=== PATIENT | female | born 1935 | race Caucasian/White ===

== ENCOUNTER 2016-11-21 09:51 | Day surgery (SDC) | payer MEDICARE, BC ==
[2016-11-21] MEDS ORDERED: LACTATED RINGERS 500 ML IV ONE (09:59)
[2016-11-21] MEDS ORDERED: TROPICAMIDE 1% OPHTH 2 ML DROPS OPTH ONE ×2 (10:00→10:10)
[2016-11-21] MEDS ORDERED: KETOROLAC 0.45% OPHTH DROPS OPTH ONE ×2 (10:00→10:10)
[2016-11-21] MEDS ORDERED: CYCLOPENTOLATE 1% OPHTH DROPS 2 ML OPTH ONE ×2 (10:00→10:10)
[2016-11-21] MEDS ORDERED: MIDAZOLAM 2 MG/2 ML VIAL IVP ONE (11:26)
[2016-11-21] MEDS ORDERED: PROPARACAINE 0.5% OPHTH DROPS 15 ML OPTH ONE (11:28)
[2016-11-21] MEDS ORDERED: BRIMONIDINE 0.2% OPHTH DROPS 5 ML OPTH ONE (11:29)
[2016-11-21] MEDS ORDERED: EPINEPHrine 1 MG/ML AMP IO ONE (11:29)
[2016-11-21] MEDS ORDERED: levoFLOXacin 0.5% OPHTH DROPS 5 ML OPTH ONE (11:29)
[2016-11-21] MEDS ORDERED: TETRACAINE OPHTH DROPS 2 ML OPTH ONE (11:29)
[2016-11-21] MEDS ORDERED: CHONDR SULF/HYALURONATE SYRINGE IO ONE (11:29)
[2016-11-21] MEDS ORDERED: BSS/LIDOCAINE/EPINEPHRINE 1 ML SYRINGE IO ONE (11:29)
== END 2016-11-21 09:52 | disposition home or self-care (01) ==
PROC: 08RJ3JZ Replacement of Right Lens with Synthetic Substitute, Percutaneous Approach (ICD-10-PCS; principal; 2016-11-21 11:00)
DX: H25.11 Age-related nuclear cataract, right eye (principal); J45.909 Unspecified asthma, uncomplicated; R01.1 Cardiac murmur, unspecified; J32.9 Chronic sinusitis, unspecified
CPT/HCPCS: 66984; V2632

== ENCOUNTER 2016-12-19 09:54 | Day surgery (SDC) | payer MEDICARE, BC ==
[2016-12-19] MEDS ORDERED: LACTATED RINGERS 500 ML IV ONE (10:07)
[2016-12-19] MEDS ORDERED: TROPICAMIDE 1% OPHTH 2 ML DROPS OPTH ONE (10:23)
[2016-12-19] MEDS ORDERED: CYCLOPENTOLATE 1% OPHTH DROPS 2 ML OPTH ONE (10:23)
[2016-12-19] MEDS ORDERED: KETOROLAC 0.45% OPHTH DROPS OPTH ONE (10:23)
[2016-12-19] MEDS ORDERED: MIDAZOLAM 2 MG/2 ML VIAL IVP ONE (11:45)
[2016-12-19] MEDS ORDERED: PROPARACAINE 0.5% OPHTH DROPS 15 ML OPTH ONE (11:59)
[2016-12-19] MEDS ORDERED: levoFLOXacin 0.5% OPHTH DROPS 5 ML OPTH ONE (12:00)
[2016-12-19] MEDS ORDERED: TETRACAINE OPHTH DROPS 2 ML OPTH ONE (12:00)
[2016-12-19] MEDS ORDERED: EPINEPHrine 1 MG/ML AMP IO ONE (12:00)
[2016-12-19] MEDS ORDERED: CHONDR SULF/HYALURONATE SYRINGE IO ONE (12:00)
[2016-12-19] MEDS ORDERED: BSS/LIDOCAINE/EPINEPHRINE 1 ML SYRINGE IO ONE (12:00)
[2016-12-19] MEDS ORDERED: BRIMONIDINE 0.2% OPHTH DROPS 5 ML OPTH ONE (12:00)
== END 2016-12-19 09:55 | disposition home or self-care (01) ==
PROC: 08RK3JZ Replacement of Left Lens with Synthetic Substitute, Percutaneous Approach (ICD-10-PCS; principal; 2016-12-19 10:40)
DX: H25.12 Age-related nuclear cataract, left eye (principal); R06.83 Snoring; J45.909 Unspecified asthma, uncomplicated
CPT/HCPCS: 66984; V2632

== ENCOUNTER 2017-05-14 09:39 | Outpatient (CLI) | payer MEDICARE, BC ==
[2017-05-14 10:10] LABS: BASOPHILS % (AUTO) 0.6 %; EOSINOPHILS # (AUTO) 0.2 10^3/uL (0.0-0.7); EOSINOPHILS % (AUTO) 3.1 %; HGB - HEMOGLOBIN 13.6 g/dL (12.0-16.0); LYMPHOCYTES # (AUTO) 2.2 10^3/uL (1.5-3.5); LYMPHOCYTES % (AUTO) 29.8 %; MEAN CORPUSCULAR HGB CONC 33.3 g/dL (32.0-36.0); MEAN PLATELET VOLUME 7.8 fL (7.9-10.8); MONOCYTES # (AUTO) 0.7 10^3/uL (0.0-1.0); MONOCYTES % (AUTO) 9.1 %; NEUTROPHILS # (AUTO) 4.3 10^3/uL (1.5-6.6); NEUTROPHILS % (AUTO) 57.4 %; RED BLOOD COUNT 4.26 10^6/uL (4.20-5.40); RED CELL DISTRIBUTION WIDTH 16.6 % (12.0-15.0); UNCORRECTED WHITE BLOOD COUNT 7.4 x10^3/uL; WHITE BLOOD COUNT 7.4 x10^3/uL (4.8-10.8)
[2017-05-14 10:30] LABS: ALBUMIN/GLOBULIN RATIO 1.5 (1.0-2.2); BILIRUBIN,TOTAL 0.8 mg/dL (0.2-1.0); BUN - BLOOD UREA NITROGEN 22 mg/dL (6-20); CALCIUM 9.5 mg/dL (8.5-10.3); CARBON DIOXIDE - CO2 29 mmol/L (21-32); CHLORIDE 104 mmol/L (101-111); CHOL/HDL RATIO 2.7 (<4.4); CHOLESTEROL 208 mg/dL; CREATININE 0.7 mg/dL (0.4-1.0); GFR - MDRD 81 (>89); GLUCOSE 94 mg/dL (70-100); HDL CHOLESTEROL 78 mg/dL; LDL/HDL RATIO 1.6 (<4.4); POTASSIUM 4.1 mmol/L (3.5-5.0); SODIUM 140 mmol/L (135-145); TOTAL PROTEIN 7.1 g/dL (6.7-8.2); TRIGLYCERIDES 42 mg/dL; VLDL CHOLESTEROL 8 mg/dL
== END 2017-05-14 09:40 | disposition home or self-care (01) ==
LOC: LAB 09:39
PROVIDERS: ATTEND Family Medicine
DX: H69.81 Other specified disorders of Eustachian tube, right ear (principal); E83.52 Hypercalcemia; E78.5 Hyperlipidemia, unspecified; K21.9 Gastro-esophageal reflux disease without esophagitis
CPT/HCPCS: 36415; 80053; 80061; 84443; 85025

== ENCOUNTER 2017-05-21 10:36 | Outpatient (CLI) | payer MEDICARE, BC ==
--- NOTE | 2017-05-23 07:58 | DEXA Report ---
DEXA BONE MINERAL DENSITY SCAN: 05/21/2017 CLINICAL HISTORY: A 81-year-old postmenopausal female with osteoporosis. TECHNIQUE: Dual energy x-ray absorptiometry (DXA) was performed on a [employer] system. Regions measured are the AP spine, femoral neck, and, if needed, forearm. COMPARISON: None. In accordance with the International Society for Clinical Densitometry (ISCD) guidelines, data from previous exams may be reanalyzed using current recommendations and techniques. This is done to allow a more accurate basis for comparison with the current study. FINDINGS: The data for the lumbar spine is as follows: REGION BMD (g/cm/cm) T-SCORE Z-SCORE L1 0.737 -3.3 -1.0 L2 0.873 -2.7 -0.4 L3 0.857 -2.9 -0.6 L4 0.953 -2.1 0.2 TOTAL 0.825 -2.9 -0.6 NOTE: All evaluable vertebrae are used for classification. The data for the hip is as follows: REGION BMD (g/cm/cm) T-SCORE Z-SCORE Neck 0.749 -2.1 0.3 TOTAL 0.718 -2.3 0.0 NOTE: The femoral neck or total proximal femur, whichever is lowest, is used for classification. IMPRESSION: L1 THROUGH L3 BONE MINERAL DENSITY IS 0.825 GRAMS/CM2 FOR A T-SCORE OF -2.9. THIS IS COMPATIBLE WITH OSTEOPOROSIS ACCORDING TO THE WORLD HEALTH ORGANIZATION GUIDELINES. LEFT HIP TOTAL BONE MINERAL DENSITY IS 0.718 GRAMS/CM2 FOR A T-SCORE OF -2.3. THIS IS COMPATIBLE WITH SIGNIFICANT OSTEOPENIA. LEFT FEMORAL NECK BONE MINERAL DENSITY IS 0.749 GRAMS/CM2 FOR A T-SCORE OF - 2.1. THIS IS COMPATIBLE WITH OSTEOPENIA ACCORDING TO THE WORLD HEALTH ORGANIZATION GUIDELINES. THE WHO CLASSIFICATION BASED ON THE INTERNATIONAL REFERENCE STANDARD IS OSTEOPOROSIS. THE PATIENT HAS SIGNIFICANT INCREASED FRACTURE RISK. RECOMMENDATION: Patients with diagnosis of osteoporosis or osteopenia should have regular bone mineral density assessment. For those eligible for Medicare, routine testing is allowed once every 2 years. Testing frequency can be increased for patients who have rapidly progressing disease or for those who are receiving medical therapy to restore bone mass. COMMENT: World Health Organization (WHO) definitions for osteoporosis and osteopenia: NORMAL BMD: T-score at -1.0 or higher, fracture risk is low. OSTEOPENIA BMD: T-score between -1.0 and -2.5, fracture risk is increased. OSTEOPOROSIS BMD: T-score at -2.5 or lower, fracture risk high. National Osteoporosis Foundation recommends: 1. Obtain adequate dietary calcium (at least 1200 mg per day) and vitamin D (400 -800 international units per day). 2. Participate, as appropriate, in regular weightbearing and muscle- strengthening exercise. 3. Avoid tobacco use and reduce alcohol and caffeine intake. 4. For more detailed information see the website at www.NOF.org. MTDD
== END 2017-05-21 10:37 | disposition home or self-care (01) ==
LOC: DI 10:36
PROVIDERS: ATTEND Family Medicine
DX: M81.0 Age-related osteoporosis without current pathological fracture (principal)
CPT/HCPCS: 36415; 77080; 82306

== ENCOUNTER 2017-05-21 11:02 | Outpatient (CLI) | payer MEDICARE, BC | END 2017-05-21 11:03 | disposition home or self-care (01) | LOC: LAB 11:02 | PROVIDERS: ATTEND Family Medicine | DX: M81.0 Age-related osteoporosis without current pathological fracture (principal); M85.9 Disorder of bone density and structure, unspecified | CPT/HCPCS: 36415; 82306 ==

== ENCOUNTER 2018-05-28 14:43 | Outpatient (CLI) | payer MEDICARE, BC ==
--- NOTE | 2018-05-29 15:41 | Mammography Report ---
Procedure Date: 05/28/2018 Accession Number: [id number] / [id number] Procedure: MGN - Screening Mammo Dig Bilat CPT Code: FULL RESULT: EXAM: Screening Mammo Dig Bilat DATE: 05/28/2018 3:17 PM CLINICAL HISTORY: 82-year-old female with history of early menses and family history of breast cancer in the mother at age 72. TECHNIQUE: Bilateral CC and MLO views were obtained. COMPARISON: 08/06/2016, 04/22/2015, 07/27/2013, 06/12/2012. FINDINGS: The breasts demonstrate scattered fibroglandular densities bilaterally. Coarse typically benign calcifications are seen bilaterally. No suspicious masses, clustered microcalcifications, or regions of architectural distortion are identified. IMPRESSION: Benign findings RECOMMENDATION: Routine annual screening unless otherwise clinically indicated. BIRADS CATEGORY 2: Benign findings STANDARD QUALIFYING STATEMENTS: 1. This examination was reviewed with the aid of Computer-Aided Detection (CAD). 2. A negative or benign imaging report should not delay biopsy if clinically suspicious findings are present. Consider surgical consultation if warrented. More than 5% of cancers are not identified by imaging. 3. Dense breasts may obscure an underlying neoplasm.
== END 2018-05-28 14:44 | disposition home or self-care (01) ==
LOC: DI.N 14:43
PROVIDERS: ATTEND Family Medicine
DX: Z12.31 Encounter for screening mammogram for malignant neoplasm of breast (principal); Z80.3 Family history of malignant neoplasm of breast
CPT/HCPCS: 77067

== ENCOUNTER 2018-06-17 09:17 | Outpatient (CLI) | payer MEDICARE, BC ==
[2018-06-17 09:46] LABS: BASOPHILS # (AUTO) 0.2 10^3/uL (0.0-0.1); BASOPHILS % (AUTO) 2.4 %; EOSINOPHILS # (AUTO) 0.3 10^3/uL (0.0-0.7); EOSINOPHILS % (AUTO) 3.3 %; HGB - HEMOGLOBIN 13.2 g/dL (12.0-16.0); LYMPHOCYTES # (AUTO) 2.4 10^3/uL (1.5-3.5); LYMPHOCYTES % (AUTO) 26.4 %; MEAN CORPUSCULAR HEMOGLOBIN 31.4 pg (27.0-31.0); MEAN CORPUSCULAR HGB CONC 33.2 g/dL (32.0-36.0); MEAN CORPUSCULAR VOLUME 94.5 fL (81.0-99.0); MEAN PLATELET VOLUME 7.8 fL (7.9-10.8); MONOCYTES # (AUTO) 0.8 10^3/uL (0.0-1.0); MONOCYTES % (AUTO) 8.5 %; NEUTROPHILS # (AUTO) 5.5 10^3/uL (1.5-6.6); NEUTROPHILS % (AUTO) 59.4 %; PLT - PLATELET COUNT 294 10^3/uL (130-450); RED BLOOD COUNT 4.21 10^6/uL (4.20-5.40); RED CELL DISTRIBUTION WIDTH 18.4 % (12.0-15.0); WHITE BLOOD COUNT 9.3 x10^3/uL (4.8-10.8)
[2018-06-17 10:11] LABS: ALBUMIN 4.1 g/dL (3.2-5.5); ALBUMIN/GLOBULIN RATIO 1.2 (1.0-2.2); ALKALINE PHOSPHATASE 112 IU/L (42-121); ALT ALANINE AMINOTRANSFERASE 30 IU/L (10-60); AST ASPARTATE AMINOTRANSFERASE 39 IU/L (10-42); BUN - BLOOD UREA NITROGEN 15 mg/dL (6-20); CALCIUM 9.2 mg/dL (8.5-10.3); CARBON DIOXIDE - CO2 30 mmol/L (21-32); CHLORIDE 102 mmol/L (101-111); CHOL/HDL RATIO 2.6 (<4.4); CHOLESTEROL 207 mg/dL; CREATININE 0.7 mg/dL (0.4-1.0); GFR - MDRD 81 (>89); GLUCOSE 86 mg/dL (70-100); HDL CHOLESTEROL 81 mg/dL; LDL CHOLESTEROL,CALCULATED 115 mg/dL; LDL/HDL RATIO 1.4 (<4.4); SODIUM 140 mmol/L (135-145); TOTAL PROTEIN 7.6 g/dL (6.7-8.2); VLDL CHOLESTEROL 11 mg/dL
== END 2018-06-17 09:18 | disposition home or self-care (01) ==
LOC: LAB 09:17
PROVIDERS: ATTEND Family Medicine
DX: R03.0 Elevated blood-pressure reading, without diagnosis of hypertension (principal); S32.030D Wedge compression fracture of third lumbar vertebra, subsequent encounter for fracture with routine healing; M54.2 Cervicalgia; N81.10 Cystocele, unspecified; R35.0 Frequency of micturition; I83.90 Asymptomatic varicose veins of unspecified lower extremity; I34.0 Nonrheumatic mitral (valve) insufficiency; I35.0 Nonrheumatic aortic (valve) stenosis
CPT/HCPCS: 36415; 80053; 80061; 83721; 84443; 85025

== ENCOUNTER 2018-09-12 12:58 | Emergency (ER) | payer MEDICARE, BC ==
--- NOTE | 2018-09-12 13:35 | ED Physician Documentation ---
History of Present Illness - Stated complaint Stated Complaint: NOSE BLEED - Chief complaint Chief Complaint: Heent - Additonal information Additional information: hx from pt 82 f to ED with L nares epsitaxis after sneeze no blood thinners also has and is planning to have AVR Review of Systems Nose: reports: Epistaxis Endocrine: denies: Easy bruising / bleeding PD PAST MEDICAL HISTORY - Past Medical History Cardiovascular: Murmur Respiratory: Asthma GI: GERD : None HEENT: Chronic sinusitis Psych: None Musculoskeletal: Osteoarthritis, Osteopenia - Past Surgical History Ortho: Carpal Tunnel surgery, Spine surgery - Present Medications Home Medications: Ambulatory Orders Medication Instructions Recorded Confirmed Beclomethasone Dipropionate [Qvar] 1 spray PO DAILY 05/01/16 12/18/16 Fluticasone [Flonase] 1 spray PO DAILY 05/01/16 12/18/16 Meclizine HCl [Antivert] 25 mg PO Q6H PRN #30 tablet 05/01/16 12/18/16 raNITIdine [Zantac] 150 mg PO DAILY 05/01/16 12/18/16 Albuterol Sulfate [Proair Hfa 1 puffs INH Q4HR PRN 11/21/16 12/18/16 Inhaler] Ascorbic Acid [Vitamin C] 500 mg PO DAILY 11/21/16 12/18/16 Aspirin [Aspir-Low] 81 mg PO DAILY 11/21/16 12/18/16 Calcium Carbonate/Vitamin D3 1 each PO DAILY 11/21/16 12/18/16 [Calcium 600-Vit D3 400 Tablet] Magnesium Oxide [Magnesium] 400 mg PO DAILY 11/21/16 12/18/16 Multivitamin [Multiple Vitamins] 1 tab PO DAILY 11/21/16 12/18/16 - Allergies Allergies/Adverse Reactions: Allergies Allergy/AdvReac Type Severity Reaction Status Date / Time pramipexole di-HCl * AdvReac Dizziness Verified 11/21/16 10:18 [From Mirapex] - Social History Does the pt smoke?: No Smoking Status: Never smoker Does the pt drink ETOH?: No Does the pt have substance abuse?: No PD ED PE NORMAL - Vitals Vital signs reviewed: Yes - HEENT HEENT: Other (L nares with several punctae spots of bleeding anterior plexus) - Cardiac Cardiac: RRR. No: No murmur (+ upper sternal murmur) - Respiratory Respiratory: Clear bilaterally Results - Vitals Vitals: Vital Signs - 24 hr 09/12/18 09/12/18 13:04 13:47 Temperature 36.5 C Heart Rate 83 84 Respiratory 18 18 Rate Blood Pressure 107/79 108/80 O2 Saturation 99 100 Oxygen O2 Source Room air Procedures - Epistaxis Site: Left Preparation: Clots removed, Afrin (pt used bell captain) Treatment: Silver Nitrate Other: Observed - no bleeding, O2 sat WNL. No: Pt tolerated well (she felt fa int and dizzy an dlaid down for a bit and recivered) PD MEDICAL DECISION MAKING - ED course ED course: pt due for AVR for and often feels faitn and dizzy - had an episode after cautery - this is not new and has been worked up and is being addressed by cardiology Departure - Departure Disposition: 01 Home, Self Care Clinical Impression: Epistaxis Condition: Good Instructions: ED Nosebleed Follow-Up: Leah Hook MD [Primary Care Provider] - Comments: I have cauterized the bleeding spots and the bleeding has stopped If for some reason the bleeding starts again, please do the following steps 1) gently blow your nose to remove any clots 2) give yourself a big squirt of afrin in the bleeding nostril 3) apply the nose clamp we gave you and leave it on for a full 30 minutes 4) if that doesn't stop the bleeding, come back to the ER
[2018-09-12 13:49] VITALS: BP 108/80
== END 2018-09-12 13:47 | disposition home or self-care (01) ==
LOC: ED 12:58
DX: R04.0 Epistaxis (principal); Z79.82 Long term (current) use of aspirin
CPT/HCPCS: 30901; 99282; 99283

== ENCOUNTER 2019-01-28 12:42 | Outpatient (CLI) | payer MEDICARE, BC ==
[2019-01-28 13:05] LABS: INR 1.5 (0.8-1.2); PT - PROTHROMBIN TIME 16.5 secs (9.9-12.6)
== END 2019-01-28 12:43 | disposition home or self-care (01) ==
LOC: LAB 12:42
DX: I48.91 Unspecified atrial fibrillation (principal)
CPT/HCPCS: 36415; 85610

== ENCOUNTER 2019-01-30 12:11 | Outpatient (CLI) | payer MEDICARE, BC | END 2019-01-30 12:12 | disposition home or self-care (01) | LOC: LAB 12:11 | PROVIDERS: ATTEND Family Medicine | DX: Z95.2 Presence of prosthetic heart valve (principal) | CPT/HCPCS: 85610 ==

== ENCOUNTER 2019-02-06 11:55 | Outpatient (CLI) | payer MEDICARE, BC | END 2019-02-06 11:56 | disposition home or self-care (01) | LOC: LAB 11:55 | PROVIDERS: ATTEND Family Medicine | DX: Z95.2 Presence of prosthetic heart valve (principal) | CPT/HCPCS: 85610 ==

== ENCOUNTER 2019-02-16 11:55 | Outpatient (CLI) | payer MEDICARE, BC | END 2019-02-16 11:56 | disposition home or self-care (01) | LOC: LAB 11:55 | PROVIDERS: ATTEND Family Medicine | DX: Z95.2 Presence of prosthetic heart valve (principal) | CPT/HCPCS: 36415; 85610 ==

== ENCOUNTER 2019-02-23 12:05 | Outpatient (CLI) | payer MEDICARE, BC | END 2019-02-23 12:06 | disposition home or self-care (01) | LOC: LAB 12:05 | PROVIDERS: ATTEND Family Medicine | DX: Z95.2 Presence of prosthetic heart valve (principal) | CPT/HCPCS: 85610 ==

== ENCOUNTER 2019-03-03 14:53 | Outpatient (CLI) | payer MEDICARE, BC | END 2019-03-03 14:54 | disposition home or self-care (01) | LOC: LAB 14:53 | PROVIDERS: ATTEND Family Medicine | DX: Z95.2 Presence of prosthetic heart valve (principal) | CPT/HCPCS: 85610 ==

== ENCOUNTER 2019-03-11 09:55 | Outpatient (CLI) | payer MEDICARE, BC | END 2019-03-11 09:56 | disposition home or self-care (01) | LOC: LAB 09:55 | PROVIDERS: ATTEND Family Medicine | DX: Z95.2 Presence of prosthetic heart valve (principal) | CPT/HCPCS: 85610 ==

== ENCOUNTER 2019-03-18 11:48 | Outpatient (CLI) | payer MEDICARE, BC | END 2019-03-18 11:49 | disposition home or self-care (01) | LOC: LAB 11:48 | PROVIDERS: ATTEND Family Medicine | DX: Z95.2 Presence of prosthetic heart valve (principal) | CPT/HCPCS: 85610 ==

== ENCOUNTER 2019-03-25 11:55 | Outpatient (CLI) | payer MEDICARE, BC | END 2019-03-25 11:56 | disposition home or self-care (01) | LOC: LAB 11:55 | PROVIDERS: ATTEND Family Medicine | DX: Z95.2 Presence of prosthetic heart valve (principal) | CPT/HCPCS: 85610 ==

== ENCOUNTER 2019-04-01 11:58 | Outpatient (CLI) | payer MEDICARE, BC | END 2019-04-01 11:59 | disposition home or self-care (01) | LOC: LAB 11:58 | PROVIDERS: ATTEND Family Medicine | DX: Z95.2 Presence of prosthetic heart valve (principal) | CPT/HCPCS: 85610 ==

== ENCOUNTER 2019-04-15 11:51 | Outpatient (CLI) | payer MEDICARE, BC | END 2019-04-15 11:52 | disposition home or self-care (01) | LOC: LAB 11:51 | PROVIDERS: ATTEND Family Medicine | DX: Z95.2 Presence of prosthetic heart valve (principal) | CPT/HCPCS: 85610 ==

== ENCOUNTER 2019-04-22 08:00 | Outpatient (CLI) | payer MEDICARE, BC ==
[2019-04-22 09:34] LABS: BASOPHILS # (AUTO) 0.2 10^3/uL (0.0-0.1); BASOPHILS % (AUTO) 1.1 %; EOSINOPHILS # (AUTO) 0.3 10^3/uL (0.0-0.7); EOSINOPHILS % (AUTO) 2.2 %; HGB - HEMOGLOBIN 13.1 g/dL (12.0-16.0); LYMPHOCYTES # (AUTO) 1.8 10^3/uL (1.5-3.5); LYMPHOCYTES % (AUTO) 13.9 %; MEAN CORPUSCULAR HEMOGLOBIN 29.6 pg (27.0-31.0); MEAN CORPUSCULAR HGB CONC 30.5 g/dL (32.0-36.0); MEAN CORPUSCULAR VOLUME 97.1 fL (81.0-99.0); MEAN PLATELET VOLUME 9.9 fL (7.9-10.8); MONOCYTES # (AUTO) 1.1 10^3/uL (0.0-1.0); MONOCYTES % (AUTO) 8.3 %; NEUTROPHILS # (AUTO) 9.7 10^3/uL (1.5-6.6); PLT - PLATELET COUNT 252 10^3/uL (130-450); RED BLOOD COUNT 4.42 10^6/uL (4.20-5.40); RED CELL DISTRIBUTION WIDTH 16.7 % (12.0-15.0); WHITE BLOOD COUNT 13.1 x10^3/uL (4.8-10.8)
[2019-04-22 09:55] LABS: ALBUMIN 4.5 g/dL (3.2-5.5); ALBUMIN/GLOBULIN RATIO 1.2 (1.0-2.2); ALKALINE PHOSPHATASE 117 IU/L (42-121); ALT ALANINE AMINOTRANSFERASE 40 IU/L (10-60); AST ASPARTATE AMINOTRANSFERASE 50 IU/L (10-42); BILIRUBIN,TOTAL 1.1 mg/dL (0.2-1.0); BUN - BLOOD UREA NITROGEN 26 mg/dL (6-20); CALCIUM 9.5 mg/dL (8.5-10.3); CARBON DIOXIDE - CO2 26 mmol/L (21-32); CHLORIDE 101 mmol/L (101-111); CHOL/HDL RATIO 2.7 (<4.4); CHOLESTEROL 226 mg/dL; CREATININE 0.8 mg/dL (0.4-1.0); GFR - MDRD 69 (>89); GLUCOSE 91 mg/dL (70-100); HDL CHOLESTEROL 85 mg/dL; LDL CHOLESTEROL,CALCULATED 126 mg/dL; LDL/HDL RATIO 1.5 (<4.4); SODIUM 138 mmol/L (135-145); TOTAL PROTEIN 8.2 g/dL (6.7-8.2); VLDL CHOLESTEROL 15 mg/dL
== END 2019-04-22 23:59 | disposition home or self-care (01) ==
LOC: LAB 08:00
PROVIDERS: ATTEND Family Medicine
DX: E78.5 Hyperlipidemia, unspecified (principal); I10 Essential (primary) hypertension
CPT/HCPCS: 36415; 80053; 80061; 83721; 84443; 85025

== ENCOUNTER 2019-04-27 11:24 | Emergency (ER) | payer MEDICARE, BC ==
[2019-04-27 12:25] LABS: BASOPHILS # (AUTO) 0.1 10^3/uL (0.0-0.1); BASOPHILS % (AUTO) 1.3 %; EOSINOPHILS # (AUTO) 0.4 10^3/uL (0.0-0.7); EOSINOPHILS % (AUTO) 3.7 %; HGB - HEMOGLOBIN 13.7 g/dL (12.0-16.0); LYMPHOCYTES # (AUTO) 2.7 10^3/uL (1.5-3.5); LYMPHOCYTES % (AUTO) 26.6 %; MEAN CORPUSCULAR HEMOGLOBIN 29.7 pg (27.0-31.0); MEAN CORPUSCULAR HGB CONC 30.3 g/dL (32.0-36.0); MEAN CORPUSCULAR VOLUME 97.8 fL (81.0-99.0); MONOCYTES # (AUTO) 0.7 10^3/uL (0.0-1.0); NEUTROPHILS # (AUTO) 6.3 10^3/uL (1.5-6.6); PLT - PLATELET COUNT 261 10^3/uL (130-450); RED BLOOD COUNT 4.62 10^6/uL (4.20-5.40); RED CELL DISTRIBUTION WIDTH 16.9 % (12.0-15.0); WHITE BLOOD COUNT 10.3 x10^3/uL (4.8-10.8)
[2019-04-27 12:39] LABS: ALBUMIN 4.4 g/dL (3.2-5.5); ALBUMIN/GLOBULIN RATIO 1.2 (1.0-2.2); BILIRUBIN,TOTAL 0.7 mg/dL (0.2-1.0); CALCIUM 9.8 mg/dL (8.5-10.3); CREATININE 0.7 mg/dL (0.4-1.0)
--- NOTE | 2019-04-27 12:46 | XRAY Report ---
Reason: lightheaded, cardiac rehab pt Procedure Date: 04/27/2019 Accession Number: [id number] / [id number] Procedure: XR - Chest 1 View X-Ray CPT Code: 54646 FULL RESULT: EXAM: CHEST RADIOGRAPHY EXAM DATE: 04/27/2019 12:21 PM. CLINICAL HISTORY: Lightheaded, cardiac rehab pt. COMPARISON: None. TECHNIQUE: 1 view. FINDINGS: Lungs/Pleura: No acute pulmonary consolidation is detected. There is no overt pulmonary edema. There is no sizable pleural effusion or pneumothorax. Mediastinum: Enlarged cardiomediastinal silhouette in the setting of stent material in the region of the aortic valve, possible TAVR, prior median sternotomy changes and a pacemaker with leads in expected positions. Other: Additional hardware projecting along the extent of sternal wires, possible further sternal fixation hardware. IMPRESSION: Cardiomegaly and prior cardiac surgery. No acute pulmonary abnormality detected. RADIA
--- NOTE | 2019-04-27 13:32 | ED Physician Documentation ---
PD HPI SYNCOPE - Stated complaint Stated Complaint: LIGHT HEADED - Chief complaint Chief Complaint: Critical Care - History obtained from History obtained from: Patient - History of Present Illness Witnessed: Witnessed (she was on treadmill at Cardiac Rehab, and the mechine was just placed to some incline, as she was doing it, and she felt dyspnea and off balance (versus lightheaded, and she has hard time describing what she is feeling - more lightheaded versus more off balance/falling? Able to talk through the symptoms.) Timing - onset: How many minutes ago (was in Cardiac Rehab with symptoms onset of feeling like she was going to fall over, and she is feeling better now.) Preceding symptoms: Nausea / vomiting, Light headed (with feeling of vertigo and off balance.). No: Chest pain, Abdominal pain Associated symptoms: Headache (some frontal headache for past 2-3 weeks intermittently.). No: Chest pain Similar symptoms before: No diagnosis (had similar symptoms last Saturday (3 days ago) also when on treadmill at Cardiac Rehab, with not as much feeling of off- balance. No chest pain and BP was good through.) Recently seen: Clinic, Not recently seen Review of Systems Constitutional: denies: Fever, Chills, Myalgias Eyes: denies: Loss of vision, Decreased vision Ears: denies: Reviewed and negative Nose: reports: Sinus pressure / pain (chronically but worse the past week or so.). denies: Rhinorrhea / runny nose, Congestion Throat: denies: Dental pain / toothache Cardiac: denies: Chest pain / pressure, Palpitations Respiratory: denies: Dyspnea, Cough Musculoskeletal: denies: Neck pain, Back pain Neurologic: reports: Generalized weakness. denies: Focal weakness, Numbness Endocrine: denies: Weight loss, Weight gain PD PAST MEDICAL HISTORY - Past Medical History Cardiovascular: Murmur Respiratory: Asthma GI: GERD : None HEENT: Chronic sinusitis Psych: None Musculoskeletal: Osteoarthritis, Osteopenia - Past Surgical History Ortho: Carpal Tunnel surgery, Spine surgery - Present Medications Home Medications: Ambulatory Orders Medication Instructions Recorded Confirmed Beclomethasone Dipropionate [Qvar] 1 spray PO DAILY 05/01/16 12/18/16 Fluticasone [Flonase] 1 spray PO DAILY 05/01/16 12/18/16 Meclizine HCl [Antivert] 25 mg PO Q6H PRN #30 tablet 05/01/16 12/18/16 raNITIdine [Zantac] 150 mg PO DAILY 05/01/16 12/18/16 Albuterol Sulfate [Proair Hfa 1 puffs INH Q4HR PRN 11/21/16 12/18/16 Inhaler] Ascorbic Acid [Vitamin C] 500 mg PO DAILY 11/21/16 12/18/16 Aspirin [Aspir-Low] 81 mg PO DAILY 11/21/16 12/18/16 Calcium Carbonate/Vitamin D3 1 each PO DAILY 11/21/16 12/18/16 [Calcium 600-Vit D3 400 Tablet] Magnesium Oxide [Magnesium] 400 mg PO DAILY 11/21/16 12/18/16 Multivitamin [Multiple Vitamins] 1 tab PO DAILY 11/21/16 12/18/16 Meclizine [Antivert] 12.5 mg PO Q6H PRN #30 tablet 04/27/19 dexAMETHasone [Decadron] 4 mg PO DAILY #5 tablet 04/27/19 - Allergies Allergies/Adverse Reactions: Allergies Allergy/AdvReac Type Severity Reaction Status Date / Time gabapentin AdvReac Dizziness Verified 04/27/19 11:41 pramipexole di-HCl * AdvReac Dizziness Verified 04/27/19 11:41 [From Mirapex] - Living Situation Living Situation: reports: Alone, With caregiver(s) - Social History Does the pt smoke?: No Smoking Status: Never smoker Does the pt drink ETOH?: No Does the pt have substance abuse?: No PD ED PE NORMAL - Vitals Vital signs reviewed: Yes - General General: Alert and oriented X 3, No acute distress, Well developed/nourished - HEENT HEENT: Ears normal, Pharynx benign, Other (frontal sinus pressure to percussion. ) - Neck Neck: Supple, no meningeal sign, No adenopathy, No JVD, No bruit - Cardiac Cardiac: RRR, No murmur - Respiratory Respiratory: No respiratory distress, Clear bilaterally - Abdomen Abdomen: Normal bowel sounds, Soft, Non tender - Female Female : Deferred - Rectal Rectal: Deferred - Back Back: No CVA TTP - Derm Derm: Normal color, Warm and dry - Neuro Neuro: No motor deficit, No sensory deficit Results - Vitals Vitals: Vital Signs - 24 hr 04/27/19 04/27/19 04/27/19 11:26 13:31 16:12 Temperature 36.6 C 36.5 C Heart Rate 73 82 54 L Respiratory 14 18 14 Rate Blood Pressure 154/78 H 148/76 H 131/74 H O2 Saturation 100 99 97 Oxygen O2 Source Room air - EKG (time done) 11:32 Rate: Rate (enter#) (76) Rhythm: NSR Intervals: RBBB Ischemia: Normal ST segments, Non specific changes. No: ST elevation c/w ischemia, ST depression - Labs Labs: Laboratory Tests 04/27/19 04/27/19 04/27/19 12:20 12:20 12:20 WBC 10.3 RBC 4.62 Hgb 13.7 Hct 45.2 MCV 97.8 MCH 29.7 MCHC 30.3 L RDW 16.9 H Plt Count 261 MPV 10.0 Neut # (Auto) 6.3 Lymph # (Auto) 2.7 [place] # (Auto) 0.7 Eos # (Auto) 0.4 Baso # (Auto) 0.1 Absolute Nucleated RBC 0.00 Nucleated RBC % 0.0 PT INR Sodium 138 Potassium 4.0 Chloride 101 Carbon Dioxide 26 Anion Gap 11.0 BUN 17 Creatinine 0.7 Estimated GFR (MDRD) 80 L Glucose 94 Calcium 9.8 Magnesium Total Bilirubin 0.7 AST 54 H ALT 48 Alkaline Phosphatase 134 H Troponin I < 0.04 B-Natriuretic Peptide Total Protein 8.0 Albumin 4.4 Globulin 3.6 Albumin/Globulin Ratio 1.2 Lipase 42 Urine Color Urine Clarity Urine pH Ur Specific [place] Urine Protein Urine Glucose (UA) Urine Ketones Urine Occult Blood Urine Nitrite Urine Bilirubin Urine Urobilinogen Ur Leukocyte Esterase Urine RBC Urine WBC Ur Squamous Epith Cells Urine Bacteria Urine Culture Comments 04/27/19 04/27/19 04/27/19 12:20 12:20 12:20 WBC RBC Hgb Hct MCV MCH MCHC RDW Plt Count MPV Neut # (Auto) Lymph # (Auto) [place] # (Auto) Eos # (Auto) Baso # (Auto) Absolute Nucleated RBC Nucleated RBC % PT 27.4 H INR 2.5 H Sodium Potassium Chloride Carbon Dioxide Anion Gap BUN Creatinine Estimated GFR (MDRD) Glucose Calcium Magnesium 2.6 Total Bilirubin AST ALT Alkaline Phosphatase Troponin I B-Natriuretic Peptide 337 H Total Protein Albumin Globulin Albumin/Globulin Ratio Lipase Urine Color Urine Clarity Urine pH Ur Specific [place] Urine Protein Urine Glucose (UA) Urine Ketones Urine Occult Blood Urine Nitrite Urine Bilirubin Urine Urobilinogen Ur Leukocyte Esterase Urine RBC Urine WBC Ur Squamous Epith Cells Urine Bacteria Urine Culture Comments 04/27/19 15:57 WBC RBC Hgb Hct MCV MCH MCHC RDW Plt Count MPV Neut # (Auto) Lymph # (Auto) [place] # (Auto) Eos # (Auto) Baso # (Auto) Absolute Nucleated RBC Nucleated RBC % PT INR Sodium Potassium Chloride Carbon Dioxide Anion Gap BUN Creatinine Estimated GFR (MDRD) Glucose Calcium Magnesium Total Bilirubin AST ALT Alkaline Phosphatase Troponin I B-Natriuretic Peptide Total Protein Albumin Globulin Albumin/Globulin Ratio Lipase Urine Color LIGHT YELLOW Urine Clarity CLEAR Urine pH 7.5 Ur Specific [place] <=1.005 Urine Protein NEGATIVE Urine Glucose (UA) NEGATIVE Urine Ketones NEGATIVE Urine Occult Blood NEGATIVE Urine Nitrite NEGATIVE Urine Bilirubin NEGATIVE Urine Urobilinogen 0.2 (NORMAL) Ur Leukocyte Esterase NEGATIVE Urine RBC 0-5 Urine WBC 0-3 Ur Squamous Epith Cells RARE Squamous Urine Bacteria Rare Urine Culture Comments NOT INDICATED - Rads (name of study) chest xray Radiology: Prelim report reviewed (cardiomegaly, with clear rucker otherwise. ), EMP read contemporaneously, See rad report head CT Radiology: Prelim report reviewed (sinus congestion, appears wall thickening. No bleeding. ), EMP read contemporaneously, See rad report PD MEDICAL DECISION MAKING - ED course Complexity details: re-evaluated patient, considered differential (somewhat describes as congestion, URI, vertigo and would eval/treat with the brain being focus of issue. ), d/w patient ED course: Symptoms better with Meclizine. Seems likely inner ear and contributed it to the symptoms of vertigo. Has pacer and regular rhythm, so presume is not heart related. Got most recent ECHO from April 12, and had EF 45%. Normal wall motion (report gotten from [place]). Departure - Departure Disposition: 01 Home, Self Care Clinical Impression: Episodic lightheadedness, Vertigo Acute inflammation of sinus Qualifiers: Sinusitis location: unspecified location Recurrence: recurrent Qualified Code(s): J01.91 - Acute recurrent sinusitis, unspecified Condition: Stable Record reviewed to determine appropriate education?: Yes Instructions: ED Dizziness UKO Follow-Up: Leah Hook MD [Primary Care Provider] - Prescriptions: dexAMETHasone [Decadron] 4 mg PO DAILY #5 tablet Meclizine [Antivert] 12.5 mg PO Q6H PRN #30 tablet PRN Reason: Vertigo Comments: Continue your current medications. Add Decadron steroid orally for the next 5 days to reduce inflammation in the sinuses and presumably the inner ear. Add meclizine as needed for dizziness. Continue with the cardiac rehab. Follow-up with your primary care in the next several days, call for an appointment. Your recent echocardiogram at [facility] showed good function of the heart valve and general pumping of the heart. I do not think this is a heart related episode with your feeling off balance and lightheaded. Discharge Date/Time: 04/27/19 16:17
[2019-04-27] MEDS ORDERED: MECLIZINE 12.5 MG TABLET PO STA (14:32)
[2019-04-27] MEDS ORDERED: ACETAMINOPHEN 325 MG TABLET PO STA (14:32)
[2019-04-27 15:15] LABS: INR 2.5 (0.8-1.2); PT - PROTHROMBIN TIME 27.4 secs (9.9-12.6)
--- NOTE | 2019-04-27 15:37 | CT Report ---
Reason: headache and lightheaded; on coumadin Procedure Date: 04/27/2019 Accession Number: [id number] / [id number] Procedure: CT - HEAD WO CPT Code: FULL RESULT: EXAM: CT HEAD EXAM DATE: 04/27/2019 03:25 PM. CLINICAL HISTORY: Headache and lightheaded; on Coumadin. COMPARISON: HEAD W/O 05/01/2016 10:25 AM. TECHNIQUE: Multiaxial CT images were obtained from the foramen magnum to the vertex. Reformats: Sagittal and coronal. IV contrast: None. In accordance with CT protocol optimization, one or more of the following dose reduction techniques were utilized for this exam: automated exposure control, adjustment of mA and/or KV based on patient size, or use of iterative reconstructive technique. FINDINGS: Parenchyma: No intraparenchymal hemorrhage. No evidence of mass, midline shift. Rubalcava-white differentiation is distinct. Extraaxial Spaces: Normal for age. No subdural or epidural collections identified. Ventricles: Normal in size and position. Sinuses and Orbits: Partial opacification of the ethmoid air cells and portions of the frontal sinuses are again seen, less pronounced compared to prior. There is a minimal amount of right mastoid fluid with the remaining mastoids aerated. Orbits are within normal limits. Bones: No evidence of fracture or calvarial defect. Other: None. IMPRESSION: No acute intracranial abnormality. Redemonstration of sinus disease. RADIA
[2019-04-27 16:01] LABS: BILIRUBIN,URINE NEGATIVE (NEGATIVE); GLUCOSE, URINE (UA) NEGATIVE (NEGATIVE); KETONES,URINE (UA) NEGATIVE (NEGATIVE); LEUKOCYTE ESTERASE, URINE NEGATIVE (NEGATIVE); NITRITE,URINE NEGATIVE (NEGATIVE); OCCULT BLOOD,URINE NEGATIVE (NEGATIVE); PH,URINE 7.5 PH (5.0-7.5); PROTEIN,URINE NEGATIVE (NEGATIVE); UROBILINOGEN,URINE 0.2 (NORMAL) E.U./dL (NORMAL)
[2019-04-27] MEDS ORDERED: CHERRY SYRUP 10 ML UDC PO ONE (16:01)
[2019-04-27] MEDS ORDERED: DEXAMETHASONE 10 MG/ML VIAL PO STA (16:01)
[2019-04-27 16:06] LABS: CLARITY,URINE CLEAR (CLEAR)
[2019-04-27 16:12] VITALS: BP 131/74
[2019-04-27 16:19] LABS: BACTERIA,URINE Rare /HPF (None Seen); RBC,URINE 0-5 /HPF (0-5); SQUAMOUS EPITHELIAL CELL,UR RARE Squamous (<= Few)
== END 2019-04-27 16:17 | disposition home or self-care (01) ==
LOC: ED 11:24
DX: R42 Dizziness and giddiness (principal); J01.91 Acute recurrent sinusitis, unspecified; I51.7 Cardiomegaly; I45.10 Unspecified right bundle-branch block; Z95.0 Presence of cardiac pacemaker; Z79.82 Long term (current) use of aspirin
CPT/HCPCS: 36415; 70450; 71045; 80053; 81001; 83690; 83735; 83880; 84484; 85025; 85610; 93005; 99283; A9270; 87086

== ENCOUNTER 2019-05-20 15:31 | Outpatient (CLI) | payer MEDICARE, BC | END 2019-05-20 15:32 | disposition home or self-care (01) | LOC: LAB 15:31 | PROVIDERS: ATTEND Family Medicine | DX: Z95.2 Presence of prosthetic heart valve (principal) | CPT/HCPCS: 85610 ==

== ENCOUNTER 2019-06-03 16:15 | Outpatient (CLI) | payer MEDICARE, BC | END 2019-06-03 16:16 | disposition home or self-care (01) | LOC: LAB 16:15 | PROVIDERS: ATTEND Family Medicine | DX: Z95.2 Presence of prosthetic heart valve (principal) | CPT/HCPCS: 85610 ==

== ENCOUNTER 2019-07-24 16:19 | Outpatient (CLI) | payer MEDICARE, BC | END 2019-07-24 16:20 | disposition home or self-care (01) | LOC: LAB 16:19 | PROVIDERS: ATTEND Family Medicine | DX: Z95.2 Presence of prosthetic heart valve (principal) | CPT/HCPCS: 85610 ==

== ENCOUNTER 2019-08-05 16:27 | Outpatient (CLI) | payer MEDICARE, BC | END 2019-08-05 16:28 | disposition home or self-care (01) | LOC: LAB 16:27 | PROVIDERS: ATTEND Family Medicine | DX: Z95.2 Presence of prosthetic heart valve (principal) | CPT/HCPCS: 85610 ==

== ENCOUNTER 2019-08-12 16:57 | Outpatient (CLI) | payer MEDICARE, BC | END 2019-08-12 16:58 | disposition home or self-care (01) | LOC: LAB 16:57 | PROVIDERS: ATTEND Family Medicine | DX: Z95.2 Presence of prosthetic heart valve (principal) | CPT/HCPCS: 85610 ==

== ENCOUNTER 2019-08-13 11:51 | Emergency (ER) | payer MEDICARE, BC ==
[2019-08-13 11:59] VITALS: BP 128/82
[2019-08-13] MEDS ORDERED: OXYMETAZOLINE HCL 100 SPRAYS BOTTLE NAS STA (12:15)
[2019-08-13] MEDS ORDERED: LIDOCAINE 1%-EPI 1:100000 20 ML MDV SUBQ STA (12:15)
--- NOTE | 2019-08-13 12:16 | ED Physician Documentation ---
History of Present Illness - Stated complaint Stated Complaint: NOSE BLEED - Chief complaint Chief Complaint: General - History obtained from History obtained from: Patient (83-year-old woman on warfarin for history of aortic valve disease. She presents with a nosebleed for the last 3 hours or so. She does get a lot of nosebleeds but this 1 is heavier than her usual.) Review of Systems Constitutional: denies: Fever, Chills Nose: reports: Rhinorrhea / runny nose, Congestion, Epistaxis. 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: None : None HEENT: Chronic sinusitis Psych: None Musculoskeletal: Osteoarthritis, Osteopenia Derm: None - Past Surgical History Past Surgical History: Yes Ortho: Carpal Tunnel surgery, Spine surgery Cardiovascular: CABG, Valve replacement, Pacemaker - Present Medications Home Medications: Ambulatory Orders Medication Instructions Recorded Confirmed Beclomethasone Dipropionate [Qvar] 1 spray PO DAILY 05/01/16 12/18/16 Fluticasone [Flonase] 1 spray PO DAILY 05/01/16 12/18/16 Meclizine HCl [Antivert] 25 mg PO Q6H PRN #30 tablet 05/01/16 12/18/16 raNITIdine [Zantac] 150 mg PO DAILY 05/01/16 12/18/16 Albuterol Sulfate [Proair Hfa 1 puffs INH Q4HR PRN 11/21/16 12/18/16 Inhaler] Ascorbic Acid [Vitamin C] 500 mg PO DAILY 11/21/16 12/18/16 Aspirin [Aspir-Low] 81 mg PO DAILY 11/21/16 12/18/16 Calcium Carbonate/Vitamin D3 1 each PO DAILY 11/21/16 12/18/16 [Calcium 600-Vit D3 400 Tablet] Magnesium Oxide [Magnesium] 400 mg PO DAILY 11/21/16 12/18/16 Multivitamin [Multiple Vitamins] 1 tab PO DAILY 11/21/16 12/18/16 Meclizine [Antivert] 12.5 mg PO Q6H PRN #30 tablet 04/27/19 dexAMETHasone [Decadron] 4 mg PO DAILY #5 tablet 04/27/19 - Allergies Allergies/Adverse Reactions: Allergies Allergy/AdvReac Type Severity Reaction Status Date / Time gabapentin AdvReac Dizziness Verified 04/27/19 11:41 pramipexole di-HCl * AdvReac Dizziness Verified 04/27/19 11:41 [From Mirapex] - Social History Does the pt smoke?: No Smoking Status: Never smoker Does the pt drink ETOH?: No Does the pt have substance abuse?: No - Immunizations Immunizations are current?: Yes - POLST Patient has POLST: No PD ED PE NORMAL - Vitals Vital signs reviewed: Yes - General General: Alert and oriented X 3, No acute distress - HEENT HEENT: Other (On initial evaluation she has a nasal clamp in place with some bloody tissues over top.) - Cardiac Cardiac: RRR - Neuro Neuro: Alert and oriented X 3, Normal speech - Psych Psych: Normal mood, Normal affect Results - Vitals Vitals: Vital Signs - 24 hr 08/13/19 11:56 Temperature 36.4 C L Heart Rate 87 Respiratory 18 Rate Blood Pressure 128/82 H O2 Saturation 95 Oxygen O2 Source Room air Procedures - Epistaxis Site: Left Preparation: Clots removed, Afrin, Lidocaine Treatment: Silver Nitrate Other: Observed - no bleeding Departure - Departure Disposition: 01 Home, Self Care Clinical Impression: Epistaxis, Adequate anticoagulation on anticoagulant therapy Condition: Good Record reviewed to determine appropriate education?: Yes Instructions: ED Nosebleed
== END 2019-08-13 12:58 | disposition home or self-care (01) ==
LOC: ED 11:51
DX: R04.0 Epistaxis (principal); Z95.2 Presence of prosthetic heart valve; Z79.01 Long term (current) use of anticoagulants; Z79.82 Long term (current) use of aspirin
CPT/HCPCS: 30901; 85610; 99282; 99283; A9270

== ENCOUNTER 2019-09-05 11:47 | Outpatient (CLI) | payer MEDICARE, BC ==
[2019-09-05 12:03] LABS: BASOPHILS # (AUTO) 0.1 10^3/uL (0.0-0.1); BASOPHILS % (AUTO) 1.5 %; EOSINOPHILS # (AUTO) 0.2 10^3/uL (0.0-0.7); EOSINOPHILS % (AUTO) 2.1 %; HGB - HEMOGLOBIN 12.8 g/dL (12.0-16.0); LYMPHOCYTES # (AUTO) 2.5 10^3/uL (1.5-3.5); LYMPHOCYTES % (AUTO) 28.4 %; MEAN CORPUSCULAR HEMOGLOBIN 30.9 pg (27.0-31.0); MEAN CORPUSCULAR HGB CONC 31.1 g/dL (32.0-36.0); MEAN CORPUSCULAR VOLUME 99.5 fL (81.0-99.0); MEAN PLATELET VOLUME 9.2 fL (7.9-10.8); MONOCYTES # (AUTO) 0.8 10^3/uL (0.0-1.0); MONOCYTES % (AUTO) 9.7 %; NEUTROPHILS % (AUTO) 57.8 %; PLT - PLATELET COUNT 277 10^3/uL (130-450); RED BLOOD COUNT 4.14 10^6/uL (4.20-5.40); RED CELL DISTRIBUTION WIDTH 16.3 % (12.0-15.0); WHITE BLOOD COUNT 8.7 x10^3/uL (4.8-10.8)
[2019-09-05 12:15] LABS: ALBUMIN 4.4 g/dL (3.2-5.5); ALBUMIN/GLOBULIN RATIO 1.2 (1.0-2.2); BILIRUBIN,TOTAL 0.6 mg/dL (0.2-1.0); CALCIUM 9.6 mg/dL (8.5-10.3); CREATININE 0.8 mg/dL (0.4-1.0)
== END 2019-09-05 11:48 | disposition home or self-care (01) ==
LOC: LAB 11:47
PROVIDERS: ATTEND Family Medicine
DX: I10 Essential (primary) hypertension (principal)
CPT/HCPCS: 36415; 80053; 85025

== ENCOUNTER 2019-09-15 16:30 | Outpatient (CLI) | payer MEDICARE, BC | END 2019-09-15 16:31 | disposition home or self-care (01) | LOC: LAB 16:30 | PROVIDERS: ATTEND Family Medicine | DX: Z95.2 Presence of prosthetic heart valve (principal) | CPT/HCPCS: 85610 ==

== ENCOUNTER 2019-10-16 15:42 | Outpatient (CLI) | payer MEDICARE, BC | END 2019-10-16 15:43 | disposition home or self-care (01) | LOC: LAB 15:42 | PROVIDERS: ATTEND Family Medicine | DX: Z95.2 Presence of prosthetic heart valve (principal) | CPT/HCPCS: 85610 ==

== ENCOUNTER 2019-11-19 15:31 | Outpatient (CLI) | payer MEDICARE, BC | END 2019-11-19 15:32 | disposition home or self-care (01) | LOC: LAB 15:31 | PROVIDERS: ATTEND Family Medicine | DX: Z95.2 Presence of prosthetic heart valve (principal) | CPT/HCPCS: 85610 ==

== ENCOUNTER 2019-12-17 11:59 | Outpatient (CLI) | payer MEDICARE, BC | END 2019-12-17 12:00 | disposition home or self-care (01) | LOC: LAB 11:59 | PROVIDERS: ATTEND Family Medicine | DX: Z95.2 Presence of prosthetic heart valve (principal) | CPT/HCPCS: 85610 ==

== ENCOUNTER 2019-12-31 17:40 | Outpatient (CLI) | payer MEDICARE, BC | END 2019-12-31 17:41 | disposition home or self-care (01) | LOC: LAB 17:40 | PROVIDERS: ATTEND Family Medicine | DX: Z95.2 Presence of prosthetic heart valve (principal) | CPT/HCPCS: 85610 ==

== ENCOUNTER 2021-02-08 15:53 | Outpatient (CLI) | payer MEDICARE, BC ==
--- NOTE | 2021-02-08 16:26 | XRAY Report ---
PROCEDURE: Lumbar Spine 2 View INDICATIONS: LOW BACK PAIN TECHNIQUE: views of the lumbar spine were acquired. COMPARISON: None. FINDINGS: Bones: 5 [id number] vertebrae are present. There is mild levoscoliotic bony alignment centered at L3-4. No vertebral body compression fractures. No suspicious bony lesions. , L4-5, and a mild degree at L5-S1. Facet osteoarthritis becomes progressively more prominent from L3 through S1 Soft tissues: Overlying bowel gas pattern is normal. No suspicious soft tissue calcifications. IMPRESSION: Moderate degenerative disc disease along the lumbosacral spine from L3 through S1 with f acet osteoarthritis superimposed and most prominent at L4-5 and L5-S1. Spinal and foraminal stenosis would be suspected at the lower 2 levels of the LS-spine. No acute trauma or chronic compression frac ture is found. Reviewed by: Ozzy Gambino MD on 02/08/2021 4:25 PM PDT Approved by: Ozzy Gambino MD on 02/08/2021 4:25 PM PDT Station ID: [id number]
== END 2021-02-08 15:54 | disposition home or self-care (01) ==
LOC: DI 15:53
PROVIDERS: ATTEND Internal Medicine
DX: M47.816 Spondylosis without myelopathy or radiculopathy, lumbar region (principal); M47.817 Spondylosis without myelopathy or radiculopathy, lumbosacral region; M51.36 Other intervertebral disc degeneration, lumbar region; M51.37 Other intervertebral disc degeneration, lumbosacral region

== ENCOUNTER 2022-04-29 20:01 | Emergency (ER) | payer MEDICARE, BC ==
[2022-04-29 20:09] VITALS: BP 161/94
--- OUTSIDE RECORDS SUMMARY | 2022-04-29 20:24 | EXTERNAL MEDICAL SUMMARY RPT | Continuity of Care Document ---
:1935 Author Organization [facility] Address [address] [place] [address] Phone Allergies No information. Encounters No information. Functional Status No information. Immunizations No information. Medications No information. Problems No information. Procedures date description facility + [facility] +0000 [facility] [phone] [facility] [phone] [facility] + [facility] Results/Labs test date author facility value unit interpret ation Result panel 1 (unknown) (no date) (unknown) (unknown) 3.0 (units unknown) (unknown) (unknown) (no date) (unknown) (unknown) 35.4 SECONDS (unkn own) Result panel 2 (unknown) (no date) (unknown) (unknown) (no value) (units (un known) unknown) (unknown) (no date) (unknown) (unknown) [address]units (unk nown) [address] unknown) (unknown) (no date) (unknown) (unknown) [place], [place] (units (unknown) [id number] unknown) (unknown) (no date) (unknown) (unknown) [facility]) (unknown) (no date) (unknown) (unknown) Signed (units (unkn own) unknown) (unknown) (no date) (unknown) (unknown) XRay Report (units (u nknown) unknown) (unknown) (no date) (unknown) (unknown) (no value) (units (un known) unknown) (unknown) (no date) (unknown) (unknown) 01/29/22 (units (unkn own) unknown) (unknown) (no date) (unknown) (unknown) Abdomen: (units (unkn own) Moderately unknown) distended loops of small bowel within the central abdomen (unknown) (no date) (unknown) (unknown) Approved by: (units ( unknown) Brady Alvarenga unknown) Jena on 01/29/2022 at 16:34 (unknown) (no date) (unknown) (unknown) Bones: No (units (un known) suspicious bony unknown) lesions. (unknown) (no date) (unknown) (unknown) COMPARISON: [place] ([place]known[place] [facility], , XR ACUTE ABDOMEN SERIES, 11/08/2021, 8:59. (unknown) (no date) (unknown) (unknown) Chest: Lungs (units (unknown) are clear. unknown) Heart size is normal. No pleural effusions. No (unknown) (no date) (unknown) (unknown) Dictated by: (units ( unknown) Carcodey Lyle, unknown) Jena on 01/29/2022 at 16:33 (unknown) (no date) (unknown) (unknown) FINDINGS: (units (unk nown) unknown) (unknown) (no date) (unknown) (unknown) IMPRESSION: (units (u nknown) Findings unknown) suggestive of small-bowel obstruction. (unknown) (no date) (unknown) (unknown) INDICATIONS: (units ( unknown) Abd Pain unknown) (unknown) (no date) (unknown) (unknown) Surgical (units (unkn own) changes and unknown) devices: Left sided pacer. Median sternotomy. (unknown) (no date) (unknown) (unknown) TECHNIQUE: (units (un known) One view chest unknown) and two views of the abdomen were acquired. (unknown) (no date) (unknown) (unknown) contours (units (unkn own) appear normal. unknown) (unknown) (no date) (unknown) (unknown) demonstrate (units (u nknown) air-fluid unknown) levels.. No suspicious calcifications. Visualized solid (unknown) (no date) (unknown) (unknown) pneumoperitone (units (unknown) um. unknown) (unknown) (no date) (unknown) (unknown) [id number] (units (unkn own) unknown) (unknown) (no date) (unknown) (unknown) Accession (units (unk nown) Number: unknown) [id number] (unknown) (no date) (unknown) (unknown) Age/Sex: 86 / (units (unknown) F Date of unknown) Service: (unknown) (no date) (unknown) (unknown) : (units (unkn own) 1935 unknown) Acct:[id number] (unknown) (no date) (unknown) (unknown) Loc: RAD (units (unkn own) unknown) (unknown) (no date) (unknown) (unknown) Ordering (units (unkn own) Provider: unknown) Brice Hook MD (unknown) (no date) (unknown) (unknown) PROCEDURE: XR (units (unknown) ACUTE ABDOMEN unknown) SERIES (unknown) (no date) (unknown) (unknown) Patient: (units (unkn own) Conchis Rodriguez unknown) MR#: [id number] (unknown) (no date) (unknown) (unknown) Procedure: XR (units (unknown) acute abdomen unknown) series (unknown) (no date) (unknown) (unknown) organ (units (unkn own) unknown) (unknown) (no date) (unknown) (unknown) which (units (unkn own) unknown) Result panel 3 (unknown) (no (unknown) (unknown) (no value) (units (unk nown) date) unknown) (unknown) (no (unknown) (unknown) (no value) (units (unk nown) date) unknown) (unknown) (no (unknown) (unknown) 02/06/22 (units (unkno wn) date) unknown) (unknown) (no (unknown) (unknown) 11:23 (units (unkno wn) date) unknown) (unknown) (no (unknown) (unknown) [place] (units ( unknown) date) [id number] unknown) (unknown) (no (unknown) (unknown) Breast cancer (units ( unknown) date) unknown) (unknown) (no (unknown) (unknown) Diabetes (units (unkno wn) date) mellitus unknown) (unknown) (no (unknown) (unknown) Draft (units (unkno wn) date) unknown) (unknown) (no (unknown) (unknown) [facility] ([facility] unknown) (unknown) (no (unknown) (unknown) Gynecology Visit (units (unknown) date) unknown) (unknown) (no (unknown) (unknown) NAUSEA/ PASSED (units (unknown) date) OUT unknown) (unknown) (no (unknown) (unknown) Stroke (units (unkno wn) date) unknown) (unknown) (no (unknown) (unknown) (no value) (units (unk nown) date) unknown) (unknown) (no (unknown) (unknown) Confirmed (units (unkn own) date) 02/06/22] unknown) (unknown) (no (unknown) (unknown) #0 01/10/18 (units (un known) date) [History unknown) Confirmed 02/06/22] (unknown) (no (unknown) (unknown) 02/06/22 (units (unkno wn) date) unknown) (unknown) (no (unknown) (unknown) 02/06/22] (units (unkn own) date) unknown) (unknown) (no (unknown) (unknown) 04/18/21 (units (unkno wn) date) [History unknown) Confirmed 02/06/22] (unknown) (no (unknown) (unknown) [id number] (units (unkno wn) date) unknown) (unknown) (no (unknown) (unknown) Age related (units (un known) date) osteoporosis unknown) (unknown) (no (unknown) (unknown) Age/Sex: 86 / F (units (unknown) date) Date of unknown) Service: (unknown) (no (unknown) (unknown) Allergies (units (unkn own) date) unknown) (unknown) (no (unknown) (unknown) Anemia (units (unkno wn) date) unknown) (unknown) (no (unknown) (unknown) Arthritis (units (unkn own) date) unknown) (unknown) (no (unknown) (unknown) Attending Dr: (units ( unknown) date) Adrienne Lyon MD unknown) (unknown) (no (unknown) (unknown) BMI 17.7 (units (un known) date) unknown) (unknown) (no (unknown) (unknown) BP 114/60 (units (u nknown) date) unknown) (unknown) (no (unknown) (unknown) Blood Pressure (units (unknown) date) Location Lt unknown) brachial (unknown) (no (unknown) (unknown) Brother (units (unkno wn) date) unknown) Diabetes mellitus (unknown) (no (unknown) (unknown) Brother (units (unkno wn) date) Heart unknown) disease (unknown) (no (unknown) (unknown) Confirmed (units (unkn own) date) 02/06/22] unknown) (unknown) (no (unknown) (unknown) : 1935 (units (unknown) date) Acct:[id number] unknown) (unknown) (no (unknown) (unknown) 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 unknown) (unknown) (no (unknown) (unknown) Documented By: (units (unknown) date) Adrienne Lyon MD unknown) 02/06/22 1122 (unknown) (no (unknown) (unknown) Estradiol pearls (units (unknown) date) 10 mcg VAGINAL unknown) 2XW 07/19/21 [History Confirmed 02/06/22] (unknown) (no (unknown) (unknown) Family History (units (unknown) date) (Reviewed unknown) 01/08/22 @ 13:14 by Adrienne Lyon MD) (unknown) (no (unknown) (unknown) Father (units (unkno wn) date) unknown) Osteoporosis (unknown) (no (unknown) (unknown) Flexhaler) 1 (units (u nknown) date) inhalation unknown) INHALATION DAILY 12/29/19 [History Confirmed 02/06/22] (unknown) (no (unknown) (unknown) Headache (units (unkno wn) date) unknown) (unknown) (no (unknown) (unknown) Height 5 ft 3 (units (unknown) date) in unknown) (unknown) (no (unknown) (unknown) History of (units (unk nown) date) carpal tunnel unknown) repair (unknown) (no (unknown) (unknown) History of sinus (units (unknown) date) surgery unknown) (unknown) (no (unknown) (unknown) History of (units (unk nown) date) spinal fusion unknown) (unknown) (no (unknown) (unknown) History of (units (unk nown) date) tonsillectomy unknown) (unknown) (no (unknown) (unknown) Intake (units (unkno wn) date) unknown) (unknown) (no (unknown) (unknown) Intake Note: (units (u nknown) date) unknown) (unknown) (no (unknown) (unknown) Last Menstural (units (unknown) date) Cycle + Details unknown) (unknown) (no (unknown) (unknown) Loc: [facility] (units (unkno wn) date) unknown) (unknown) (no (unknown) (unknown) Medical History (units (unknown) date) (Reviewed unknown) 01/08/22 @ 13:14 by Adrienne Lyon MD) (unknown) (no (unknown) (unknown) Medications (units (un known) date) unknown) (unknown) (no (unknown) (unknown) Mother (units (unkno wn) date) Heart unknown) disease (unknown) (no (unknown) (unknown) Other Menstrual (units (unknown) date) Period: unknown) Postmenopausal (unknown) (no (unknown) (unknown) PFSH (units (unkno wn) date) unknown) (unknown) (no (unknown) (unknown) Patient: (units (unkno wn) date) Conchis Rodriguez unknown) MR#: [id number] (unknown) (no (unknown) (unknown) Pessary check. (units (unknown) date) unknown) (unknown) (no (unknown) (unknown) Pessary (units (unkno wn) date) maintenance unknown) (unknown) (no (unknown) (unknown) Position (units (unkno wn) date) Sitting unknown) (unknown) (no (unknown) (unknown) Reason For Visit (units (unknown) date) unknown) (unknown) (no (unknown) (unknown) Regular) 2 ea PO (units (unknown) date) DAILY #0 01/10/18 unknown) [History Confirmed 02/06/22] (unknown) (no (unknown) (unknown) Signed By: (units (unk nown) date) unknown) (unknown) (no (unknown) (unknown) Smoking Status: (units (unknown) date) Never smoker unknown) (unknown) (no (unknown) (unknown) Social History (units (unknown) date) unknown) (unknown) (no (unknown) (unknown) Status post (units (un known) date) epidural steroid unknown) injection (04/15/18) (unknown) (no (unknown) (unknown) Surgical History (units (unknown) date) (Reviewed unknown) 01/08/22 @ 13:14 by Adrienne Lyon MD) (unknown) (no (unknown) (unknown) This note may (units ( unknown) date) have been all or unknown) partially generated using voice recognition (unknown) (no (unknown) (unknown) Tobacco + (units (unkn own) date) Substance Use unknown) (unknown) (no (unknown) (unknown) Tobacco Status (units (unknown) date) unknown) (unknown) (no (unknown) (unknown) Vaginal prolapse (units (unknown) date) unknown) (unknown) (no (unknown) (unknown) Visit Reasons: (units (unknown) date) Pessary f/u 1 unknown) month (unknown) (no (unknown) (unknown) Vitals (units (unkno wn) date) unknown) (unknown) (no (unknown) (unknown) Weight 100 lb (units (unknown) date) 5 oz unknown) (unknown) (no (unknown) (unknown) [History (units (unkno wn) date) Confirmed unknown) 02/06/22] (unknown) (no (unknown) (unknown) alcohol intake: (units (unknown) date) never unknown) (unknown) (no (unknown) (unknown) ascorbic acid (units ( unknown) date) (vitamin C) 500 unknown) mg tablet 500 mg PO QDAY #0 01/10/18 [History (unknown) (no (unknown) (unknown) aspirin 81 mg (units ( unknown) date) tablet,delayed unknown) release (Adult Aspirin Regimen) 81 mg PO DAILY (unknown) (no (unknown) (unknown) atorvastatin 40 (units (unknown) date) mg tablet 40 mg unknown) PO DAILY 11/06/21 [History Confirmed 02/06/22] (unknown) (no (unknown) (unknown) budesonide 180 (units (unknown) date) mcg/actuation unknown) breath activated powder inhaler (Pulmicort (unknown) (no (unknown) (unknown) calcium citrate (units (unknown) date) 250 mg unknown) calcium-vitamin D3 5 mcg (200 unit) tablet (Citracal (unknown) (no (unknown) (unknown) cephalexin 500 (units (unknown) date) mg capsule 500 mg unknown) PO Q6HR 11/06/21 [History Confirmed 02/06/22] (unknown) (no (unknown) (unknown) cyanocobalamin (units (unknown) date) (vitamin B-12) unknown) 500 mcg lozenges (Vitamin B-12) 500 mcg PO DAILY (unknown) (no (unknown) (unknown) docusate sodium (units (unknown) date) 100 mg tablet 100 unknown) mg PO BID #30 tab 11/09/21 [Rx Confirmed (unknown) (no (unknown) (unknown) have occurred. (units (unknown) date) If there are any unknown) questions, please contact the Medical Records (unknown) (no (unknown) (unknown) household (units (unkn own) date) members: spouse unknown) (unknown) (no (unknown) (unknown) magnesium oxide (units (unknown) date) 400 mg PO DAILY unknown) #0 01/10/18 [History Confirmed 02/06/22] (unknown) (no (unknown) (unknown) may occur. (units (unk nown) date) Occasional unknown) wrong-word or 'sound-alike' substitutions may have (unknown) (no (unknown) (unknown) metoprolol (units (unkn own) date) succinate 25 mg unknown) tablet,extended release 24 hr 25 mg PO DAILY 12/29/19 (unknown) (no (unknown) (unknown) multivitamin (units (u nknown) date) (Multiple unknown) Vitamins) 1 tab PO QDAY #0 01/10/18 [History Confirmed (unknown) (no (unknown) (unknown) occurred due to (units (unknown) date) the inherent unknown) limitations of voice recognition software. Please (unknown) (no (unknown) (unknown) omeprazole 20 mg (units (unknown) date) capsule,delayed unknown) release 20 mg PO QDAY@0600 #0 01/10/18 [History (unknown) (no (unknown) (unknown) pramipexole (units (un known) date) [From MIRAPEX] unknown) Allergy (Severe, Verified 02/06/22 11:23) (unknown) (no (unknown) (unknown) read the note (units ( unknown) date) carefully and unknown) recognize, using context, where these substitutions (unknown) (no (unknown) (unknown) software. (units (unkn own) date) Although every unknown) effort is made to edit content, compensation intern errors (unknown) (no (unknown) (unknown) tramadol 50 mg (units (unknown) date) tablet 50 mg PO unknown) ONCE 03/13/18 [History Confirmed 02/06/22] (unknown) (no (unknown) (unknown) warfarin 3 mg (units ( unknown) date) tablet 3 mg PO unknown) DAILY 02/12/19 [History Confirmed 02/06/22] Result panel 4 (unknown) (no (unknown) (unknown) (no value) (units (unk nown) date) unknown) (unknown) (no (unknown) (unknown) (no value) (units (unk nown) date) unknown) (unknown) (no (unknown) (unknown) 02/06/22 (units (unkno wn) date) unknown) (unknown) (no (unknown) (unknown) 11:23 (units (unkno wn) date) unknown) (unknown) (no (unknown) (unknown) [place] (units ( unknown) date) [id number] unknown) (unknown) (no (unknown) (unknown) Breast cancer (units ( unknown) date) unknown) (unknown) (no (unknown) (unknown) Diabetes (units (unkno wn) date) mellitus unknown) (unknown) (no (unknown) (unknown) Draft (units (unkno wn) date) unknown) (unknown) (no (unknown) (unknown) [facility] ([facility] ([facility] date[facility] unknown) (unknown) (no (unknown) (unknown) Gynecology Visit (units (unknown) date) unknown) (unknown) (no (unknown) (unknown) NAUSEA/ PASSED (units (unknown) date) OUT unknown) (unknown) (no (unknown) (unknown) Stroke (units (unkno wn) date) unknown) (unknown) (no (unknown) (unknown) (no value) (units (unk nown) date) unknown) (unknown) (no (unknown) (unknown) Confirmed (units (unkn own) date) 02/06/22] unknown) (unknown) (no (unknown) (unknown) #0 01/10/18 (units (un known) date) [History unknown) Confirmed 02/06/22] (unknown) (no (unknown) (unknown) 02/06/22 (units (unkno wn) date) unknown) (unknown) (no (unknown) (unknown) 02/06/22] (units (unkn own) date) unknown) (unknown) (no (unknown) (unknown) 04/18/21 (units (unkno wn) date) [History unknown) Confirmed 02/06/22] (unknown) (no (unknown) (unknown) [id number] (units (unkno wn) date) unknown) (unknown) (no (unknown) (unknown) Age related (units (un known) date) osteoporosis unknown) (unknown) (no (unknown) (unknown) Age/Sex: 86 / F (units (unknown) date) Date of unknown) Service: (unknown) (no (unknown) (unknown) Allergies (units (unkn own) date) unknown) (unknown) (no (unknown) (unknown) Anemia (units (unkno wn) date) unknown) (unknown) (no (unknown) (unknown) Arthritis (units (unkn own) date) unknown) (unknown) (no (unknown) (unknown) Attending Dr: (units ( unknown) date) Adrienne Lyon MD unknown) (unknown) (no (unknown) (unknown) BMI 17.7 (units (un known) date) unknown) (unknown) (no (unknown) (unknown) BP 114/60 (units (u nknown) date) unknown) (unknown) (no (unknown) (unknown) Blood Pressure (units (unknown) date) Location Lt unknown) brachial (unknown) (no (unknown) (unknown) Brother (units (unkno wn) date) unknown) Diabetes mellitus (unknown) (no (unknown) (unknown) Brother (units (unkno wn) date) Heart unknown) disease (unknown) (no (unknown) (unknown) Chief Complaint (units (unknown) date) unknown) (unknown) (no (unknown) (unknown) Chief Complaint: (units (unknown) date) pesary check unknown) (unknown) (no (unknown) (unknown) Confirmed (units (unkn own) date) 02/06/22] unknown) (unknown) (no (unknown) (unknown) Const (units (unkno wn) date) unknown) (unknown) (no (unknown) (unknown) : 1935 (units (unknown) date) Acct:[id number] unknown) (unknown) (no (unknown) (unknown) 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 unknown) (unknown) (no (unknown) (unknown) Details: (units (unkno wn) date) unknown) (unknown) (no (unknown) (unknown) Documented By: (units (unknown) date) Adrienne Lyon MD unknown) 02/06/22 1122 (unknown) (no (unknown) (unknown) Estradiol pearls (units (unknown) date) 10 mcg VAGINAL unknown) 2XW 07/19/21 [History Confirmed 02/06/22] (unknown) (no (unknown) (unknown) Exam (units (unkno wn) date) unknown) (unknown) (no (unknown) (unknown) Exam limited as (units (unknown) date) patient unable to unknown) recline past 45 degree angle. Size 3 ring (unknown) (no (unknown) (unknown) External Female (units (unknown) date) Exam: normal unknown) external appearance (unknown) (no (unknown) (unknown) Family History (units (unknown) date) (Reviewed unknown) 02/06/22 @ 11:57 by Adrienne Lyon MD) (unknown) (no (unknown) (unknown) Father (units (unkno wn) date) unknown) Osteoporosis (unknown) (no (unknown) (unknown) Flexhaler) 1 (units (u nknown) date) inhalation unknown) INHALATION DAILY 12/29/19 [History Confirmed 02/06/22] (unknown) (no (unknown) (unknown) GI (units (unkno wn) date) unknown) (unknown) (no (unknown) (unknown) (units (unkno wn) date) unknown) (unknown) (no (unknown) (unknown) Gastrointestinal (units (unknown) date) : Reports system unknown) reviewed and no additional complaints, except (unknown) (no (unknown) (unknown) General: (units (unkno wn) date) cooperative and unknown) well groomed (unknown) (no (unknown) (unknown) HPI (units (unkno wn) date) unknown) (unknown) (no (unknown) (unknown) Headache (units (unkno wn) date) unknown) (unknown) (no (unknown) (unknown) Height 5 ft 3 (units (unknown) date) in unknown) (unknown) (no (unknown) (unknown) History of (units (unk nown) date) carpal tunnel unknown) repair (unknown) (no (unknown) (unknown) History of sinus (units (unknown) date) surgery unknown) (unknown) (no (unknown) (unknown) History of (units (unk nown) date) spinal fusion unknown) (unknown) (no (unknown) (unknown) History of (units (unk nown) date) tonsillectomy unknown) (unknown) (no (unknown) (unknown) Intake (units (unkno wn) date) unknown) (unknown) (no (unknown) (unknown) Intake Note: (units (u nknown) date) unknown) (unknown) (no (unknown) (unknown) Last Menstural (units (unknown) date) Cycle + Details unknown) (unknown) (no (unknown) (unknown) Loc: [facility] (units (unkno wn) date) unknown) (unknown) (no (unknown) (unknown) Medical History (units (unknown) date) (Reviewed unknown) 02/06/22 @ 11:57 by Adrienne Lyon MD) (unknown) (no (unknown) (unknown) Medications (units (un known) date) unknown) (unknown) (no (unknown) (unknown) Mother (units (unkno wn) date) Heart unknown) disease (unknown) (no (unknown) (unknown) Other Menstrual (units (unknown) date) Period: unknown) Postmenopausal (unknown) (no (unknown) (unknown) Other: (units (unkno wn) date) unknown) (unknown) (no (unknown) (unknown) PFSH (units (unkno wn) date) unknown) (unknown) (no (unknown) (unknown) Patient: (units (unkno wn) date) Conchis Rodriguez A unknown) MR#: [id number] (unknown) (no (unknown) (unknown) Pessary check. (units (unknown) date) unknown) (unknown) (no (unknown) (unknown) Pessary (units (unkno wn) date) maintenance unknown) (unknown) (no (unknown) (unknown) Position (units (unkno wn) date) Sitting unknown) (unknown) (no (unknown) (unknown) ROS (units (unkno wn) date) unknown) (unknown) (no (unknown) (unknown) Reason For Visit (units (unknown) date) unknown) (unknown) (no (unknown) (unknown) Regular) 2 ea PO (units (unknown) date) DAILY #0 01/10/18 unknown) [History Confirmed 02/06/22] (unknown) (no (unknown) (unknown) Reports as per (units (unknown) date) HPI unknown) (unknown) (no (unknown) (unknown) Reports system (units (unknown) date) reviewed and no unknown) additional complaints, except as documented (unknown) (no (unknown) (unknown) Signed By: (units (unk nown) date) unknown) (unknown) (no (unknown) (unknown) Smoking Status: (units (unknown) date) Never smoker unknown) (unknown) (no (unknown) (unknown) Social History (units (unknown) date) unknown) (unknown) (no (unknown) (unknown) Status post (units (un known) date) epidural steroid unknown) injection (04/15/18) (unknown) (no (unknown) (unknown) Surgical History (units (unknown) date) (Reviewed unknown) 02/06/22 @ 11:57 by Adrienne Lyon MD) (unknown) (no (unknown) (unknown) This note may (units ( unknown) date) have been all or unknown) partially generated using voice recognition (unknown) (no (unknown) (unknown) This patient is (units (unknown) date) an 86yo unknown) presenting for a pessary check. The patient's pessary (unknown) (no (unknown) (unknown) Tobacco + (units (unkn own) date) Substance Use unknown) (unknown) (no (unknown) (unknown) Tobacco Status (units (unknown) date) unknown) (unknown) (no (unknown) (unknown) Vaginal prolapse (units (unknown) date) unknown) (unknown) (no (unknown) (unknown) Visit Reasons: (units (unknown) date) Pessary f/u 1 unknown) month (unknown) (no (unknown) (unknown) Vitals (units (unkno wn) date) unknown) (unknown) (no (unknown) (unknown) Weight 100 lb (units (unknown) date) 5 oz unknown) (unknown) (no (unknown) (unknown) [History (units (unkno wn) date) Confirmed unknown) 02/06/22] (unknown) (no (unknown) (unknown) alcohol intake: (units (unknown) date) never unknown) (unknown) (no (unknown) (unknown) as documented (units ( unknown) date) unknown) (unknown) (no (unknown) (unknown) ascorbic acid (units ( unknown) date) (vitamin C) 500 unknown) mg tablet 500 mg PO QDAY #0 01/10/18 [History (unknown) (no (unknown) (unknown) aspirin 81 mg (units ( unknown) date) tablet,delayed unknown) release (Adult Aspirin Regimen) 81 mg PO DAILY (unknown) (no (unknown) (unknown) atorvastatin 40 (units (unknown) date) mg tablet 40 mg unknown) PO DAILY 11/06/21 [History Confirmed 02/06/22] (unknown) (no (unknown) (unknown) bleeding since (units (unknown) date) her last visit. unknown) (unknown) (no (unknown) (unknown) budesonide 180 (units (unknown) date) mcg/actuation unknown) breath activated powder inhaler (Pulmicort (unknown) (no (unknown) (unknown) calcium citrate (units (unknown) date) 250 mg unknown) calcium-vitamin D3 5 mcg (200 unit) tablet (Citracal (unknown) (no (unknown) (unknown) cephalexin 500 (units (unknown) date) mg capsule 500 mg unknown) PO Q6HR 11/06/21 [History Confirmed 02/06/22] (unknown) (no (unknown) (unknown) cyanocobalamin (units (unknown) date) (vitamin B-12) unknown) 500 mcg lozenges (Vitamin B-12) 500 mcg PO DAILY (unknown) (no (unknown) (unknown) docusate sodium (units (unknown) date) 100 mg tablet 100 unknown) mg PO BID #30 tab 11/09/21 [Rx Confirmed (unknown) (no (unknown) (unknown) have occurred. (units (unknown) date) If there are any unknown) questions, please contact the Medical Records (unknown) (no (unknown) (unknown) household (units (unkn own) date) members: spouse unknown) (unknown) (no (unknown) (unknown) magnesium oxide (units (unknown) date) 400 mg PO DAILY unknown) #0 01/10/18 [History Confirmed 02/06/22] (unknown) (no (unknown) (unknown) may occur. (units (unk nown) date) Occasional unknown) wrong-word or 'sound-alike' substitutions may have (unknown) (no (unknown) (unknown) metoprolol (units (unkn own) date) succinate 25 mg unknown) tablet,extended release 24 hr 25 mg PO DAILY 12/29/19 (unknown) (no (unknown) (unknown) mobility, and (units (u nknown) date) uses estrogen unknown) perls but not cream. She has not noticed any further (unknown) (no (unknown) (unknown) multivitamin (units (u nknown) date) (Multiple unknown) Vitamins) 1 tab PO QDAY #0 01/10/18 [History Confirmed (unknown) (no (unknown) (unknown) occurred due to (units (unknown) date) the inherent unknown) limitations of voice recognition software. Please (unknown) (no (unknown) (unknown) omeprazole 20 mg (units (unknown) date) capsule,delayed unknown) release 20 mg PO QDAY@0600 #0 01/10/18 [History (unknown) (no (unknown) (unknown) pessary removed, (units (unknown) date) cleaned and unknown) replaced. Vaginal erosions improved, though still (unknown) (no (unknown) (unknown) pramipexole (units (un known) date) [From MIRAPEX] unknown) Allergy (Severe, Verified 02/06/22 11:23) (unknown) (no (unknown) (unknown) read the note (units ( unknown) date) carefully and unknown) recognize, using context, where these substitutions (unknown) (no (unknown) (unknown) scan bleeding (units ( unknown) date) unknown) (unknown) (no (unknown) (unknown) software. (units (unkn own) date) Although every unknown) effort is made to edit content, compensation intern errors (unknown) (no (unknown) (unknown) to void. She has (units (unknown) date) had several unknown) fractures in her back and ?hips limiting her (unknown) (no (unknown) (unknown) tramadol 50 mg (units (unknown) date) tablet 50 mg PO unknown) ONCE 03/13/18 [History Confirmed 02/06/22] (unknown) (no (unknown) (unknown) warfarin 3 mg (units ( unknown) date) tablet 3 mg PO unknown) DAILY 02/12/19 [History Confirmed 02/06/22] (unknown) (no (unknown) (unknown) was removed (units (un known) date) briefly due to unknown) vaginal erosions, but was replaced due to inability Result panel 5 (unknown) (no (unknown) (unknown) (no value) (units (unk nown) date) unknown) (unknown) (no (unknown) (unknown) Status: Acute (units ( unknown) date) unknown) (unknown) (no (unknown) (unknown) (no value) (units (unk nown) date) unknown) (unknown) (no (unknown) (unknown) 02/06/22 (units (unkno wn) date) unknown) (unknown) (no (unknown) (unknown) 11:23 (units (unkno wn) date) unknown) (unknown) (no (unknown) (unknown) [place], [place] (units ( unknown) date) [id number] unknown) (unknown) (no (unknown) (unknown) Breast cancer (units ( unknown) date) unknown) (unknown) (no (unknown) (unknown) Diabetes (units (unkno wn) date) mellitus unknown) (unknown) (no (unknown) (unknown) Draft (units (unkno wn) date) unknown) (unknown) (no (unknown) (unknown) [facility]) (unknown) (no (unknown) (unknown) Gynecology Visit (units (unknown) date) unknown) (unknown) (no (unknown) (unknown) NAUSEA/ PASSED (units (unknown) date) OUT unknown) (unknown) (no (unknown) (unknown) Stroke (units (unkno wn) date) unknown) (unknown) (no (unknown) (unknown) (no value) (units (unk nown) date) unknown) (unknown) (no (unknown) (unknown) Confirmed (units (unkn own) date) 02/06/22] unknown) (unknown) (no (unknown) (unknown) #0 01/10/18 (units (un known) date) [History unknown) Confirmed 02/06/22] (unknown) (no (unknown) (unknown) (1) Pessary (units (un known) date) maintenance: unknown) (unknown) (no (unknown) (unknown) 02/06/22 (units (unkno wn) date) unknown) (unknown) (no (unknown) (unknown) 02/06/22] (units (unkn own) date) unknown) (unknown) (no (unknown) (unknown) 04/18/21 (units (unkno wn) date) [History unknown) Confirmed 02/06/22] (unknown) (no (unknown) (unknown) [id number] (units (unkno wn) date) unknown) (unknown) (no (unknown) (unknown) Age related (units (un known) date) osteoporosis unknown) (unknown) (no (unknown) (unknown) Age/Sex: 86 / F (units (unknown) date) Date of unknown) Service: (unknown) (no (unknown) (unknown) Allergies (units (unkn own) date) unknown) (unknown) (no (unknown) (unknown) Anemia (units (unkno wn) date) unknown) (unknown) (no (unknown) (unknown) Arthritis (units (unkn own) date) unknown) (unknown) (no (unknown) (unknown) Assessment + (units (u nknown) date) Plan unknown) (unknown) (no (unknown) (unknown) Attending Dr: (units ( unknown) date) Adrienne Lyon MD unknown) (unknown) (no (unknown) (unknown) BMI 17.7 (units (un known) date) unknown) (unknown) (no (unknown) (unknown) BP 114/60 (units (u nknown) date) unknown) (unknown) (no (unknown) (unknown) Blood Pressure (units (unknown) date) Location Lt unknown) brachial (unknown) (no (unknown) (unknown) Brother (units (unkno wn) date) unknown) Diabetes mellitus (unknown) (no (unknown) (unknown) Brother (units (unkno wn) date) Heart unknown) disease (unknown) (no (unknown) (unknown) Chief Complaint (units (unknown) date) unknown) (unknown) (no (unknown) (unknown) Chief Complaint: (units (unknown) date) pesary check unknown) (unknown) (no (unknown) (unknown) Confirmed (units (unkn own) date) 02/06/22] unknown) (unknown) (no (unknown) (unknown) Const (units (unkno wn) date) unknown) (unknown) (no (unknown) (unknown) : 1935 (units (unknown) date) Acct:[id number] unknown) (unknown) (no (unknown) (unknown) 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 unknown) (unknown) (no (unknown) (unknown) Details: (units (unkno wn) date) unknown) (unknown) (no (unknown) (unknown) Documented By: (units (unknown) date) Adrienne Lyon MD unknown) 02/06/22 1122 (unknown) (no (unknown) (unknown) Estradiol pearls (units (unknown) date) 10 mcg VAGINAL unknown) 2XW 07/19/21 [History Confirmed 02/06/22] (unknown) (no (unknown) (unknown) Exam (units (unkno wn) date) unknown) (unknown) (no (unknown) (unknown) Exam limited as (units (unknown) date) patient unable to unknown) recline past 45 degree angle. Size 3 ring (unknown) (no (unknown) (unknown) External Female (units (unknown) date) Exam: normal unknown) external appearance (unknown) (no (unknown) (unknown) Family History (units (unknown) date) (Reviewed unknown) 02/06/22 @ 11:57 by Adrienne Lyon MD) (unknown) (no (unknown) (unknown) Father (units (unkno wn) date) unknown) Osteoporosis (unknown) (no (unknown) (unknown) Flexhaler) 1 (units (u nknown) date) inhalation unknown) INHALATION DAILY 12/29/19 [History Confirmed 02/06/22] (unknown) (no (unknown) (unknown) GI (units (unkno wn) date) unknown) (unknown) (no (unknown) (unknown) (units (unkno wn) date) unknown) (unknown) (no (unknown) (unknown) Gastrointestinal (units (unknown) date) : Reports system unknown) reviewed and no additional complaints, except (unknown) (no (unknown) (unknown) General: (units (unkno wn) date) cooperative and unknown) well groomed (unknown) (no (unknown) (unknown) HPI (units (unkno wn) date) unknown) (unknown) (no (unknown) (unknown) Headache (units (unkno wn) date) unknown) (unknown) (no (unknown) (unknown) Height 5 ft 3 (units (unknown) date) in unknown) (unknown) (no (unknown) (unknown) History of (units (unk nown) date) carpal tunnel unknown) repair (unknown) (no (unknown) (unknown) History of sinus (units (unknown) date) surgery unknown) (unknown) (no (unknown) (unknown) History of (units (unk nown) date) spinal fusion unknown) (unknown) (no (unknown) (unknown) History of (units (unk nown) date) tonsillectomy unknown) (unknown) (no (unknown) (unknown) Intake (units (unkno wn) date) unknown) (unknown) (no (unknown) (unknown) Intake Note: (units (u nknown) date) unknown) (unknown) (no (unknown) (unknown) Last Menstural (units (unknown) date) Cycle + Details unknown) (unknown) (no (unknown) (unknown) Loc: [facility] (units (unkno wn) date) unknown) (unknown) (no (unknown) (unknown) Medical History (units (unknown) date) (Reviewed unknown) 02/06/22 @ 11:57 by Adrienne Lyon MD) (unknown) (no (unknown) (unknown) Medications (units (un known) date) unknown) (unknown) (no (unknown) (unknown) Mother (units (unkno wn) date) Heart unknown) disease (unknown) (no (unknown) (unknown) Other Menstrual (units (unknown) date) Period: unknown) Postmenopausal (unknown) (no (unknown) (unknown) Other: (units (unkno wn) date) unknown) (unknown) (no (unknown) (unknown) PFSH (units (unkno wn) date) unknown) (unknown) (no (unknown) (unknown) Patient: (units (unkno wn) date) Conchis Rodriguez unknown) MR#: [id number] (unknown) (no (unknown) (unknown) Pessary check. (units (unknown) date) unknown) (unknown) (no (unknown) (unknown) Pessary (units (unkno wn) date) maintenance unknown) (unknown) (no (unknown) (unknown) Position (units (unkno wn) date) Sitting unknown) (unknown) (no (unknown) (unknown) ROS (units (unkno wn) date) unknown) (unknown) (no (unknown) (unknown) Reason For Visit (units (unknown) date) unknown) (unknown) (no (unknown) (unknown) Regular) 2 ea PO (units (unknown) date) DAILY #0 01/10/18 unknown) [History Confirmed 02/06/22] (unknown) (no (unknown) (unknown) Reports as per (units (unknown) date) HPI unknown) (unknown) (no (unknown) (unknown) Reports system (units (unknown) date) reviewed and no unknown) additional complaints, except as documented (unknown) (no (unknown) (unknown) Signed By: (units (unk nown) date) unknown) (unknown) (no (unknown) (unknown) Smoking Status: (units (unknown) date) Never smoker unknown) (unknown) (no (unknown) (unknown) Social History (units (unknown) date) unknown) (unknown) (no (unknown) (unknown) Status post (units (un known) date) epidural steroid unknown) injection (04/15/18) (unknown) (no (unknown) (unknown) Surgical History (units (unknown) date) (Reviewed unknown) 02/06/22 @ 11:57 by Adrienne Lyon MD) (unknown) (no (unknown) (unknown) This note may (units ( unknown) date) have been all or unknown) partially generated using voice recognition (unknown) (no (unknown) (unknown) This patient is (units (unknown) date) an 86yo unknown) presenting for a pessary check. The patient's pessary (unknown) (no (unknown) (unknown) Tobacco + (units (unkn own) date) Substance Use unknown) (unknown) (no (unknown) (unknown) Tobacco Status (units (unknown) date) unknown) (unknown) (no (unknown) (unknown) Vaginal prolapse (units (unknown) date) unknown) (unknown) (no (unknown) (unknown) Visit Reasons: (units (unknown) date) Pessary f/u 1 unknown) month (unknown) (no (unknown) (unknown) Vitals (units (unkno wn) date) unknown) (unknown) (no (unknown) (unknown) Weight 100 lb (units (unknown) date) 5 oz unknown) (unknown) (no (unknown) (unknown) [History (units (unkno wn) date) Confirmed unknown) 02/06/22] (unknown) (no (unknown) (unknown) alcohol intake: (units (unknown) date) never unknown) (unknown) (no (unknown) (unknown) as documented (units ( unknown) date) unknown) (unknown) (no (unknown) (unknown) ascorbic acid (units ( unknown) date) (vitamin C) 500 unknown) mg tablet 500 mg PO QDAY #0 01/10/18 [History (unknown) (no (unknown) (unknown) aspirin 81 mg (units ( unknown) date) tablet,delayed unknown) release (Adult Aspirin Regimen) 81 mg PO DAILY (unknown) (no (unknown) (unknown) atorvastatin 40 (units (unknown) date) mg tablet 40 mg unknown) PO DAILY 11/06/21 [History Confirmed 02/06/22] (unknown) (no (unknown) (unknown) bleeding since (units (unknown) date) her last visit. unknown) (unknown) (no (unknown) (unknown) budesonide 180 (units (unknown) date) mcg/actuation unknown) breath activated powder inhaler (Pulmicort (unknown) (no (unknown) (unknown) calcium citrate (units (unknown) date) 250 mg unknown) calcium-vitamin D3 5 mcg (200 unit) tablet (Citracal (unknown) (no (unknown) (unknown) cephalexin 500 (units (unknown) date) mg capsule 500 mg unknown) PO Q6HR 11/06/21 [History Confirmed 02/06/22] (unknown) (no (unknown) (unknown) cervix or (units (unkn own) date) establish if any unknown) uterine component to the bleeding. (unknown) (no (unknown) (unknown) cyanocobalamin (units (unknown) date) (vitamin B-12) unknown) 500 mcg lozenges (Vitamin B-12) 500 mcg PO DAILY (unknown) (no (unknown) (unknown) docusate sodium (units (unknown) date) 100 mg tablet 100 unknown) mg PO BID #30 tab 11/09/21 [Rx Confirmed (unknown) (no (unknown) (unknown) have occurred. (units (unknown) date) If there are any unknown) questions, please contact the Medical Records (unknown) (no (unknown) (unknown) household (units (unkn own) date) members: spouse unknown) (unknown) (no (unknown) (unknown) magnesium oxide (units (unknown) date) 400 mg PO DAILY unknown) #0 01/10/18 [History Confirmed 02/06/22] (unknown) (no (unknown) (unknown) may occur. (units (unk nown) date) Occasional unknown) wrong-word or 'sound-alike' substitutions may have (unknown) (no (unknown) (unknown) metoprolol (units (unkn own) date) succinate 25 mg unknown) tablet,extended release 24 hr 25 mg PO DAILY 12/29/19 (unknown) (no (unknown) (unknown) mobility, and (units (u nknown) date) uses estrogen unknown) perls but not cream. She has not noticed any further (unknown) (no (unknown) (unknown) multivitamin (units (u nknown) date) (Multiple unknown) Vitamins) 1 tab PO QDAY #0 01/10/18 [History Confirmed (unknown) (no (unknown) (unknown) occurred due to (units (unknown) date) the inherent unknown) limitations of voice recognition software. Please (unknown) (no (unknown) (unknown) omeprazole 20 mg (units (unknown) date) capsule,delayed unknown) release 20 mg PO QDAY@0600 #0 01/10/18 [History (unknown) (no (unknown) (unknown) pessary removed, (units (unknown) date) cleaned and unknown) replaced. Vaginal erosions improved, though still (unknown) (no (unknown) (unknown) pramipexole (units (un known) date) [From MIRAPEX] unknown) Allergy (Severe, Verified 02/06/22 11:23) (unknown) (no (unknown) (unknown) read the note (units ( unknown) date) carefully and unknown) recognize, using context, where these substitutions (unknown) (no (unknown) (unknown) scant bleeding (units (unknown) date) noted. Due to unknown) prolapse and positioning, unable to visualize (unknown) (no (unknown) (unknown) software. (units (unkn own) date) Although every unknown) effort is made to edit content, compensation intern errors (unknown) (no (unknown) (unknown) to void. She has (units (unknown) date) had several unknown) fractures in her back and ?hips limiting her (unknown) (no (unknown) (unknown) tramadol 50 mg (units (unknown) date) tablet 50 mg PO unknown) ONCE 03/13/18 [History Confirmed 02/06/22] (unknown) (no (unknown) (unknown) warfarin 3 mg (units ( unknown) date) tablet 3 mg PO unknown) DAILY 02/12/19 [History Confirmed 02/06/22] (unknown) (no (unknown) (unknown) was removed (units (un known) date) briefly due to unknown) vaginal erosions, but was replaced due to inability Result panel 6 (unknown) (no (unknown) (unknown) (no value) (units (unk nown) date) unknown) (unknown) (no (unknown) (unknown) Assessment and (units (unknown) date) Plan: unknown) (unknown) (no (unknown) (unknown) Status: Acute (units ( unknown) date) unknown) (unknown) (no (unknown) (unknown) (no value) (units (unk nown) date) unknown) (unknown) (no (unknown) (unknown) 02/06/22 (units (unkno wn) date) unknown) (unknown) (no (unknown) (unknown) 02/06/22 1210 (units ( unknown) date) unknown) (unknown) (no (unknown) (unknown) 11:23 (units (unkno wn) date) unknown) (unknown) (no (unknown) (unknown) [place], [place] (units ( unknown) date) [id number] unknown) (unknown) (no (unknown) (unknown) Breast cancer (units ( unknown) date) unknown) (unknown) (no (unknown) (unknown) Diabetes (units (unkno wn) date) mellitus unknown) (unknown) (no (unknown) (unknown) [facility] ([facility]) (unknown) (no (unknown) (unknown) Gynecology Visit (units (unknown) date) unknown) (unknown) (no (unknown) (unknown) NAUSEA/ PASSED (units (unknown) date) OUT unknown) (unknown) (no (unknown) (unknown) Signed (units (unkno wn) date) unknown) (unknown) (no (unknown) (unknown) Stroke (units (unkno wn) date) unknown) (unknown) (no (unknown) (unknown) (no value) (units (unk nown) date) unknown) (unknown) (no (unknown) (unknown) Confirmed (units (unkn own) date) 02/06/22] unknown) (unknown) (no (unknown) (unknown) #0 01/10/18 (units (un known) date) [History unknown) Confirmed 02/06/22] (unknown) (no (unknown) (unknown) (1) Pessary (units (un known) date) maintenance: unknown) (unknown) (no (unknown) (unknown) 02/06/22 (units (unkno wn) date) unknown) (unknown) (no (unknown) (unknown) 02/06/22] (units (unkn own) date) unknown) (unknown) (no (unknown) (unknown) 04/18/21 (units (unkno wn) date) [History unknown) Confirmed 02/06/22] (unknown) (no (unknown) (unknown) [id number] (units (unkno wn) date) unknown) (unknown) (no (unknown) (unknown) Age related (units (un known) date) osteoporosis unknown) (unknown) (no (unknown) (unknown) Age/Sex: 86 / F (units (unknown) date) Date of unknown) Service: (unknown) (no (unknown) (unknown) Allergies (units (unkn own) date) unknown) (unknown) (no (unknown) (unknown) Anemia (units (unkno wn) date) unknown) (unknown) (no (unknown) (unknown) Arthritis (units (unkn own) date) unknown) (unknown) (no (unknown) (unknown) Assessment + (units (u nknown) date) Plan unknown) (unknown) (no (unknown) (unknown) Attending Dr: (units ( unknown) date) Adrienne Lyon MD unknown) (unknown) (no (unknown) (unknown) BMI 17.7 (units (un known) date) unknown) (unknown) (no (unknown) (unknown) BP 114/60 (units (u nknown) date) unknown) (unknown) (no (unknown) (unknown) Blood Pressure (units (unknown) date) Location Lt unknown) brachial (unknown) (no (unknown) (unknown) Brother (units (unkno wn) date) unknown) Diabetes mellitus (unknown) (no (unknown) (unknown) Brother (units (unkno wn) date) Heart unknown) disease (unknown) (no (unknown) (unknown) Chief Complaint (units (unknown) date) unknown) (unknown) (no (unknown) (unknown) Chief Complaint: (units (unknown) date) pesary check unknown) (unknown) (no (unknown) (unknown) Confirmed (units (unkn own) date) 02/06/22] unknown) (unknown) (no (unknown) (unknown) Const (units (unkno wn) date) unknown) (unknown) (no (unknown) (unknown) : 1935 (units (unknown) date) Acct:[id number] unknown) (unknown) (no (unknown) (unknown) 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 unknown) (unknown) (no (unknown) (unknown) Details: (units (unkno wn) date) unknown) (unknown) (no (unknown) (unknown) Documented By: (units (unknown) date) Adrienne Lyon MD unknown) 02/06/22 1122 (unknown) (no (unknown) (unknown) Estradiol pearls (units (unknown) date) 10 mcg VAGINAL unknown) 2XW 07/19/21 [History Confirmed 02/06/22] (unknown) (no (unknown) (unknown) Exam (units (unkno wn) date) unknown) (unknown) (no (unknown) (unknown) Exam limited as (units (unknown) date) patient unable to unknown) recline past 45 degree angle. Size 3 ring (unknown) (no (unknown) (unknown) External Female (units (unknown) date) Exam: normal unknown) external appearance (unknown) (no (unknown) (unknown) Family History (units (unknown) date) (Reviewed unknown) 02/06/22 @ 11:57 by Adrienne Lyon MD) (unknown) (no (unknown) (unknown) Father (units (unkno wn) date) unknown) Osteoporosis (unknown) (no (unknown) (unknown) Flexhaler) 1 (units (u nknown) date) inhalation unknown) INHALATION DAILY 12/29/19 [History Confirmed 02/06/22] (unknown) (no (unknown) (unknown) GI (units (unkno wn) date) unknown) (unknown) (no (unknown) (unknown) (units (unkno wn) date) unknown) (unknown) (no (unknown) (unknown) Gastrointestinal (units (unknown) date) : Reports system unknown) reviewed and no additional complaints, except (unknown) (no (unknown) (unknown) General: (units (unkno wn) date) cooperative and unknown) well groomed (unknown) (no (unknown) (unknown) HPI (units (unkno wn) date) unknown) (unknown) (no (unknown) (unknown) Headache (units (unkno wn) date) unknown) (unknown) (no (unknown) (unknown) Height 5 ft 3 (units (unknown) date) in unknown) (unknown) (no (unknown) (unknown) History of (units (unk nown) date) carpal tunnel unknown) repair (unknown) (no (unknown) (unknown) History of sinus (units (unknown) date) surgery unknown) (unknown) (no (unknown) (unknown) History of (units (unk nown) date) spinal fusion unknown) (unknown) (no (unknown) (unknown) History of (units (unk nown) date) tonsillectomy unknown) (unknown) (no (unknown) (unknown) Intake (units (unkno wn) date) unknown) (unknown) (no (unknown) (unknown) Intake Note: (units (u nknown) date) unknown) (unknown) (no (unknown) (unknown) Last Menstural (units (unknown) date) Cycle + Details unknown) (unknown) (no (unknown) (unknown) Loc: [facility] (units (unkno wn) date) unknown) (unknown) (no (unknown) (unknown) Medical History (units (unknown) date) (Reviewed unknown) 02/06/22 @ 11:57 by Adrienne Lyon MD) (unknown) (no (unknown) (unknown) Medications (units (un known) date) unknown) (unknown) (no (unknown) (unknown) Mother (units (unkno wn) date) Heart unknown) disease (unknown) (no (unknown) (unknown) Other Menstrual (units (unknown) date) Period: unknown) Postmenopausal (unknown) (no (unknown) (unknown) Other: (units (unkno wn) date) unknown) (unknown) (no (unknown) (unknown) PFSH (units (unkno wn) date) unknown) (unknown) (no (unknown) (unknown) Patient: (units (unkno wn) date) Conchis Rodriguez unknown) MR#: [id number] (unknown) (no (unknown) (unknown) Pessary check. (units (unknown) date) unknown) (unknown) (no (unknown) (unknown) Pessary (units (unkno wn) date) maintenance unknown) (unknown) (no (unknown) (unknown) Position (units (unkno wn) date) Sitting unknown) (unknown) (no (unknown) (unknown) ROS (units (unkno wn) date) unknown) (unknown) (no (unknown) (unknown) Reason For Visit (units (unknown) date) unknown) (unknown) (no (unknown) (unknown) Regular) 2 ea PO (units (unknown) date) DAILY #0 01/10/18 unknown) [History Confirmed 02/06/22] (unknown) (no (unknown) (unknown) Reports as per (units (unknown) date) HPI unknown) (unknown) (no (unknown) (unknown) Reports system (units (unknown) date) reviewed and no unknown) additional complaints, except as documented (unknown) (no (unknown) (unknown) Signed By: (units (unk nown) date) <Electronically unknown) signed by Adrienne Lyon MD> (unknown) (no (unknown) (unknown) Smoking Status: (units (unknown) date) Never smoker unknown) (unknown) (no (unknown) (unknown) Social History (units (unknown) date) unknown) (unknown) (no (unknown) (unknown) Status post (units (un known) date) epidural steroid unknown) injection (04/15/18) (unknown) (no (unknown) (unknown) Surgical History (units (unknown) date) (Reviewed unknown) 02/06/22 @ 11:57 by Adrienne Lyon MD) (unknown) (no (unknown) (unknown) This note may (units ( unknown) date) have been all or unknown) partially generated using voice recognition (unknown) (no (unknown) (unknown) This patient is (units (unknown) date) an 86yo unknown) presenting for a pessary check. The patient's pessary (unknown) (no (unknown) (unknown) This patient (units (u nknown) date) presents for a unknown) pessary check. She still has scant bleeding from (unknown) (no (unknown) (unknown) Tobacco + (units (unkn own) date) Substance Use unknown) (unknown) (no (unknown) (unknown) Tobacco Status (units (unknown) date) unknown) (unknown) (no (unknown) (unknown) Vaginal prolapse (units (unknown) date) unknown) (unknown) (no (unknown) (unknown) Visit Reasons: (units (unknown) date) Pessary f/u 1 unknown) month (unknown) (no (unknown) (unknown) Vitals (units (unkno wn) date) unknown) (unknown) (no (unknown) (unknown) Weight 100 lb (units (unknown) date) 5 oz unknown) (unknown) (no (unknown) (unknown) [History (units (unkno wn) date) Confirmed unknown) 02/06/22] (unknown) (no (unknown) (unknown) alcohol intake: (units (unknown) date) never unknown) (unknown) (no (unknown) (unknown) as documented (units ( unknown) date) unknown) (unknown) (no (unknown) (unknown) ascorbic acid (units ( unknown) date) (vitamin C) 500 unknown) mg tablet 500 mg PO QDAY #0 01/10/18 [History (unknown) (no (unknown) (unknown) aspirin 81 mg (units ( unknown) date) tablet,delayed unknown) release (Adult Aspirin Regimen) 81 mg PO DAILY (unknown) (no (unknown) (unknown) atorvastatin 40 (units (unknown) date) mg tablet 40 mg unknown) PO DAILY 11/06/21 [History Confirmed 02/06/22] (unknown) (no (unknown) (unknown) bleeding since (units (unknown) date) her last visit. unknown) (unknown) (no (unknown) (unknown) budesonide 180 (units (unknown) date) mcg/actuation unknown) breath activated powder inhaler (Pulmicort (unknown) (no (unknown) (unknown) calcium citrate (units (unknown) date) 250 mg unknown) calcium-vitamin D3 5 mcg (200 unit) tablet (Citracal (unknown) (no (unknown) (unknown) cephalexin 500 (units (unknown) date) mg capsule 500 mg unknown) PO Q6HR 11/06/21 [History Confirmed 02/06/22] (unknown) (no (unknown) (unknown) cervix or (units (unkn own) date) establish if any unknown) uterine component to the bleeding. (unknown) (no (unknown) (unknown) controlled. We (units (unknown) date) discussed unknown) increasing use of her estrogen perls to every other (unknown) (no (unknown) (unknown) cyanocobalamin (units (unknown) date) (vitamin B-12) unknown) 500 mcg lozenges (Vitamin B-12) 500 mcg PO DAILY (unknown) (no (unknown) (unknown) day, and (units (unkno wn) date) returning in a unknown) month to reassess. (unknown) (no (unknown) (unknown) docusate sodium (units (unknown) date) 100 mg tablet 100 unknown) mg PO BID #30 tab 11/09/21 [Rx Confirmed (unknown) (no (unknown) (unknown) erosions, though (units (unknown) date) these appear unknown) improved. We discussed TVUS to assess for any (unknown) (no (unknown) (unknown) have occurred. (units (unknown) date) If there are any unknown) questions, please contact the Medical Records (unknown) (no (unknown) (unknown) household (units (unkn own) date) members: spouse unknown) (unknown) (no (unknown) (unknown) magnesium oxide (units (unknown) date) 400 mg PO DAILY unknown) #0 01/10/18 [History Confirmed 02/06/22] (unknown) (no (unknown) (unknown) may occur. (units (unk nown) date) Occasional unknown) wrong-word or 'sound-alike' substitutions may have (unknown) (no (unknown) (unknown) metoprolol (units (unkn own) date) succinate 25 mg unknown) tablet,extended release 24 hr 25 mg PO DAILY 12/29/19 (unknown) (no (unknown) (unknown) mobility, and (units (u nknown) date) uses estrogen unknown) perls but not cream. She has not noticed any further (unknown) (no (unknown) (unknown) multivitamin (units (u nknown) date) (Multiple unknown) Vitamins) 1 tab PO QDAY #0 01/10/18 [History Confirmed (unknown) (no (unknown) (unknown) occurred due to (units (unknown) date) the inherent unknown) limitations of voice recognition software. Please (unknown) (no (unknown) (unknown) omeprazole 20 mg (units (unknown) date) capsule,delayed unknown) release 20 mg PO QDAY@0600 #0 01/10/18 [History (unknown) (no (unknown) (unknown) pessary removed, (units (unknown) date) cleaned and unknown) replaced. Vaginal erosions improved, though still (unknown) (no (unknown) (unknown) pramipexole (units (un known) date) [From MIRAPEX] unknown) Allergy (Severe, Verified 02/06/22 11:23) (unknown) (no (unknown) (unknown) read the note (units ( unknown) date) carefully and unknown) recognize, using context, where these substitutions (unknown) (no (unknown) (unknown) scant bleeding (units (unknown) date) noted. Due to unknown) prolapse and positioning, unable to visualize (unknown) (no (unknown) (unknown) software. (units (unkn own) date) Although every unknown) effort is made to edit content, compensation intern errors (unknown) (no (unknown) (unknown) to void. She has (units (unknown) date) had several unknown) fractures in her back and ?hips limiting her (unknown) (no (unknown) (unknown) tramadol 50 mg (units (unknown) date) tablet 50 mg PO unknown) ONCE 03/13/18 [History Confirmed 02/06/22] (unknown) (no (unknown) (unknown) uterine (units (unkno wn) date) component to her unknown) bleeding, and discussed a colpocleisis. The patient (unknown) (no (unknown) (unknown) warfarin 3 mg (units ( unknown) date) tablet 3 mg PO unknown) DAILY 02/12/19 [History Confirmed 02/06/22] (unknown) (no (unknown) (unknown) was removed (units (un known) date) briefly due to unknown) vaginal erosions, but was replaced due to inability (unknown) (no (unknown) (unknown) would like to (units ( unknown) date) avoid any further unknown) tests or planning until her back pain is better Result panel 7 (unknown) (no date) (unknown) (unknown) 5.0 (units unknown) (unknown) (unknown) (no date) (unknown) (unknown) 58.3 SECONDS (unkn own) Result panel 8 (unknown) (no date) (unknown) (unknown) 2.3 (units unknown) (unknown) (unknown) (no date) (unknown) (unknown) 26.6 SECONDS (unkn own) Result panel 9 (unknown) (no date) (unknown) (unknown) 2.3 (units unknown) (unknown) (unknown) (no date) (unknown) (unknown) 26.6 SECONDS (unkn own) Result panel 10 (unknown) (no (unknown) (unknown) (no value) (units (unk nown) date) unknown) (unknown) (no (unknown) (unknown) (no value) (units (unk nown) date) unknown) (unknown) (no (unknown) (unknown) 03/15/22 (units (unkno wn) date) unknown) (unknown) (no (unknown) (unknown) 15:56 (units (unkno wn) date) unknown) (unknown) (no (unknown) (unknown) [place] (units ( unknown) date) [id number] unknown) (unknown) (no (unknown) (unknown) Breast cancer (units ( unknown) date) unknown) (unknown) (no (unknown) (unknown) Diabetes (units (unkno wn) date) mellitus unknown) (unknown) (no (unknown) (unknown) Draft (units (unkno wn) date) unknown) (unknown) (no (unknown) (unknown) [facility] ([facility] unknown) (unknown) (no (unknown) (unknown) Gynecology Visit (units (unknown) date) unknown) (unknown) (no (unknown) (unknown) NAUSEA/ PASSED (units (unknown) date) OUT unknown) (unknown) (no (unknown) (unknown) Stroke (units (unkno wn) date) unknown) (unknown) (no (unknown) (unknown) (no value) (units (unk nown) date) unknown) (unknown) (no (unknown) (unknown) 03/15/22 (units (unkno wn) date) unknown) (unknown) (no (unknown) (unknown) [id number] (units (unkno wn) date) unknown) (unknown) (no (unknown) (unknown) Age related (units (un known) date) osteoporosis unknown) (unknown) (no (unknown) (unknown) Age/Sex: 86 / F (units (unknown) date) Date of unknown) Service: (unknown) (no (unknown) (unknown) Allergies (units (unkn own) date) unknown) (unknown) (no (unknown) (unknown) Anemia (units (unkno wn) date) unknown) (unknown) (no (unknown) (unknown) Arthritis (units (unkn own) date) unknown) (unknown) (no (unknown) (unknown) Attending Dr: (units ( unknown) date) Adrienne Lyon MD unknown) (unknown) (no (unknown) (unknown) BMI 16.5 (units (un known) date) unknown) (unknown) (no (unknown) (unknown) BP 138/68 (units (u nknown) date) unknown) (unknown) (no (unknown) (unknown) Blood Pressure (units (unknown) date) Location Rt unknown) brachial (unknown) (no (unknown) (unknown) Brother (units (unkno wn) date) unknown) Diabetes mellitus (unknown) (no (unknown) (unknown) Brother (units (unkno wn) date) Heart unknown) disease (unknown) (no (unknown) (unknown) : 1935 (units (unknown) date) Acct:[id number] unknown) (unknown) (no (unknown) (unknown) 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 unknown) (unknown) (no (unknown) (unknown) Documented By: (units (unknown) date) Adrienne Lyon MD unknown) 03/15/22 1556 (unknown) (no (unknown) (unknown) Family History (units (unknown) date) (Reviewed unknown) 02/06/22 @ 11:57 by Adrienne Lyon MD) (unknown) (no (unknown) (unknown) Father (units (unkno wn) date) unknown) Osteoporosis (unknown) (no (unknown) (unknown) Headache (units (unkno wn) date) unknown) (unknown) (no (unknown) (unknown) Height 5 ft 3 (units (unknown) date) in unknown) (unknown) (no (unknown) (unknown) History of (units (unk nown) date) carpal tunnel unknown) repair (unknown) (no (unknown) (unknown) History of sinus (units (unknown) date) surgery unknown) (unknown) (no (unknown) (unknown) History of (units (unk nown) date) spinal fusion unknown) (unknown) (no (unknown) (unknown) History of (units (unk nown) date) tonsillectomy unknown) (unknown) (no (unknown) (unknown) Intake (units (unkno wn) date) unknown) (unknown) (no (unknown) (unknown) Intake Note: (units (u nknown) date) unknown) (unknown) (no (unknown) (unknown) Intake performed (units (unknown) date) by: Brooke Gaines unknown) (unknown) (no (unknown) (unknown) Intake- Clincial (units (unknown) date) Staff unknown) (unknown) (no (unknown) (unknown) Last Menstural (units (unknown) date) Cycle + Details unknown) (unknown) (no (unknown) (unknown) Loc: [facility] (units (unkno wn) date) unknown) (unknown) (no (unknown) (unknown) Medical History (units (unknown) date) (Reviewed unknown) 02/06/22 @ 11:57 by Adrienne Lyon MD) (unknown) (no (unknown) (unknown) Mother (units (unkno wn) date) Heart unknown) disease (unknown) (no (unknown) (unknown) Other Menstrual (units (unknown) date) Period: unknown) Postmenopausal (unknown) (no (unknown) (unknown) PFSH (units (unkno wn) date) unknown) (unknown) (no (unknown) (unknown) Patient: (units (unkno wn) date) Conchis Rodriguez unknown) MR#: [id number] (unknown) (no (unknown) (unknown) Pessary (units (unkno wn) date) maintenance unknown) (unknown) (no (unknown) (unknown) Position (units (unkno wn) date) Sitting unknown) (unknown) (no (unknown) (unknown) Reason For Visit (units (unknown) date) unknown) (unknown) (no (unknown) (unknown) Signed By: (units (unk nown) date) unknown) (unknown) (no (unknown) (unknown) Smoking Status: (units (unknown) date) Never smoker unknown) (unknown) (no (unknown) (unknown) Social History (units (unknown) date) unknown) (unknown) (no (unknown) (unknown) Status post (units (un known) date) epidural steroid unknown) injection (04/15/18) (unknown) (no (unknown) (unknown) Surgical History (units (unknown) date) (Reviewed unknown) 02/06/22 @ 11:57 by Adrienne Lyon MD) (unknown) (no (unknown) (unknown) This note may (units ( unknown) date) have been all or unknown) partially generated using voice recognition (unknown) (no (unknown) (unknown) Tobacco + (units (unkn own) date) Substance Use unknown) (unknown) (no (unknown) (unknown) Tobacco Status (units (unknown) date) unknown) (unknown) (no (unknown) (unknown) Vaginal prolapse (units (unknown) date) unknown) (unknown) (no (unknown) (unknown) Visit Reasons: (units (unknown) date) Pessary check unknown) (unknown) (no (unknown) (unknown) Vitals (units (unkno wn) date) unknown) (unknown) (no (unknown) (unknown) Weight 93 lb (units (unknown) date) unknown) (unknown) (no (unknown) (unknown) alcohol intake: (units (unknown) date) never unknown) (unknown) (no (unknown) (unknown) have occurred. (units (unknown) date) If there are any unknown) questions, please contact the Medical Records (unknown) (no (unknown) (unknown) household (units (unkn own) date) members: spouse unknown) (unknown) (no (unknown) (unknown) may occur. (units (unk nown) date) Occasional unknown) wrong-word or 'sound-alike' substitutions may have (unknown) (no (unknown) (unknown) occurred due to (units (unknown) date) the inherent unknown) limitations of voice recognition software. Please (unknown) (no (unknown) (unknown) pramipexole (units (un known) date) [From MIRAPEX] unknown) Allergy (Severe, Verified 02/06/22 11:23) (unknown) (no (unknown) (unknown) pt here for (units (un known) date) pessary check unknown) (unknown) (no (unknown) (unknown) read the note (units ( unknown) date) carefully and unknown) recognize, using context, where these substitutions (unknown) (no (unknown) (unknown) software. (units (unkn own) date) Although every unknown) effort is made to edit content, compensation intern errors Result panel 11 (unknown) (no date) (unknown) (unknown) 2.1 (units unknown) (unknown) (unknown) (no date) (unknown) (unknown) 24.0 SECONDS (unkn own) Result panel 12 (unknown) (no (unknown) (unknown) (no value) (units (unk nown) date) unknown) (unknown) (no (unknown) (unknown) Assessment and (units (unknown) date) Plan: unknown) (unknown) (no (unknown) (unknown) Status: Acute (units ( unknown) date) unknown) (unknown) (no (unknown) (unknown) (no value) (units (unk nown) date) unknown) (unknown) (no (unknown) (unknown) 03/15/22 (units (unkno wn) date) unknown) (unknown) (no (unknown) (unknown) 03/15/22 1718 (units ( unknown) date) unknown) (unknown) (no (unknown) (unknown) 15:56 (units (unkno wn) date) unknown) (unknown) (no (unknown) (unknown) [place] (units ( unknown) date) [id number] unknown) (unknown) (no (unknown) (unknown) Breast cancer (units ( unknown) date) unknown) (unknown) (no (unknown) (unknown) Diabetes (units (unkno wn) date) mellitus unknown) (unknown) (no (unknown) (unknown) [facility] date[facility]) (unknown) (no (unknown) (unknown) Gynecology Visit (units (unknown) date) unknown) (unknown) (no (unknown) (unknown) NAUSEA/ PASSED (units (unknown) date) OUT unknown) (unknown) (no (unknown) (unknown) Signed (units (unkno wn) date) unknown) (unknown) (no (unknown) (unknown) Stroke (units (unkno wn) date) unknown) (unknown) (no (unknown) (unknown) (no value) (units (unk nown) date) unknown) (unknown) (no (unknown) (unknown) (1) Pessary (units (un known) date) maintenance: unknown) (unknown) (no (unknown) (unknown) 03/15/22 (units (unkno wn) date) unknown) (unknown) (no (unknown) (unknown) [id number] (units (unkno wn) date) unknown) (unknown) (no (unknown) (unknown) Age related (units (un known) date) osteoporosis unknown) (unknown) (no (unknown) (unknown) Age/Sex: 86 / F (units (unknown) date) Date of unknown) Service: (unknown) (no (unknown) (unknown) Allergies (units (unkn own) date) unknown) (unknown) (no (unknown) (unknown) Anemia (units (unkno wn) date) unknown) (unknown) (no (unknown) (unknown) Arthritis (units (unkn own) date) unknown) (unknown) (no (unknown) (unknown) Assessment + (units (u nknown) date) Plan unknown) (unknown) (no (unknown) (unknown) Attending Dr: (units ( unknown) date) Adrienne Lyon MD unknown) (unknown) (no (unknown) (unknown) BMI 16.5 (units (un known) date) unknown) (unknown) (no (unknown) (unknown) BP 138/68 (units (u nknown) date) unknown) (unknown) (no (unknown) (unknown) Blood Pressure (units (unknown) date) Location Rt unknown) brachial (unknown) (no (unknown) (unknown) Brother (units (unkno wn) date) unknown) Diabetes mellitus (unknown) (no (unknown) (unknown) Brother (units (unkno wn) date) Heart unknown) disease (unknown) (no (unknown) (unknown) Chief Complaint (units (unknown) date) unknown) (unknown) (no (unknown) (unknown) Chief Complaint: (units (unknown) date) pessary check unknown) (unknown) (no (unknown) (unknown) Const (units (unkno wn) date) unknown) (unknown) (no (unknown) (unknown) : 1935 (units (unknown) date) Acct:[id number] unknown) (unknown) (no (unknown) (unknown) 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 unknown) (unknown) (no (unknown) (unknown) Details: (units (unkno wn) date) unknown) (unknown) (no (unknown) (unknown) Documented By: (units (unknown) date) Adrienne Lyon MD unknown) 03/15/22 1556 (unknown) (no (unknown) (unknown) Exam (units (unkno wn) date) unknown) (unknown) (no (unknown) (unknown) Family History (units (unknown) date) (Reviewed unknown) 03/15/22 @ 17:16 by Adrienne Lyon MD) (unknown) (no (unknown) (unknown) Father (units (unkno wn) date) unknown) Osteoporosis (unknown) (no (unknown) (unknown) GI (units (unkno wn) date) unknown) (unknown) (no (unknown) (unknown) (units (unkno wn) date) unknown) (unknown) (no (unknown) (unknown) Gastrointestinal (units (unknown) date) : Reports as per unknown) HPI (unknown) (no (unknown) (unknown) General: (units (unkno wn) date) cooperative, unknown) healthy appearing, comfortable and well groomed (unknown) (no (unknown) (unknown) HPI (units (unkno wn) date) unknown) (unknown) (no (unknown) (unknown) Headache (units (unkno wn) date) unknown) (unknown) (no (unknown) (unknown) Height 5 ft 3 (units (unknown) date) in unknown) (unknown) (no (unknown) (unknown) History of (units (unk nown) date) carpal tunnel unknown) repair (unknown) (no (unknown) (unknown) History of sinus (units (unknown) date) surgery unknown) (unknown) (no (unknown) (unknown) History of (units (unk nown) date) spinal fusion unknown) (unknown) (no (unknown) (unknown) History of (units (unk nown) date) tonsillectomy unknown) (unknown) (no (unknown) (unknown) Intake (units (unkno wn) date) unknown) (unknown) (no (unknown) (unknown) Intake Note: (units (u nknown) date) unknown) (unknown) (no (unknown) (unknown) Intake performed (units (unknown) date) by: Brooke Gaines unknown) (unknown) (no (unknown) (unknown) Intake- Clincial (units (unknown) date) Staff unknown) (unknown) (no (unknown) (unknown) Last Menstural (units (unknown) date) Cycle + Details unknown) (unknown) (no (unknown) (unknown) Loc: [facility] (units (unkno wn) date) unknown) (unknown) (no (unknown) (unknown) Medical History (units (unknown) date) (Reviewed unknown) 03/15/22 @ 17:16 by Adrienne Lyon MD) (unknown) (no (unknown) (unknown) Mother (units (unkno wn) date) Heart unknown) disease (unknown) (no (unknown) (unknown) OB/External + (units ( unknown) date) Speculum: No unknown) vaginal bleeding (unknown) (no (unknown) (unknown) Other Menstrual (units (unknown) date) Period: unknown) Postmenopausal (unknown) (no (unknown) (unknown) PFSH (units (unkno wn) date) unknown) (unknown) (no (unknown) (unknown) Patient: (units (unkno wn) date) Conchis Rodriguez unknown) MR#: [id number] (unknown) (no (unknown) (unknown) Pessary (units (unkno wn) date) maintenance unknown) (unknown) (no (unknown) (unknown) Position (units (unkno wn) date) Sitting unknown) (unknown) (no (unknown) (unknown) ROS (units (unkno wn) date) unknown) (unknown) (no (unknown) (unknown) Reason For Visit (units (unknown) date) unknown) (unknown) (no (unknown) (unknown) Reports as per (units (unknown) date) HPI unknown) (unknown) (no (unknown) (unknown) Reports system (units (unknown) date) reviewed and no unknown) additional complaints, except as documented (unknown) (no (unknown) (unknown) She reports she (units (unknown) date) had a UTI shortly unknown) after her last visit. (unknown) (no (unknown) (unknown) Signed By: (units (unk nown) date) <Electronically unknown) signed by Adrienne Lyon MD> (unknown) (no (unknown) (unknown) Smoking Status: (units (unknown) date) Never smoker unknown) (unknown) (no (unknown) (unknown) Social History (units (unknown) date) unknown) (unknown) (no (unknown) (unknown) Speculum Exam - (units (unknown) date) Vagina: abnormal unknown) vaginal discharge (c/w pessary), vagina (unknown) (no (unknown) (unknown) Speculum Exam: (units (unknown) date) no vaginal unknown) bleeding (unknown) (no (unknown) (unknown) Status post (units (un known) date) epidural steroid unknown) injection (04/15/18) (unknown) (no (unknown) (unknown) Surgical History (units (unknown) date) (Reviewed unknown) 03/15/22 @ 17:16 by Adrienne Lyon MD) (unknown) (no (unknown) (unknown) This note may (units ( unknown) date) have been all or unknown) partially generated using voice recognition (unknown) (no (unknown) (unknown) This patient (units (u nknown) date) presents for a unknown) pessary check. Her prior erosions are much improved (unknown) (no (unknown) (unknown) This patient (units (u nknown) date) presents for a unknown) pessary check. She is using a walker for the first (unknown) (no (unknown) (unknown) Tobacco + (units (unkn own) date) Substance Use unknown) (unknown) (no (unknown) (unknown) Tobacco Status (units (unknown) date) unknown) (unknown) (no (unknown) (unknown) Vaginal prolapse (units (unknown) date) unknown) (unknown) (no (unknown) (unknown) Visit Reasons: (units (unknown) date) Pessary check unknown) (unknown) (no (unknown) (unknown) Vitals (units (unkno wn) date) unknown) (unknown) (no (unknown) (unknown) Weight 93 lb (units (unknown) date) unknown) (unknown) (no (unknown) (unknown) alcohol intake: (units (unknown) date) never unknown) (unknown) (no (unknown) (unknown) and we discussed (units (unknown) date) using the perls unknown) 2-3x weekly. She was encouraged to call with (unknown) (no (unknown) (unknown) any questions or (units (unknown) date) concerns. f/u in unknown) 3 months. (unknown) (no (unknown) (unknown) atrophic (units (unkno wn) date) (improved), not unknown) erythematous, no lacerations, no lesions and No vaginal (unknown) (no (unknown) (unknown) bleeding (units (unkno wn) date) unknown) (unknown) (no (unknown) (unknown) discharge and (units ( unknown) date) has used the unknown) estrogen perls every other day since her last visit. (unknown) (no (unknown) (unknown) essleeanna is (units (unkno wn) date) controlling her unknown) urinary retention well. She denies vaginal bleeding or (unknown) (no (unknown) (unknown) have occurred. (units (unknown) date) If there are any unknown) questions, please contact the Medical Records (unknown) (no (unknown) (unknown) household (units (unkn own) date) members: spouse unknown) (unknown) (no (unknown) (unknown) may occur. (units (unk nown) date) Occasional unknown) wrong-word or 'sound-alike' substitutions may have (unknown) (no (unknown) (unknown) occurred due to (units (unknown) date) the inherent unknown) limitations of voice recognition software. Please (unknown) (no (unknown) (unknown) pramipexole (units (un known) date) [From MIRAPEX] unknown) Allergy (Severe, Verified 02/06/22 11:23) (unknown) (no (unknown) (unknown) pt here for (units (un known) date) pessary check unknown) (unknown) (no (unknown) (unknown) read the note (units ( unknown) date) carefully and unknown) recognize, using context, where these substitutions (unknown) (no (unknown) (unknown) software. (units (unkn own) date) Although every unknown) effort is made to edit content, compensation intern errors (unknown) (no (unknown) (unknown) time today, has (units (unknown) date) GI irritation and unknown) ongoing back pain, but reports that her p Result panel 13 (unknown) (no date) (unknown) (unknown) 1.4 (units unknown) (unknown) (unknown) (no date) (unknown) (unknown) 15.6 SECONDS (unkn own) Social History date description facility (no date) Never smoked tobacco (finding) [facility] Vital Signs date measurement value units [id number] BMI BMI 17.7 kg/m2 [id number]+0000 BP_diastolic BP_diastolic 60 mm[H g] +0000 BP_systolic BP_systolic 114 mm[Hg] +0000 height_metric height_metric 160.02 cm +0000 height_standard height_standard 63 in +0000 weight_metric weight_metric 20.64 kg +0000 weight_standard weight_standard 45.5 lb +0000 BMI BMI 16.5 kg/m2 +0000 BP_diastolic BP_diastolic 68 mm[H g] +0000 BP_systolic BP_systolic 138 mm[Hg] +0000 height_metric height_metric 160.02 cm +0000 height_standard height_standard 63 in +0000 weight_metric weight_metric 19.13 kg +0000 weight_standard weight_standard 42.18 lb
--- NOTE | 2022-04-29 20:46 | ED Physician Documentation ---
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 She was removing glass Pyrex dishes from her lower cupboard when she dropped 1 on her foot. It did not break and she did not sustain any lacerations. She is on Coumadin and recently had a dose adjustment because her Coumadin level was too low a week ago. She is scheduled to have it rechecked tomorrow. She denies injury elsewhere. Pain is worse with ambulation and better at rest. She has not taken anything for the pain. Review of Systems Constitutional: denies: Fever Nose: denies: Congestion Cardiac: denies: Chest pain / pressure Respiratory: denies: Dyspnea GI: denies: Abdominal Pain Skin: denies: Laceration (s) Musculoskeletal: reports: Extremity pain Neurologic: denies: Head injury PD PAST MEDICAL HISTORY - Past Medical History Cardiovascular: Murmur Respiratory: Asthma Neuro: None Endocrine/Autoimmune: None GI: GERD ORGANIZATIONAL CONSULTANT: None : None HEENT: Chronic sinusitis Psych: None Musculoskeletal: Osteoarthritis, Osteopenia Derm: None - Past Surgical History Past Surgical History: Yes Ortho: Carpal Tunnel surgery, Spine surgery Cardiovascular: CABG, Valve replacement, Pacemaker - Present Medications Home Medications: Ambulatory Orders Medication Instructions Recorded Confirmed Beclomethasone Dipropionate [Qvar] 1 spray PO DAILY 05/01/16 12/18/16 Fluticasone [Flonase] 1 spray PO DAILY 05/01/16 12/18/16 Meclizine HCl [Antivert] 25 mg PO Q6H PRN #30 tablet 05/01/16 12/18/16 raNITIdine [Zantac] 150 mg PO DAILY 05/01/16 12/18/16 Albuterol Sulfate [Proair Hfa 1 puffs INH Q4HR PRN 11/21/16 12/18/16 Inhaler] Ascorbic Acid [Vitamin C] 500 mg PO DAILY 11/21/16 12/18/16 Aspirin [Aspir-Low] 81 mg PO DAILY 11/21/16 12/18/16 Calcium Carbonate/Vitamin D3 1 each PO DAILY 11/21/16 12/18/16 [Calcium 600-Vit D3 400 Tablet] Magnesium Oxide [Magnesium] 400 mg PO DAILY 11/21/16 12/18/16 Multivitamin [Multiple Vitamins] 1 tab PO DAILY 11/21/16 12/18/16 Meclizine [Antivert] 12.5 mg PO Q6H PRN #30 tablet 04/27/19 dexAMETHasone [Decadron] 4 mg PO DAILY #5 tablet 04/27/19 Magnesium Citrate 296 ml PO ONCE PRN #296 ml 11/01/21 cephALEXin [Keflex] 500 mg PO Q6H #20 cap 11/01/21 - Allergies Allergies/Adverse Reactions: Allergies Allergy/AdvReac Type Severity Reaction Status Date / Time gabapentin AdvReac Dizziness Verified 11/01/21 16:24 pramipexole di-HCl * AdvReac Dizziness Verified 11/01/21 16:24 [From Mirapex] - Social History Does the pt smoke?: No Smoking Status: Never smoker Does the pt drink ETOH?: No Does the pt have substance abuse?: No - Immunizations Immunizations are current?: Yes - POLST Patient has POLST: No PD ED PE NORMAL - General General: Alert and oriented X 3, No acute distress, Well developed/nourished - HEENT HEENT: Atraumatic - Respiratory Respiratory: No respiratory distress - Extremities Extremities: No: No tenderness to palpate PD ED PE EXPANDED - Extremities Extremities: Right foot (Contusion), Pedal Pulses Present, Motor intact, Sensory intact, Vascular intact Feet visual: 1 - bruising, tenderness Results - Vitals Vitals: Vital Signs - 24 hr 04/29/22 20:05 Temperature 36.6 C Heart Rate 78 Respiratory 18 Rate Blood Pressure 161/94 H O2 Saturation 98 Oxygen O2 Source Room air - Labs Labs: Laboratory Tests 04/29/22 21:02 PT 20.7 H INR 1.9 H PD MEDICAL DECISION MAKING - ED course Complexity details: reviewed results, re-evaluated patient, d/w patient ED course: Patient with injury to right foot. X-ray is negative for acute fractures. Patient does have contusion. She is on Coumadin and an INR is 1.9. Patient is already planning on speaking with her doctor tomorrow regarding her INR. As x- ray was negative for fracture dislocation, patient was counseled on continuing supportive care. She did have slightly more tenderness to the second digit and a renea tape was applied . Patient was also given a postop shoe for comfort. She is aware of return precautions for any worsening pain or swelling. Departure - Departure Disposition: 01 Home, Self Care Clinical Impression: Contusion of right foot, initial encounter, Subtherapeutic international normalized ratio (INR) Condition: Stable Instructions: ED Contusion Foot Follow-Up: Leah Hook MD [Primary Care Provider] - Comments: You were evaluated for an injury to your right foot. And x-ray did not show any new fractures or out of place bones. There are signs of previous fractures to several of your toes. You do have quite a bit of bruisingWhich may be the reason for your pain. We will renea tape the 2 of your toes together and see if this helps. Please also use ice, elevate the foot and Tylenol as needed for pain. Your warfarin level was also checked today and is 1.9 which is slightly lower than your ideal range. Please call your primary care doctor in the morning to discuss your warfarin level and to make adjustments regarding your dosing. Please return to the emergency department with any concerning symptoms such as increased pain, numbness, weakness of the extremity or other concerns. Discharge Date/Time: 04/29/22 21:51
[2022-04-29 21:15] LABS: INR 1.9 (0.8-1.2); PT - PROTHROMBIN TIME 20.7 secs (9.9-12.6)
--- NOTE | 2022-04-29 21:15 | XRAY Report ---
PROCEDURE: Foot 3 View RT INDICATIONS: injury TECHNIQUE: 3 views of the foot were acquired. COMPARISON: None. FINDINGS: Bones: No definite acute fractures or dislocations. There is deformity of the second, third and fift h proximal phalanges consistent with sequelae of prior healed fractures. There is osteopenia. No susp icious bony lesions. Soft tissues: No suspicious of tissue calcifications. IMPRESSION: 1. No definite acute fracture or dislocation. 2. Sequelae of old healed fractures of the second, third, and fifth proximal phalanges. Reviewed by: Anshul Durand MD on 04/29/2022 9:14 PM PDT Approved by: Anshul Durand MD on 04/29/2022 9:14 PM PDT Station ID: [id number]
== END 2022-04-29 21:51 | disposition home or self-care (01) ==
LOC: ED 20:01
DX: Z95.0 Presence of cardiac pacemaker (principal); Z79.01 Long term (current) use of anticoagulants; S90.31XA Contusion of right foot, initial encounter; W20.8XXA Other cause of strike by thrown, projected or falling object, initial encounter
CPT/HCPCS: 36415; 85610; 99282; 99284

== ENCOUNTER 2022-09-29 10:11 | Outpatient (CLI) | payer MEDICARE, BC | END 2022-09-29 10:12 | disposition home or self-care (01) | LOC: LAB 10:11 | PROVIDERS: ATTEND Family Medicine | DX: Z79.01 Long term (current) use of anticoagulants (principal); Z95.2 Presence of prosthetic heart valve | CPT/HCPCS: 36416; 85610 ==

== ENCOUNTER 2022-10-24 12:56 | Outpatient (CLI) | payer MEDICARE, BC ==
--- NOTE | 2022-10-30 10:16 | Mammography Report ---
BILATERAL DIGITAL SCREENING MAMMOGRAM 3D/2D: 10/24/2022 Comparison is made to exams dated: 09/05/2021 mammogram, 09/05/2021 mammogram, and 08/23/2020 mammogra [facility]. There are scattered areas of fibroglandular density in both breasts (category b / 25%-50% glandular t issue). No significant masses, calcifications, or other findings are seen in either breast. There has been no significant interval change. IMPRESSION: NEGATIVE There is no mammographic evidence of malignancy. A 1 year screening mammogram is recommended. This exam was interpreted at Station ID: [id number]. NOTE: For mammograms, a report in lay terms will be sent to the patient. Approximately 15% of breast malignancies will not be visualized mammographically. In the management of a palpable breast mass, a negative mammogram must not discourage biopsy of a clinically suspicious lesion. Electronically Signed By: Vickie wilkerson/william:10/26/2022 12:37:01 ACR BI-RADS Category 1: Negative 3341F PARENCHYMAL PATTERN: (A) - The breast(s) demonstrate(s) scattered fibroglandular densities. BI-RADS CATEGORY: (1) - 1 RECOMMENDATION: (ANNUAL) - Recommend routine annual screening mammography. [id number] 1 year screening LATERALITY: (B)
== END 2022-10-24 12:57 | disposition home or self-care (01) ==
LOC: DI 12:56
PROVIDERS: ATTEND Family Medicine
DX: Z12.31 Encounter for screening mammogram for malignant neoplasm of breast (principal)

== ENCOUNTER 2022-10-24 12:59 | Outpatient (CLI) | payer MEDICARE, BC | END 2022-10-24 13:00 | disposition home or self-care (01) | LOC: LAB 12:59 | PROVIDERS: ATTEND Family Medicine | DX: Z95.2 Presence of prosthetic heart valve (principal); Z79.01 Long term (current) use of anticoagulants | CPT/HCPCS: 36416; 85610 ==

== ENCOUNTER 2022-11-21 15:43 | Outpatient (CLI) | payer MEDICARE, BC | END 2022-11-21 15:44 | disposition home or self-care (01) | LOC: LAB 15:43 | PROVIDERS: ATTEND Family Medicine | DX: Z79.01 Long term (current) use of anticoagulants (principal); Z95.2 Presence of prosthetic heart valve | CPT/HCPCS: 36416; 85610 ==

== ENCOUNTER 2022-12-07 09:12 | Outpatient (CLI) | payer MEDICARE, BC ==
[2022-12-07 09:36] LABS: BASOPHILS # (AUTO) 0.2 10^3/uL (0.0-0.1); BASOPHILS % (AUTO) 1.8 %; EOSINOPHILS # (AUTO) 0.2 10^3/uL (0.0-0.7); EOSINOPHILS % (AUTO) 2.6 %; HCT - HEMATOCRIT 40.7 % (37.0-47.0); HGB - HEMOGLOBIN 12.8 g/dL (12.0-16.0); LYMPHOCYTES # (AUTO) 2.4 10^3/uL (1.5-3.5); LYMPHOCYTES % (AUTO) 26.1 %; MEAN CORPUSCULAR HEMOGLOBIN 32.2 pg (27.0-31.0); MEAN CORPUSCULAR HGB CONC 31.4 g/dL (32.0-36.0); MEAN CORPUSCULAR VOLUME 102.5 fL (81.0-99.0); MEAN PLATELET VOLUME 9.9 fL (7.9-10.8); MONOCYTES # (AUTO) 0.9 10^3/uL (0.0-1.0); MONOCYTES % (AUTO) 9.3 %; NEUTROPHILS # (AUTO) 5.5 10^3/uL (1.5-6.6); NEUTROPHILS % (AUTO) 59.9 %; PLT - PLATELET COUNT 279 10^3/uL (130-450); RED BLOOD COUNT 3.97 10^6/uL (4.20-5.40); RED CELL DISTRIBUTION WIDTH 17.2 % (12.0-15.0); WHITE BLOOD COUNT 9.2 x10^3/uL (4.8-10.8)
[2022-12-07 09:49] LABS: ALBUMIN 3.8 g/dL (3.2-5.5); ALBUMIN/GLOBULIN RATIO 1.1 (1.0-2.2); BILIRUBIN,TOTAL 0.9 mg/dL (0.2-1.0); CALCIUM 9.2 mg/dL (8.5-10.3); CREATININE 0.8 mg/dL (0.4-1.0); POTASSIUM 4.1 mmol/L (3.5-5.0); TOTAL PROTEIN 7.3 g/dL (6.7-8.2)
== END 2022-12-07 09:13 | disposition home or self-care (01) ==
LOC: LAB 09:12
PROVIDERS: ATTEND Family Medicine
DX: I10 Essential (primary) hypertension (principal); Z95.2 Presence of prosthetic heart valve; R74.01 Elevation of levels of liver transaminase levels; E78.5 Hyperlipidemia, unspecified; Z79.01 Long term (current) use of anticoagulants
CPT/HCPCS: 36415; 80053; 82977; 85025; 85610

== ENCOUNTER 2023-01-18 11:14 | Outpatient (CLI) | payer MEDICARE, BC | END 2023-01-18 11:15 | disposition home or self-care (01) | LOC: LAB 11:14 | PROVIDERS: ATTEND Family Medicine | DX: Z79.01 Long term (current) use of anticoagulants (principal); Z95.2 Presence of prosthetic heart valve | CPT/HCPCS: 36416; 85610 ==

== ENCOUNTER 2023-01-31 08:35 | Outpatient (CLI) | payer MEDICARE, BC ==
[2023-01-31 08:45] LABS: BASOPHILS # (AUTO) 0.2 10^3/uL (0.0-0.1); EOSINOPHILS # (AUTO) 0.4 10^3/uL (0.0-0.7); EOSINOPHILS % (AUTO) 4.3 %; HCT - HEMATOCRIT 41.7 % (37.0-47.0); HGB - HEMOGLOBIN 13.1 g/dL (12.0-16.0); LYMPHOCYTES # (AUTO) 2.8 10^3/uL (1.5-3.5); LYMPHOCYTES % (AUTO) 32.1 %; MEAN CORPUSCULAR HEMOGLOBIN 32.1 pg (27.0-31.0); MEAN CORPUSCULAR HGB CONC 31.4 g/dL (32.0-36.0); MEAN CORPUSCULAR VOLUME 102.2 fL (81.0-99.0); MEAN PLATELET VOLUME 9.8 fL (7.9-10.8); MONOCYTES # (AUTO) 0.8 10^3/uL (0.0-1.0); MONOCYTES % (AUTO) 9.1 %; NEUTROPHILS # (AUTO) 4.6 10^3/uL (1.5-6.6); NEUTROPHILS % (AUTO) 52.3 %; PLT - PLATELET COUNT 297 10^3/uL (130-450); RED BLOOD COUNT 4.08 10^6/uL (4.20-5.40); WHITE BLOOD COUNT 8.9 x10^3/uL (4.8-10.8)
[2023-01-31 09:03] LABS: ALBUMIN 4.1 g/dL (3.2-5.5); ALBUMIN/GLOBULIN RATIO 1.1 (1.0-2.2); ALKALINE PHOSPHATASE 115 IU/L (42-121); ALT ALANINE AMINOTRANSFERASE 37 IU/L (10-60); AST ASPARTATE AMINOTRANSFERASE 49 IU/L (10-42); BILIRUBIN,TOTAL 0.7 mg/dL (0.2-1.0); BUN - BLOOD UREA NITROGEN 20 mg/dL (6-20); CALCIUM 9.3 mg/dL (8.5-10.3); CARBON DIOXIDE - CO2 31 mmol/L (21-32); CHLORIDE 105 mmol/L (101-111); CHOLESTEROL 147 mg/dL; CREATININE 0.8 mg/dL (0.4-1.0); GFR - MDRD 68 (>89); GLUCOSE 95 mg/dL (70-100); HDL CHOLESTEROL 73 mg/dL; LDL CHOLESTEROL,CALCULATED 62 mg/dL; LDL/HDL RATIO 0.8 (<4.4); POTASSIUM 4.4 mmol/L (3.5-5.0); SODIUM 141 mmol/L (135-145); TOTAL PROTEIN 7.8 g/dL (6.7-8.2); TRIGLYCERIDES 60 mg/dL; VLDL CHOLESTEROL 12 mg/dL
== END 2023-01-31 08:36 | disposition home or self-care (01) ==
LOC: LAB 08:35
PROVIDERS: ATTEND Nurse Practitioner
DX: E78.5 Hyperlipidemia, unspecified (principal); I42.9 Cardiomyopathy, unspecified
CPT/HCPCS: 36415; 80053; 80061; 83721; 85025

== ENCOUNTER 2023-03-01 10:25 | Outpatient (CLI) | payer MEDICARE, BC | END 2023-03-01 10:26 | disposition home or self-care (01) | LOC: LAB 10:25 | PROVIDERS: ATTEND Family Medicine | DX: Z95.2 Presence of prosthetic heart valve (principal); Z79.01 Long term (current) use of anticoagulants | CPT/HCPCS: 36416; 85610 ==

== ENCOUNTER 2023-03-06 10:53 | Outpatient (CLI) | payer MEDICARE, BC ==
[2023-03-06 11:18] LABS: ALBUMIN 4.3 g/dL (3.2-5.5); ALBUMIN/GLOBULIN RATIO 1.2 (1.0-2.2); BILIRUBIN,TOTAL 0.7 mg/dL (0.2-1.0); CALCIUM 9.6 mg/dL (8.5-10.3); CREATININE 0.8 mg/dL (0.4-1.0); POTASSIUM 4.4 mmol/L (3.5-5.0); TOTAL PROTEIN 7.8 g/dL (6.7-8.2)
== END 2023-03-06 10:54 | disposition home or self-care (01) ==
LOC: LAB 10:53
PROVIDERS: ATTEND Family Medicine
DX: I10 Essential (primary) hypertension (principal); E78.5 Hyperlipidemia, unspecified; E83.52 Hypercalcemia
CPT/HCPCS: 36415; 80053

== ENCOUNTER 2023-04-11 09:36 | Outpatient (CLI) | payer MEDICARE, BC ==
[2023-04-11 09:49] LABS: CALCIUM, IONIZED 1.2 mmol/L (1.15-1.33); VBG PH 7.33 (7.31-7.41)
[2023-04-11 09:57] LABS: CALCIUM 9.2 mg/dL (8.5-10.3); CREATININE 0.8 mg/dL (0.4-1.0); POTASSIUM 4.2 mmol/L (3.5-5.0)
== END 2023-04-11 09:37 | disposition home or self-care (01) ==
LOC: LAB 09:36
PROVIDERS: ATTEND Family Medicine
DX: M81.0 Age-related osteoporosis without current pathological fracture (principal)
CPT/HCPCS: 36415; 80048; 82330

== ENCOUNTER 2023-04-20 14:00 | Emergency (ER) | payer MEDICARE, BC ==
--- OUTSIDE RECORDS SUMMARY | 2023-04-20 14:25 | EXTERNAL MEDICAL SUMMARY RPT | Continuity of Care Document ---
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 [facility] Results/Labs test date author facility value unit interpretation Result panel 1 (unknown) (no date) (unknown) (unknown) (no value) (units unknown) (unknown) (unknown) (no date) (unknown) (unknown) 02/12/23 (units unknown) (unknown) (unknown) (no date) (unknown) (unknown) [id number] (units unknown) (unknown) (unknown) (no date) (unknown) (unknown) Age related osteoporosis (units unknown) (unknown) (unknown) (no date) (unknown) (unknown) Age/Sex: 87 / F Date of Service: (units unknown) (unknown) (unknown) (no date) (unknown) (unknown) Allergies (units unknown) (unknown) (unknown) (no date) (unknown) (unknown) [place] [address] (units unknown) (unknown) (unknown) (no date) (unknown) (unknown) Anemia (units unknown) (unknown) (unknown) (no date) (unknown) (unknown) Arthritis (units unknown) (unknown) (unknown) (no date) (unknown) (unknown) Attending Dr: Mamadou Bustamante MD (units unknown) (unknown) (unknown) (no date) (unknown) (unknown) Breast cancer (units unknown) (unknown) (unknown) (no date) (unknown) (unknown) Brother Deceas ed Diabetes mellitus (units unknown) (unknown) (unknown) (no date) (unknown) (unknown) Brother Deceas ed Heart disease (units unknown) (unknown) (unknown) (no date) (unknown) (unknown) : 7 Acct:[id number] (units unknown) (unknown) (unknown) (no date) (unknown) (unknown) Degenerative l umbar spinal stenosis (units unknown) (unknown) (unknown) (no date) (unknown) (unknown) Dept at . (units unknown) (unknown) (unknown) (no date) (unknown) (unknown) Diabetes mellitus (u nits unknown) (unknown) (unknown) (no date) (unknown) (unknown) Documented By: Mamadou Bustamante MD 02/12/23 1051 (units unknown) (unknown) (unknown) (no date) (unknown) (unknown) Draft (units unknown) (unknown) (unknown) (no date) (unknown) (unknown) Family History (units unknown) (unknown) (unknown) (no date) (unknown) (unknown) Father d Osteoporosis (units unknown) (unknown) (unknown) (no date) (unknown) (unknown) [facility] (units unknown) (unknown) (unknown) (no date) (unknown) (unknown) Gynecology Visit (un its unknown) (unknown) (unknown) (no date) (unknown) (unknown) Headache (units unknown) (unknown) (unknown) (no date) (unknown) (unknown) History of car pal tunnel repair (units unknown) (unknown) (unknown) (no date) (unknown) (unknown) History of sin us surgery (units unknown) (unknown) (unknown) (no date) (unknown) (unknown) History of spi nal fusion (units unknown) (unknown) (unknown) (no date) (unknown) (unknown) History of tonsillectomy (units unknown) (unknown) (unknown) (no date) (unknown) (unknown) Intake Note: (units unknown) (unknown) (unknown) (no date) (unknown) (unknown) Intake (units unknown) (unknown) (unknown) (no date) (unknown) (unknown) Last Menstural Cycle + Details (units unknown) (unknown) (unknown) (no date) (unknown) (unknown) Loc: [facility] (units unknown) (unknown) (unknown) (no date) (unknown) (unknown) Medical Histor y (units unknown) (unknown) (unknown) (no date) (unknown) (unknown) Mother d Heart disease (units unknown) (unknown) (unknown) (no date) (unknown) (unknown) NAUSEA/ PASSED OUT ( units unknown) (unknown) (unknown) (no date) (unknown) (unknown) Other Menstrua l Period: Postmenopausal (units unknown) (unknown) (unknown) (no date) (unknown) (unknown) PFSH (units unknown) (unknown) (unknown) (no date) (unknown) (unknown) Patient: Theresa Rodriguez MR#: [id number] (units unknown) (unknown) (unknown) (no date) (unknown) (unknown) Pessary maintenance (units unknown) (unknown) (unknown) (no date) (unknown) (unknown) Pt is here for a pessary check (units unknown) (unknown) (unknown) (no date) (unknown) (unknown) Reason For Visit (un its unknown) (unknown) (unknown) (no date) (unknown) (unknown) Signed By: (units unknown) (unknown) (unknown) (no date) (unknown) (unknown) Smoking Status : Never smoker (units unknown) (unknown) (unknown) (no date) (unknown) (unknown) Social History (unit s unknown) (unknown) (unknown) (no date) (unknown) (unknown) Status post epidural steroid injection (04/15/18) (units unknown) (unknown) (unknown) (no date) (unknown) (unknown) Stroke (units unknown) (unknown) (unknown) (no date) (unknown) (unknown) Surgical Histo ry (units unknown) (unknown) (unknown) (no date) (unknown) (unknown) This note may have been all or partially generated using voice recognition (units unknown) (unknown) (unknown) (no date) (unknown) (unknown) Tobacco + Subs tance Use (units unknown) (unknown) (unknown) (no date) (unknown) (unknown) Tobacco Status (unit s unknown) (unknown) (unknown) (no date) (unknown) (unknown) Vaginal prolapse (un its unknown) (unknown) (unknown) (no date) (unknown) (unknown) Visit Reasons: Pessary Check (units unknown) (unknown) (unknown) (no date) (unknown) (unknown) alcohol intake : never (units unknown) (unknown) (unknown) (no date) (unknown) (unknown) have occurred. If there are any questions, please contact the Medical Records (units unknown) (unknown) (unknown) (no date) (unknown) (unknown) household memb ers: spouse (units unknown) (unknown) (unknown) (no date) (unknown) (unknown) may occur. Occasional wrong-word or 'sound-alike' substitutions may have (units unknown) (unknown) (unknown) (no date) (unknown) (unknown) occurred due t o the inherent limitations of voice recognition software. Please (units unknown) (unknown) (unknown) (no date) (unknown) (unknown) pramipexole [F rom MIRAPEX] Allergy (Severe, Verified 12/05/22 11:40) (units unknown) (unknown) (unknown) (no date) (unknown) (unknown) read the note carefully and recognize, using context, where these substitutions (units unknown) (unknown) (unknown) (no date) (unknown) (unknown) software. 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 (units unknown) (unknown) Result panel 2 (unknown) (no date) (unknown) (unknown) (no value) (units unknown) (unknown) (unknown) (no date) (unknown) (unknown) ##0 01/10/18 [History Confirmed 02/12/23] (units unknown) (unknown) (unknown) (no date) (unknown) (unknown) 02/12/23 (units unknown) (unknown) (unknown) (no date) (unknown) (unknown) 02/12/23] (units unknown) (unknown) (unknown) (no date) (unknown) (unknown) 04/18/21 [Hist ory Confirmed 02/12/23] (units unknown) (unknown) (unknown) (no date) (unknown) (unknown) 11:02 (units unknown) (unknown) (unknown) (no date) (unknown) (unknown) [id number] (units unknown) (unknown) (unknown) (no date) (unknown) (unknown) Age related osteoporosis (units unknown) (unknown) (unknown) (no date) (unknown) (unknown) Age/Sex: 87 / F Date of Service: (units unknown) (unknown) (unknown) (no date) (unknown) (unknown) Allergies (units unknown) (unknown) (unknown) (no date) (unknown) (unknown) [place] [address] (units unknown) (unknown) (unknown) (no date) (unknown) (unknown) Anemia (units unknown) (unknown) (unknown) (no date) (unknown) (unknown) Arthritis (units unknown) (unknown) (unknown) (no date) (unknown) (unknown) Attending Dr: Mamadou Bustamante MD (units unknown) (unknown) (unknown) (no date) (unknown) (unknown) BMI 21.1 (units unknown) (unknown) (unknown) (no date) (unknown) (unknown) BP 134/68 (units unknown) (unknown) (unknown) (no date) (unknown) (unknown) Blood Pressure Location Rt brachial (units unknown) (unknown) (unknown) (no date) (unknown) (unknown) Breast cancer (units unknown) (unknown) (unknown) (no date) (unknown) (unknown) Brother Deceas ed Diabetes mellitus (units unknown) (unknown) (unknown) (no date) (unknown) (unknown) Brother Deceas ed Heart disease (units unknown) (unknown) (unknown) (no date) (unknown) (unknown) Confirmed 02/12/23] (units unknown) (unknown) (unknown) (no date) (unknown) (unknown) DAILY 07/25/22 [History Confirmed 02/12/23] (units unknown) (unknown) (unknown) (no date) (unknown) (unknown) : 7 Acct:[id number] (units unknown) (unknown) (unknown) (no date) (unknown) (unknown) Degenerative l umbar spinal stenosis (units unknown) (unknown) (unknown) (no date) (unknown) (unknown) Dept at . (units unknown) (unknown) (unknown) (no date) (unknown) (unknown) Diabetes mellitus (u nits unknown) (unknown) (unknown) (no date) (unknown) (unknown) Documented By: Mamadou Bustamante MD 02/12/23 1051 (units unknown) (unknown) (unknown) (no date) (unknown) (unknown) Draft (units unknown) (unknown) (unknown) (no date) (unknown) (unknown) Estradiol pear ls 10 mcg vaginal 2XW #30 supp 02/08/22 [Rx Confirmed 02/12/23] (units unknown) (unknown) (unknown) (no date) (unknown) (unknown) Family History (units unknown) (unknown) (unknown) (no date) (unknown) (unknown) Father d Osteoporosis (units unknown) (unknown) (unknown) (no date) (unknown) (unknown) [facility] (units unknown) (unknown) (unknown) (no date) (unknown) (unknown) Flexhaler) 1 inhalation inhalation DAILY 12/29/19 [History Confirmed 02/12/23] (units unknown) (unknown) (unknown) (no date) (unknown) (unknown) Gynecology Visit (un its unknown) (unknown) (unknown) (no date) (unknown) (unknown) Headache (units unknown) (unknown) (unknown) (no date) (unknown) (unknown) Height 5 ft 0.5 in ( units unknown) (unknown) (unknown) (no date) (unknown) (unknown) History of car pal tunnel repair (units unknown) (unknown) (unknown) (no date) (unknown) (unknown) History of sin us surgery (units unknown) (unknown) (unknown) (no date) (unknown) (unknown) History of spi nal fusion (units unknown) (unknown) (unknown) (no date) (unknown) (unknown) History of tonsillectomy (units unknown) (unknown) (unknown) (no date) (unknown) (unknown) IV .q6mo 07/25 [History Confirmed 02/12/23] (units unknown) (unknown) (unknown) (no date) (unknown) (unknown) Intake Note: (units unknown) (unknown) (unknown) (no date) (unknown) (unknown) Intake (units unknown) (unknown) (unknown) (no date) (unknown) (unknown) Last Menstural Cycle + Details (units unknown) (unknown) (unknown) (no date) (unknown) (unknown) Loc: [facility] (units unknown) (unknown) (unknown) (no date) (unknown) (unknown) Medical Histor y (units unknown) (unknown) (unknown) (no date) (unknown) (unknown) Medications (units unknown) (unknown) (unknown) (no date) (unknown) (unknown) Mother d Heart disease (units unknown) (unknown) (unknown) (no date) (unknown) (unknown) NAUSEA/ PASSED OUT ( units unknown) (unknown) (unknown) (no date) (unknown) (unknown) Other Menstrua l Period: Postmenopausal (units unknown) (unknown) (unknown) (no date) (unknown) (unknown) Oxygen Deliver y Method room air (units unknown) (unknown) (unknown) (no date) (unknown) (unknown) PFSH (units unknown) (unknown) (unknown) (no date) (unknown) (unknown) Patient: Theresa Rodriguez MR#: [id number] (units unknown) (unknown) (unknown) (no date) (unknown) (unknown) Pessary maintenance (units unknown) (unknown) (unknown) (no date) (unknown) (unknown) Position Sitting (un its unknown) (unknown) (unknown) (no date) (unknown) (unknown) Pt is here for a pessary check. States she has been having some pink tinged (units unknown) (unknown) (unknown) (no date) (unknown) (unknown) Pulse 60 (units unknown) (unknown) (unknown) (no date) (unknown) (unknown) Pulse Oximetry (%) 96 (units unknown) (unknown) (unknown) (no date) (unknown) (unknown) Pulse Source Monitor (units unknown) (unknown) (unknown) (no date) (unknown) (unknown) Reason For Visit (un its unknown) (unknown) (unknown) (no date) (unknown) (unknown) Regular) 2 ea PO DAILY ##0 01/10/18 [History Confirmed 02/12/23] (units unknown) (unknown) (unknown) (no date) (unknown) (unknown) Signed By: (units unknown) (unknown) (unknown) (no date) (unknown) (unknown) Smoking Status : Never smoker (units unknown) (unknown) (unknown) (no date) (unknown) (unknown) Social History (unit s unknown) (unknown) (unknown) (no date) (unknown) (unknown) Status post epidural steroid injection (04/15/18) (units unknown) (unknown) (unknown) (no date) (unknown) (unknown) Stroke (units unknown) (unknown) (unknown) (no date) (unknown) (unknown) Surgical Histo ry (units unknown) (unknown) (unknown) (no date) (unknown) (unknown) This note may have been all or partially generated using voice recognition (units unknown) (unknown) (unknown) (no date) (unknown) (unknown) Tobacco + Subs tance Use (units unknown) (unknown) (unknown) (no date) (unknown) (unknown) Tobacco Status (unit s unknown) (unknown) (unknown) (no date) (unknown) (unknown) Vaginal prolapse (un its unknown) (unknown) (unknown) (no date) (unknown) (unknown) Visit Reasons: Pessary Check (units unknown) (unknown) (unknown) (no date) (unknown) (unknown) Vitals (units unknown) (unknown) (unknown) (no date) (unknown) (unknown) Weight 110 lb (units unknown) (unknown) (unknown) (no date) (unknown) (unknown) [History Confi rmed 02/12/23] (units unknown) (unknown) (unknown) (no date) (unknown) (unknown) alcohol intake : never (units unknown) (unknown) (unknown) (no date) (unknown) (unknown) ascorbic acid (vitamin C) 500 mg tablet 500 mg PO QDAY ##0 01/10/18 [History (units unknown) (unknown) (unknown) (no date) (unknown) (unknown) aspirin 81 mg tablet,delayed release (Adult Aspirin Regimen) 81 mg PO DAILY (units unknown) (unknown) (unknown) (no date) (unknown) (unknown) atorvastatin 4 0 mg tablet 40 mg PO DAILY 11/06/21 [History Confirmed 02/12/23] (units unknown) (unknown) (unknown) (no date) (unknown) (unknown) budesonide 180 mcg/actuation breath activated powder inhaler (Pulmicort (units unknown) (unknown) (unknown) (no date) (unknown) (unknown) calcitonin (sa lmon) 200 unit/actuation nasal spray 1 spray intranasal (ALT) (units unknown) (unknown) (unknown) (no date) (unknown) (unknown) calcium citrat e 250 mg calcium-vitamin D3 5 mcg (200 unit) tablet (Citracal (units unknown) (unknown) (unknown) (no date) (unknown) (unknown) come down. (units unknown) (unknown) (unknown) (no date) (unknown) (unknown) cyanocobalamin (vitamin B-12) 500 mcg lozenges (Vitamin B-12) 500 mcg PO DAILY (units unknown) (unknown) (unknown) (no date) (unknown) (unknown) discharge and feels like the pessary is still allowing her uterus and bladder to (units unknown) (unknown) (unknown) (no date) (unknown) (unknown) docusate sodiu m 100 mg tablet 100 mg PO BID #30 tabs 11/09/21 [Rx Confirmed (units unknown) (unknown) (unknown) (no date) (unknown) (unknown) have occurred. If there are any questions, please contact the Medical Records (units unknown) (unknown) (unknown) (no date) (unknown) (unknown) household memb ers: spouse (units unknown) (unknown) (unknown) (no date) (unknown) (unknown) magnesium oxid e 400 mg PO DAILY ##0 01/10/18 [History Confirmed 02/12/23] (units unknown) (unknown) (unknown) (no date) (unknown) (unknown) may occur. Occasional wrong-word or 'sound-alike' substitutions may have (units unknown) (unknown) (unknown) (no date) (unknown) (unknown) metoprolol succinate 25 mg tablet,extended release 24 hr 25 mg PO DAILY 02/25/20 (units unknown) (unknown) (unknown) (no date) (unknown) (unknown) multivitamin (Multiple Vitamins tablet) 1 tab PO QDAY ##0 01/10/18 [History (units unknown) (unknown) (unknown) (no date) (unknown) (unknown) occurred due t o the inherent limitations of voice recognition software. Please (units unknown) (unknown) (unknown) (no date) (unknown) (unknown) omeprazole 20 mg capsule,delayed release 20 mg PO QDAY@0600 ##0 01/10/18 (units unknown) (unknown) (unknown) (no date) (unknown) (unknown) pramipexole [F rom MIRAPEX] Allergy (Severe, Verified 02/12/23 11:02) (units unknown) (unknown) (unknown) (no date) (unknown) (unknown) read the note carefully and recognize, using context, where these substitutions (units unknown) (unknown) (unknown) (no date) (unknown) (unknown) software. 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 (units unknown) (unknown) (unknown) (no date) (unknown) (unknown) warfarin 3 mg tablet 3 mg PO DAILY 02/12/19 [History Confirmed 02/12/23] (units unknown) (unknown) (unknown) (no date) (unknown) (unknown) zoledronic aci d 5 mg/100 mL in mannitol 5 %-water intravenous piggybck (Reclast) (units unknown) (unknown) Result panel 3 (unknown) (no date) (unknown) (unknown) (no value) (units unknown) (unknown) (unknown) (no date) (unknown) (unknown) ##0 01/10/18 [History Confirmed 02/12/23] (units unknown) (unknown) (unknown) (no date) (unknown) (unknown) 02/12/23 (units unknown) (unknown) (unknown) (no date) (unknown) (unknown) 02/12/23] (units unknown) (unknown) (unknown) (no date) (unknown) (unknown) 04/18/21 [Hist ory Confirmed 02/12/23] (units unknown) (unknown) (unknown) (no date) (unknown) (unknown) 11:02 (units unknown) (unknown) (unknown) (no date) (unknown) (unknown) [id number] (units unknown) (unknown) (unknown) (no date) (unknown) (unknown) Affect: normal affect (units unknown) (unknown) (unknown) (no date) (unknown) (unknown) Age related osteoporosis (units unknown) (unknown) (unknown) (no date) (unknown) (unknown) Age/Sex: 87 / F Date of Service: (units unknown) (unknown) (unknown) (no date) (unknown) (unknown) Allergies (units unknown) (unknown) (unknown) (no date) (unknown) (unknown) [place] [address] (units unknown) (unknown) (unknown) (no date) (unknown) (unknown) Anemia (units unknown) (unknown) (unknown) (no date) (unknown) (unknown) Appearance: gr ossly normal (units unknown) (unknown) (unknown) (no date) (unknown) (unknown) Arthritis (units unknown) (unknown) (unknown) (no date) (unknown) (unknown) Attending Dr: Mamadou Bustamante MD (units unknown) (unknown) (unknown) (no date) (unknown) (unknown) Attitude: cooperative (units unknown) (unknown) (unknown) (no date) (unknown) (unknown) BMI 21.1 (units unknown) (unknown) (unknown) (no date) (unknown) (unknown) BP 134/68 (units unknown) (unknown) (unknown) (no date) (unknown) (unknown) Blood Pressure Location Rt brachial (units unknown) (unknown) (unknown) (no date) (unknown) (unknown) Breast cancer (units unknown) (unknown) (unknown) (no date) (unknown) (unknown) Brother Deceas ed Diabetes mellitus (units unknown) (unknown) (unknown) (no date) (unknown) (unknown) Brother Deceas ed Heart disease (units unknown) (unknown) (unknown) (no date) (unknown) (unknown) Chief Complaint (uni ts unknown) (unknown) (unknown) (no date) (unknown) (unknown) Chief Complain t: Pessary check (units unknown) (unknown) (unknown) (no date) (unknown) (unknown) Confirmed 02/12/23] (units unknown) (unknown) (unknown) (no date) (unknown) (unknown) Conjunctivae: conjunctivae normal (units unknown) (unknown) (unknown) (no date) (unknown) (unknown) Const (units unknown) (unknown) (unknown) (no date) (unknown) (unknown) DAILY 07/25/22 [History Confirmed 02/12/23] (units unknown) (unknown) (unknown) (no date) (unknown) (unknown) : 7 Acct:[id number] (units unknown) (unknown) (unknown) (no date) (unknown) (unknown) Degenerative l umbar spinal stenosis (units unknown) (unknown) (unknown) (no date) (unknown) (unknown) Dept at . (units unknown) (unknown) (unknown) (no date) (unknown) (unknown) Details: (units unknown) (unknown) (unknown) (no date) (unknown) (unknown) Diabetes mellitus (u nits unknown) (unknown) (unknown) (no date) (unknown) (unknown) Documented By: Mamadou Bustamante MD 02/12/23 1051 (units unknown) (unknown) (unknown) (no date) (unknown) (unknown) Draft (units unknown) (unknown) (unknown) (no date) (unknown) (unknown) EOM: EOM intac t bilaterally (units unknown) (unknown) (unknown) (no date) (unknown) (unknown) Ears: hearing grossly normal bilaterally (units unknown) (unknown) (unknown) (no date) (unknown) (unknown) Effort + Inspection: normal respiratory effort and able to speak in complete (units unknown) (unknown) (unknown) (no date) (unknown) (unknown) Estradiol pear ls 10 mcg vaginal 2XW #30 supp 02/08/22 [Rx Confirmed 02/12/23] (units unknown) (unknown) (unknown) (no date) (unknown) (unknown) Exam (units unknown) (unknown) (unknown) (no date) (unknown) (unknown) External Femal e Exam: normal external appearance (Normal for age and parity) and (units unknown) (unknown) (unknown) (no date) (unknown) (unknown) Eyes (units unknown) (unknown) (unknown) (no date) (unknown) (unknown) Face and sinus : face symmetric (units unknown) (unknown) (unknown) (no date) (unknown) (unknown) Family History (units unknown) (unknown) (unknown) (no date) (unknown) (unknown) Father d Osteoporosis (units unknown) (unknown) (unknown) (no date) (unknown) (unknown) [facility] (units unknown) (unknown) (unknown) (no date) (unknown) (unknown) Flexhaler) 1 inhalation inhalation DAILY 12/29/19 [History Confirmed 02/12/23] (units unknown) (unknown) (unknown) (no date) (unknown) (unknown) (units unknown) (unknown) (unknown) (no date) (unknown) (unknown) General: appea [place]ia [place] ros[place] normal, both eyes and all related structures (units unknown) (unknown) (unknown) (no date) (unknown) (unknown) General: cooperative, comfortable and no acute distress (units unknown) (unknown) (unknown) (no date) (unknown) (unknown) Gynecology Visit (un its unknown) (unknown) (unknown) (no date) (unknown) (unknown) HENMT (units unknown) (unknown) (unknown) (no date) (unknown) (unknown) HPI (units unknown) (unknown) (unknown) (no date) (unknown) (unknown) Head: normal t o inspection, normocephalic and atraumatic (units unknown) (unknown) (unknown) (no date) (unknown) (unknown) Headache (units unknown) (unknown) (unknown) (no date) (unknown) (unknown) Height 5 ft 0.5 in ( units unknown) (unknown) (unknown) (no date) (unknown) (unknown) History of car pal tunnel repair (units unknown) (unknown) (unknown) (no date) (unknown) (unknown) History of sin us surgery (units unknown) (unknown) (unknown) (no date) (unknown) (unknown) History of spi nal fusion (units unknown) (unknown) (unknown) (no date) (unknown) (unknown) History of tonsillectomy (units unknown) (unknown) (unknown) (no date) (unknown) (unknown) IV .q6mo 07/25 [History Confirmed 02/12/23] (units unknown) (unknown) (unknown) (no date) (unknown) (unknown) Intake Note: (units unknown) (unknown) (unknown) (no date) (unknown) (unknown) Intake (units unknown) (unknown) (unknown) (no date) (unknown) (unknown) Judgment: judg ment good (units unknown) (unknown) (unknown) (no date) (unknown) (unknown) Last Menstural Cycle + Details (units unknown) (unknown) (unknown) (no date) (unknown) (unknown) Loc: [facility] (units unknown) (unknown) (unknown) (no date) (unknown) (unknown) Medical Histor y (units unknown) (unknown) (unknown) (no date) (unknown) (unknown) Medications (units unknown) (unknown) (unknown) (no date) (unknown) (unknown) Mental Status: mental status grossly normal (units unknown) (unknown) (unknown) (no date) (unknown) (unknown) Mood: congruen t mood (units unknown) (unknown) (unknown) (no date) (unknown) (unknown) Mother d Heart disease (units unknown) (unknown) (unknown) (no date) (unknown) (unknown) Theresa returns for her pessary check today and is doing reasonably well. She has (units unknown) (unknown) (unknown) (no date) (unknown) (unknown) NAUSEA/ PASSED OUT ( units unknown) (unknown) (unknown) (no date) (unknown) (unknown) Neck (units unknown) (unknown) (unknown) (no date) (unknown) (unknown) Neck: normal v isual inspection (units unknown) (unknown) (unknown) (no date) (unknown) (unknown) Nutritional Appearance: average body habitus (units unknown) (unknown) (unknown) (no date) (unknown) (unknown) OB/External + Speculum: No vaginal bleeding (units unknown) (unknown) (unknown) (no date) (unknown) (unknown) Orientation: a lert and oriented x3 (units unknown) (unknown) (unknown) (no date) (unknown) (unknown) Other Menstrua l Period: Postmenopausal (units unknown) (unknown) (unknown) (no date) (unknown) (unknown) Oxygen Deliver y Method room air (units unknown) (unknown) (unknown) (no date) (unknown) (unknown) PFSH (units unknown) (unknown) (unknown) (no date) (unknown) (unknown) Patient: Theresa Rodriguez MR#: [id number] (units unknown) (unknown) (unknown) (no date) (unknown) (unknown) Pessary maintenance (units unknown) (unknown) (unknown) (no date) (unknown) (unknown) Position Sitting (un its unknown) (unknown) (unknown) (no date) (unknown) (unknown) Problem-specif ic ROS positives included with the HPI (units unknown) (unknown) (unknown) (no date) (unknown) (unknown) Psych (units unknown) (unknown) (unknown) (no date) (unknown) (unknown) Pt is here for a pessary check. States she has been having some pink tinged (units unknown) (unknown) (unknown) (no date) (unknown) (unknown) Pulse 60 (units unknown) (unknown) (unknown) (no date) (unknown) (unknown) Pulse Oximetry (%) 96 (units unknown) (unknown) (unknown) (no date) (unknown) (unknown) Pulse Source Monitor (units unknown) (unknown) (unknown) (no date) (unknown) (unknown) ROS Narrative (units unknown) (unknown) (unknown) (no date) (unknown) (unknown) ROS Narrative: (unit s unknown) (unknown) (unknown) (no date) (unknown) (unknown) ROS (units unknown) (unknown) (unknown) (no date) (unknown) (unknown) Reason For Visit (un its unknown) (unknown) (unknown) (no date) (unknown) (unknown) Regular) 2 ea PO DAILY ##0 01/10/18 [History Confirmed 02/12/23] (units unknown) (unknown) (unknown) (no date) (unknown) (unknown) Resp (units unknown) (unknown) (unknown) (no date) (unknown) (unknown) Sclera: sclera e normal (units unknown) (unknown) (unknown) (no date) (unknown) (unknown) Signed By: (units unknown) (unknown) (unknown) (no date) (unknown) (unknown) Smoking Status : Never smoker (units unknown) (unknown) (unknown) (no date) (unknown) (unknown) Social History (unit s unknown) (unknown) (unknown) (no date) (unknown) (unknown) Speculum Exam - Vagina: vagina atrophic, no lesions and No vaginal bleeding (units unknown) (unknown) (unknown) (no date) (unknown) (unknown) Speculum Exam: no vaginal bleeding (units unknown) (unknown) (unknown) (no date) (unknown) (unknown) Speech and Movement: speech and movement normal (units unknown) (unknown) (unknown) (no date) (unknown) (unknown) Status post epidural steroid injection (04/15/18) (units unknown) (unknown) (unknown) (no date) (unknown) (unknown) Stroke (units unknown) (unknown) (unknown) (no date) (unknown) (unknown) Surgical Histo ry (units unknown) (unknown) (unknown) (no date) (unknown) (unknown) This note may have been all or partially generated using voice recognition (units unknown) (unknown) (unknown) (no date) (unknown) (unknown) Thought Conten t: normal (units unknown) (unknown) (unknown) (no date) (unknown) (unknown) Thought Proces s: normal (units unknown) (unknown) (unknown) (no date) (unknown) (unknown) Tobacco + Subs tance Use (units unknown) (unknown) (unknown) (no date) (unknown) (unknown) Tobacco Status (unit s unknown) (unknown) (unknown) (no date) (unknown) (unknown) Vaginal prolapse (un its unknown) (unknown) (unknown) (no date) (unknown) (unknown) Visit Reasons: Pessary Check (units unknown) (unknown) (unknown) (no date) (unknown) (unknown) Vitals (units unknown) (unknown) (unknown) (no date) (unknown) (unknown) Weight 110 lb (units unknown) (unknown) (unknown) (no date) (unknown) (unknown) [History Confi rmed 02/12/23] (units unknown) (unknown) (unknown) (no date) (unknown) (unknown) a little bit o f bulging at the vaginal introitus. She was reassured that that (units unknown) (unknown) (unknown) (no date) (unknown) (unknown) alcohol intake : never (units unknown) (unknown) (unknown) (no date) (unknown) (unknown) ascorbic acid (vitamin C) 500 mg tablet 500 mg PO QDAY ##0 01/10/18 [History (units unknown) (unknown) (unknown) (no date) (unknown) (unknown) aspirin 81 mg tablet,delayed release (Adult Aspirin Regimen) 81 mg PO DAILY (units unknown) (unknown) (unknown) (no date) (unknown) (unknown) atorvastatin 4 0 mg tablet 40 mg PO DAILY 11/06/21 [History Confirmed 02/12/23] (units unknown) (unknown) (unknown) (no date) (unknown) (unknown) budesonide 180 mcg/actuation breath activated powder inhaler (Pulmicort (units unknown) (unknown) (unknown) (no date) (unknown) (unknown) calcitonin (sa lmon) 200 unit/actuation nasal spray 1 spray intranasal (ALT) (units unknown) (unknown) (unknown) (no date) (unknown) (unknown) calcium citrat e 250 mg calcium-vitamin D3 5 mcg (200 unit) tablet (Citracal (units unknown) (unknown) (unknown) (no date) (unknown) (unknown) come down. (units unknown) (unknown) (unknown) (no date) (unknown) (unknown) cyanocobalamin (vitamin B-12) 500 mcg lozenges (Vitamin B-12) 500 mcg PO DAILY (units unknown) (unknown) (unknown) (no date) (unknown) (unknown) discharge and feels like the pessary is still allowing her uterus and bladder to (units unknown) (unknown) (unknown) (no date) (unknown) (unknown) docusate sodiu m 100 mg tablet 100 mg PO BID #30 tabs 11/09/21 [Rx Confirmed (units unknown) (unknown) (unknown) (no date) (unknown) (unknown) have occurred. If there are any questions, please contact the Medical Records (units unknown) (unknown) (unknown) (no date) (unknown) (unknown) household memb ers: spouse (units unknown) (unknown) (unknown) (no date) (unknown) (unknown) is not unexpected. ( units unknown) (unknown) (unknown) (no date) (unknown) (unknown) magnesium oxid e 400 mg PO DAILY ##0 01/10/18 [History Confirmed 02/12/23] (units unknown) (unknown) (unknown) (no date) (unknown) (unknown) may occur. Occasional wrong-word or 'sound-alike' substitutions may have (units unknown) (unknown) (unknown) (no date) (unknown) (unknown) metoprolol succinate 25 mg tablet,extended release 24 hr 25 mg PO DAILY 12/29/19 (units unknown) (unknown) (unknown) (no date) (unknown) (unknown) multivitamin (Multiple Vitamins tablet) 1 tab PO QDAY ##0 01/10/18 [History (units unknown) (unknown) (unknown) (no date) (unknown) (unknown) no lesions (units unknown) (unknown) (unknown) (no date) (unknown) (unknown) noticed some discharge but otherwise has no discomfort with the pessary. She (units unknown) (unknown) (unknown) (no date) (unknown) (unknown) occurred due t o the inherent limitations of voice recognition software. Please (units unknown) (unknown) (unknown) (no date) (unknown) (unknown) omeprazole 20 mg capsule,delayed release 20 mg PO QDAY@0600 ##0 01/10/18 (units unknown) (unknown) (unknown) (no date) (unknown) (unknown) pramipexole [F rom MIRAPEX] Allergy (Severe, Verified 02/12/23 11:02) (units unknown) (unknown) (unknown) (no date) (unknown) (unknown) read the note carefully and recognize, using context, where these substitutions (units unknown) (unknown) (unknown) (no date) (unknown) (unknown) sentences (units unknown) (unknown) (unknown) (no date) (unknown) (unknown) software. 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 (units unknown) (unknown) (unknown) (no date) (unknown) (unknown) states that sh e is not expelled the pessary but occasionally she does experience (units unknown) (unknown) (unknown) (no date) (unknown) (unknown) warfarin 3 mg tablet 3 mg PO DAILY 02/12/19 [History Confirmed 02/12/23] (units unknown) (unknown) (unknown) (no date) (unknown) (unknown) zoledronic aci d 5 mg/100 mL in mannitol 5 %-water intravenous piggybck (Reclast) (units unknown) (unknown) Result panel 4 (unknown) (no date) (unknown) (unknown) (no value) (units unknown) (unknown) (unknown) (no date) (unknown) (unknown) ##0 01/10/18 [History Confirmed 02/12/23] (units unknown) (unknown) (unknown) (no date) (unknown) (unknown) (1) 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: (units unknown) (unknown) (unknown) (no date) (unknown) (unknown) (2) Pessary maintenance: (units unknown) (unknown) (unknown) (no date) (unknown) (unknown) 02/12/23 1307 (units unknown) (unknown) (unknown) (no date) (unknown) (unknown) 02/12/23 (units unknown) (unknown) (unknown) (no date) (unknown) (unknown) 02/12/23] (units unknown) (unknown) (unknown) (no date) (unknown) (unknown) 04/18/21 [Hist ory Confirmed 02/12/23] (units unknown) (unknown) (unknown) (no date) (unknown) (unknown) 11:02 (units unknown) (unknown) (unknown) (no date) (unknown) (unknown) [id number] (units unknown) (unknown) (unknown) (no date) (unknown) (unknown) Affect: normal affect (units unknown) (unknown) (unknown) (no date) (unknown) (unknown) Age related osteoporosis (units unknown) (unknown) (unknown) (no date) (unknown) (unknown) Age/Sex: 87 / F Date of Service: (units unknown) (unknown) (unknown) (no date) (unknown) (unknown) Allergies (units unknown) (unknown) (unknown) (no date) (unknown) (unknown) [place] [address] (units unknown) (unknown) (unknown) (no date) (unknown) (unknown) Anemia (units unknown) (unknown) (unknown) (no date) (unknown) (unknown) Appearance: gr ossly normal (units unknown) (unknown) (unknown) (no date) (unknown) (unknown) Arthritis (units unknown) (unknown) (unknown) (no date) (unknown) (unknown) Assessment + Plan (u nits unknown) (unknown) (unknown) (no date) (unknown) (unknown) Attending Dr: Mamadou Bustamante MD (units unknown) (unknown) (unknown) (no date) (unknown) (unknown) Attitude: cooperative (units unknown) (unknown) (unknown) (no date) (unknown) (unknown) BMI 21.1 (units unknown) (unknown) (unknown) (no date) (unknown) (unknown) BP 134/68 (units unknown) (unknown) (unknown) (no date) (unknown) (unknown) Bimanual Exam- Adnexa, other: enterocele, cystocele and vaginal apex descent (units unknown) (unknown) (unknown) (no date) (unknown) (unknown) Blood Pressure Location Rt brachial (units unknown) (unknown) (unknown) (no date) (unknown) (unknown) Breast cancer (units unknown) (unknown) (unknown) (no date) (unknown) (unknown) Brother Deceas ed Diabetes mellitus (units unknown) (unknown) (unknown) (no date) (unknown) (unknown) Brother Deceas ed Heart disease (units unknown) (unknown) (unknown) (no date) (unknown) (unknown) Chief Complaint (uni ts unknown) (unknown) (unknown) (no date) (unknown) (unknown) Chief Complain t: Pessary check (units unknown) (unknown) (unknown) (no date) (unknown) (unknown) Confirmed 02/12/23] (units unknown) (unknown) (unknown) (no date) (unknown) (unknown) Conjunctivae: conjunctivae normal (units unknown) (unknown) (unknown) (no date) (unknown) (unknown) Const (units unknown) (unknown) (unknown) (no date) (unknown) (unknown) 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 (units unknown) (unknown) (unknown) (no date) (unknown) (unknown) Details: (units unknown) (unknown) (unknown) (no date) (unknown) (unknown) Diabetes mellitus (u nits unknown) (unknown) (unknown) (no date) (unknown) (unknown) Documented By: Mamadou Bustamante MD 02/12/23 1051 (units unknown) (unknown) (unknown) (no date) (unknown) (unknown) Documenting clinical information in EHR/Medical record: 5 (units unknown) (unknown) (unknown) (no date) (unknown) (unknown) EOM: EOM intac t bilaterally (units unknown) (unknown) (unknown) (no date) (unknown) (unknown) Ears: hearing grossly normal bilaterally (units unknown) (unknown) (unknown) (no date) (unknown) (unknown) Effort + Inspection: normal respiratory effort and able to speak in complete (units unknown) (unknown) (unknown) (no date) (unknown) (unknown) Estradiol pear ls 10 mcg vaginal 2XW #30 supp 02/08/22 [Rx Confirmed 02/12/23] (units unknown) (unknown) (unknown) (no date) (unknown) (unknown) Exam (units unknown) (unknown) (unknown) (no date) (unknown) (unknown) External Femal e Exam: normal external appearance (Normal for age and parity) and (units unknown) (unknown) (unknown) (no date) (unknown) (unknown) Eyes (units unknown) (unknown) (unknown) (no date) (unknown) (unknown) Face and sinus : face symmetric (units unknown) (unknown) (unknown) (no date) (unknown) (unknown) Family History (units unknown) (unknown) (unknown) (no date) (unknown) (unknown) Father d Osteoporosis (units unknown) (unknown) (unknown) (no date) (unknown) (unknown) [facility] (units unknown) (unknown) (unknown) (no date) (unknown) (unknown) Flexhaler) 1 inhalation inhalation DAILY 12/29/19 [History Confirmed 02/12/23] (units unknown) (unknown) (unknown) (no date) (unknown) (unknown) Follow-up will be in 2 months or as needed. (units unknown) (unknown) (unknown) (no date) (unknown) (unknown) (units unknown) (unknown) (unknown) (no date) (unknown) (unknown) Gehrung pessar y removed, cleaned, and replaced. (units unknown) (unknown) (unknown) (no date) (unknown) (unknown) General: appea [place]ia [place] ros[place] normal, both eyes and all related structures (units unknown) (unknown) (unknown) (no date) (unknown) (unknown) General: cooperative, comfortable and no acute distress (units unknown) (unknown) (unknown) (no date) (unknown) (unknown) Gynecology Visit (un its unknown) (unknown) (unknown) (no date) (unknown) (unknown) HENMT (units unknown) (unknown) (unknown) (no date) (unknown) (unknown) HPI (units unknown) (unknown) (unknown) (no date) (unknown) (unknown) Head: normal t o inspection, normocephalic and atraumatic (units unknown) (unknown) (unknown) (no date) (unknown) (unknown) Headache (units unknown) (unknown) (unknown) (no date) (unknown) (unknown) Height 5 ft 0.5 in ( units unknown) (unknown) (unknown) (no date) (unknown) (unknown) History of car pal tunnel repair (units unknown) (unknown) (unknown) (no date) (unknown) (unknown) History of sin us surgery (units unknown) (unknown) (unknown) (no date) (unknown) (unknown) History of spi nal fusion (units unknown) (unknown) (unknown) (no date) (unknown) (unknown) History of tonsillectomy (units unknown) (unknown) (unknown) (no date) (unknown) (unknown) IV .q6mo 07/25 [History Confirmed 02/12/23] (units unknown) (unknown) (unknown) (no date) (unknown) (unknown) Intake Note: (units unknown) (unknown) (unknown) (no date) (unknown) (unknown) Intake (units unknown) (unknown) (unknown) (no date) (unknown) (unknown) Judgment: judg ment good (units unknown) (unknown) (unknown) (no date) (unknown) (unknown) Last Menstural Cycle + Details (units unknown) (unknown) (unknown) (no date) (unknown) (unknown) Loc: [facility] (units unknown) (unknown) (unknown) (no date) (unknown) (unknown) Medical Histor y (units unknown) (unknown) (unknown) (no date) (unknown) (unknown) Medications (units unknown) (unknown) (unknown) (no date) (unknown) (unknown) Mental Status: mental status grossly normal (units unknown) (unknown) (unknown) (no date) (unknown) (unknown) Mood: congruen t mood (units unknown) (unknown) (unknown) (no date) (unknown) (unknown) Mother d Heart disease (units unknown) (unknown) (unknown) (no date) (unknown) (unknown) Theresa returns for her pessary check today and is doing reasonably well. She has (units unknown) (unknown) (unknown) (no date) (unknown) (unknown) NAUSEA/ PASSED OUT ( units unknown) (unknown) (unknown) (no date) (unknown) (unknown) Neck (units unknown) (unknown) (unknown) (no date) (unknown) (unknown) Neck: normal v isual inspection (units unknown) (unknown) (unknown) (no date) (unknown) (unknown) Nutritional Appearance: average body habitus (units unknown) (unknown) (unknown) (no date) (unknown) (unknown) OB/External + Speculum: No vaginal bleeding (units unknown) (unknown) (unknown) (no date) (unknown) (unknown) Obtaining and/ or reviewing separately obtained history: 5 (units unknown) (unknown) (unknown) (no date) (unknown) (unknown) Orientation: a lert and oriented x3 (units unknown) (unknown) (unknown) (no date) (unknown) (unknown) Other Menstrua l Period: Postmenopausal (units unknown) (unknown) (unknown) (no date) (unknown) (unknown) Oxygen Deliver y Method room air (units unknown) (unknown) (unknown) (no date) (unknown) (unknown) PFSH (units unknown) (unknown) (unknown) (no date) (unknown) (unknown) Patient will r esume use of Trimo-Marsh jelly at least once weekly. (units unknown) (unknown) (unknown) (no date) (unknown) (unknown) Patient: Theresa Rodriguez MR#: [id number] (units unknown) (unknown) (unknown) (no date) (unknown) (unknown) Pelvic Support : cystocele, enterocele and vaginal apex descent (units unknown) (unknown) (unknown) (no date) (unknown) (unknown) Performing a medically appropriate exam and/or evaluation: 5 (units unknown) (unknown) (unknown) (no date) (unknown) (unknown) Pessary maintenance (units unknown) (unknown) (unknown) (no date) (unknown) (unknown) Plan (units unknown) (unknown) (unknown) (no date) (unknown) (unknown) Position Sitting (un its unknown) (unknown) (unknown) (no date) (unknown) (unknown) Preparing to s ee the patient, i.e., chart review, review of tests: 5 (units unknown) (unknown) (unknown) (no date) (unknown) (unknown) Problem-specif ic ROS positives included with the HPI (units unknown) (unknown) (unknown) (no date) (unknown) (unknown) Psych (units unknown) (unknown) (unknown) (no date) (unknown) (unknown) Pt is here for a pessary check. States she has been having some pink tinged (units unknown) (unknown) (unknown) (no date) (unknown) (unknown) Pulse 60 (units unknown) (unknown) (unknown) (no date) (unknown) (unknown) Pulse Oximetry (%) 96 (units unknown) (unknown) (unknown) (no date) (unknown) (unknown) Pulse Source Monitor (units unknown) (unknown) (unknown) (no date) (unknown) (unknown) ROS Narrative (units unknown) (unknown) (unknown) (no date) (unknown) (unknown) ROS Narrative: (unit s unknown) (unknown) (unknown) (no date) (unknown) (unknown) ROS (units unknown) (unknown) (unknown) (no date) (unknown) (unknown) Reason For Visit (un its unknown) (unknown) (unknown) (no date) (unknown) (unknown) Regular) 2 ea PO DAILY ##0 01/10/18 [History Confirmed 02/12/23] (units unknown) (unknown) (unknown) (no date) (unknown) (unknown) Resp (units unknown) (unknown) (unknown) (no date) (unknown) (unknown) Sclera: sclera e normal (units unknown) (unknown) (unknown) (no date) (unknown) (unknown) Signed By: <Electronically signed by Mamadou Bustamante MD> (units unknown) (unknown) (unknown) (no date) (unknown) (unknown) Signed (units unknown) (unknown) (unknown) (no date) (unknown) (unknown) Smoking Status : Never smoker (units unknown) (unknown) (unknown) (no date) (unknown) (unknown) Social History (unit s unknown) (unknown) (unknown) (no date) (unknown) (unknown) Speculum Exam - Vagina: vagina atrophic, no lesions and No vaginal bleeding (units unknown) (unknown) (unknown) (no date) (unknown) (unknown) Speculum Exam: no vaginal bleeding (units unknown) (unknown) (unknown) (no date) (unknown) (unknown) Speech and Movement: speech and movement normal (units unknown) (unknown) (unknown) (no date) (unknown) (unknown) Status post epidural steroid injection (04/15/18) (units unknown) (unknown) (unknown) (no date) (unknown) (unknown) Status: Acute (units unknown) (unknown) (unknown) (no date) (unknown) (unknown) Stroke (units unknown) (unknown) (unknown) (no date) (unknown) (unknown) Surgical Histo ry (units unknown) (unknown) (unknown) (no date) (unknown) (unknown) This note may have been all or partially generated using voice recognition (units unknown) (unknown) (unknown) (no date) (unknown) (unknown) Thought Conten t: normal (units unknown) (unknown) (unknown) (no date) (unknown) (unknown) Thought Proces s: normal (units unknown) (unknown) (unknown) (no date) (unknown) (unknown) Time Coding Mi nutes Spent: (must be on same date of service/appointment ) (units unknown) (unknown) (unknown) (no date) (unknown) (unknown) Time Spent (units unknown) (unknown) (unknown) (no date) (unknown) (unknown) Tobacco + Subs tance Use (units unknown) (unknown) (unknown) (no date) (unknown) (unknown) Tobacco Status (unit s unknown) (unknown) (unknown) (no date) (unknown) (unknown) Total Time: 25 (unit s unknown) (unknown) (unknown) (no date) (unknown) (unknown) Vaginal prolapse (un its unknown) (unknown) (unknown) (no date) (unknown) (unknown) Visit Reasons: Pessary Check (units unknown) (unknown) (unknown) (no date) (unknown) (unknown) Vitals (units unknown) (unknown) (unknown) (no date) (unknown) (unknown) Weight 110 lb (units unknown) (unknown) (unknown) (no date) (unknown) (unknown) [History Confi rmed 02/12/23] (units unknown) (unknown) (unknown) (no date) (unknown) (unknown) a little bit o f bulging at the vaginal introitus. She was reassured that that (units unknown) (unknown) (unknown) (no date) (unknown) (unknown) alcohol intake : never (units unknown) (unknown) (unknown) (no date) (unknown) (unknown) ascorbic acid (vitamin C) 500 mg tablet 500 mg PO QDAY ##0 01/10/18 [History (units unknown) (unknown) (unknown) (no date) (unknown) (unknown) aspirin 81 mg tablet,delayed release (Adult Aspirin Regimen) 81 mg PO DAILY (units unknown) (unknown) (unknown) (no date) (unknown) (unknown) atorvastatin 4 0 mg tablet 40 mg PO DAILY 11/06/21 [History Confirmed 02/12/23] (units unknown) (unknown) (unknown) (no date) (unknown) (unknown) ay occur. Occasional wrong-word or 'sound-alike' substitutions may have (units unknown) (unknown) (unknown) (no date) (unknown) (unknown) budesonide 180 mcg/actuation breath activated powder inhaler (Pulmicort (units unknown) (unknown) (unknown) (no date) (unknown) (unknown) calcitonin (sa lmon) 200 unit/actuation nasal spray 1 spray intranasal (ALT) (units unknown) (unknown) (unknown) (no date) (unknown) (unknown) calcium citrat e 250 mg calcium-vitamin D3 5 mcg (200 unit) tablet (Citracal (units unknown) (unknown) (unknown) (no date) (unknown) (unknown) come down. (units unknown) (unknown) (unknown) (no date) (unknown) (unknown) cyanocobalamin (vitamin B-12) 500 mcg lozenges (Vitamin B-12) 500 mcg PO DAILY (units unknown) (unknown) (unknown) (no date) (unknown) (unknown) discharge and feels like the pessary is still allowing her uterus and bladder to (units unknown) (unknown) (unknown) (no date) (unknown) (unknown) docusate sodiu m 100 mg tablet 100 mg PO BID #30 tabs 11/09/21 [Rx Confirmed (units unknown) (unknown) (unknown) (no date) (unknown) (unknown) have occurred. If there are any questions, please contact the Medical Records (units unknown) (unknown) (unknown) (no date) (unknown) (unknown) household memb ers: spouse (units unknown) (unknown) (unknown) (no date) (unknown) (unknown) is not unexpected. ( units unknown) (unknown) (unknown) (no date) (unknown) (unknown) magnesium oxid e 400 mg PO DAILY ##0 01/10/18 [History Confirmed 02/12/23] (units unknown) (unknown) (unknown) (no date) (unknown) (unknown) metoprolol succinate 25 mg tablet,extended release 24 hr 25 mg PO DAILY 12/29/19 (units unknown) (unknown) (unknown) (no date) (unknown) (unknown) multivitamin (Multiple Vitamins tablet) 1 tab PO QDAY ##0 01/10/18 [History (units unknown) (unknown) (unknown) (no date) (unknown) (unknown) no lesions (units unknown) (unknown) (unknown) (no date) (unknown) (unknown) noticed some discharge but otherwise has no discomfort with the pessary. She (units unknown) (unknown) (unknown) (no date) (unknown) (unknown) occurred due t o the inherent limitations of voice recognition software. Please (units unknown) (unknown) (unknown) (no date) (unknown) (unknown) omeprazole 20 mg capsule,delayed release 20 mg PO QDAY@0600 ##0 01/10/18 (units unknown) (unknown) (unknown) (no date) (unknown) (unknown) pramipexole [F rom MIRAPEX] Allergy (Severe, Verified 02/12/23 11:02) (units unknown) (unknown) (unknown) (no date) (unknown) (unknown) read the note carefully and recognize, using context, where these substitutions (units unknown) (unknown) (unknown) (no date) (unknown) (unknown) sentences (units unknown) (unknown) (unknown) (no date) (unknown) (unknown) software. 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 (units unknown) (unknown) (unknown) (no date) (unknown) (unknown) states that sh e is not expelled the pessary but occasionally she does experience (units unknown) (unknown) (unknown) (no date) (unknown) (unknown) warfarin 3 mg tablet 3 mg PO DAILY 02/12/19 [History Confirmed 02/12/23] (units unknown) (unknown) (unknown) (no date) (unknown) (unknown) zoledronic aci d 5 mg/100 mL in mannitol 5 %-water intravenous piggybck (Reclast) (units unknown) (unknown) Result panel 5 (unknown) (no date) (unknown) (unknown) (no value) (units unknown) (unknown) (unknown) (no date) (unknown) (unknown) ##0 01/10/18 [History Confirmed 02/14/23] (units unknown) (unknown) (unknown) (no date) (unknown) (unknown) 02/14/23 (units unknown) (unknown) (unknown) (no date) (unknown) (unknown) 02/14/23] (units unknown) (unknown) (unknown) (no date) (unknown) (unknown) 04/18/21 [Hist ory Confirmed 02/14/23] (units unknown) (unknown) (unknown) (no date) (unknown) (unknown) 12:02 (units unknown) (unknown) (unknown) (no date) (unknown) (unknown) [id number] (units unknown) (unknown) (unknown) (no date) (unknown) (unknown) Age related osteoporosis (units unknown) (unknown) (unknown) (no date) (unknown) (unknown) Age/Sex: 87 / F Date of Service: (units unknown) (unknown) (unknown) (no date) (unknown) (unknown) Allergies (units unknown) (unknown) (unknown) (no date) (unknown) (unknown) [place] [address] (units unknown) (unknown) (unknown) (no date) (unknown) (unknown) Anemia (units unknown) (unknown) (unknown) (no date) (unknown) (unknown) Arthritis (units unknown) (unknown) (unknown) (no date) (unknown) (unknown) Attending Dr: Mamadou Bustamante MD (units unknown) (unknown) (unknown) (no date) (unknown) (unknown) BMI 21.1 (units unknown) (unknown) (unknown) (no date) (unknown) (unknown) BP 132/84 (units unknown) (unknown) (unknown) (no date) (unknown) (unknown) Blood Pressure Location Rt brachial (units unknown) (unknown) (unknown) (no date) (unknown) (unknown) Breast cancer (units unknown) (unknown) (unknown) (no date) (unknown) (unknown) Brother Deceas ed Diabetes mellitus (units unknown) (unknown) (unknown) (no date) (unknown) (unknown) Brother Deceas ed Heart disease (units unknown) (unknown) (unknown) (no date) (unknown) (unknown) Confirmed 02/14/23] (units unknown) (unknown) (unknown) (no date) (unknown) (unknown) DAILY 07/25/22 [History Confirmed 02/14/23] (units unknown) (unknown) (unknown) (no date) (unknown) (unknown) : 7 Acct:[id number] (units unknown) (unknown) (unknown) (no date) (unknown) (unknown) Degenerative l umbar spinal stenosis (units unknown) (unknown) (unknown) (no date) (unknown) (unknown) Dept at . (units unknown) (unknown) (unknown) (no date) (unknown) (unknown) Diabetes mellitus (u nits unknown) (unknown) (unknown) (no date) (unknown) (unknown) Documented By: Mamadou Bustamante MD 02/14/23 1200 (units unknown) (unknown) (unknown) (no date) (unknown) (unknown) Draft (units unknown) (unknown) (unknown) (no date) (unknown) (unknown) Estradiol pear ls 10 mcg vaginal 2XW #30 supp 02/08/22 [Rx Confirmed 02/14/23] (units unknown) (unknown) (unknown) (no date) (unknown) (unknown) Family History (units unknown) (unknown) (unknown) (no date) (unknown) (unknown) Father d Osteoporosis (units unknown) (unknown) (unknown) (no date) (unknown) (unknown) [facility] (units unknown) (unknown) (unknown) (no date) (unknown) (unknown) Flexhaler) 1 inhalation inhalation DAILY 12/29/19 [History Confirmed 02/14/23] (units unknown) (unknown) (unknown) (no date) (unknown) (unknown) Gynecology Visit (un its unknown) (unknown) (unknown) (no date) (unknown) (unknown) Headache (units unknown) (unknown) (unknown) (no date) (unknown) (unknown) Height 5 ft 0.5 in ( units unknown) (unknown) (unknown) (no date) (unknown) (unknown) History of car pal tunnel repair (units unknown) (unknown) (unknown) (no date) (unknown) (unknown) History of sin us surgery (units unknown) (unknown) (unknown) (no date) (unknown) (unknown) History of spi nal fusion (units unknown) (unknown) (unknown) (no date) (unknown) (unknown) History of tonsillectomy (units unknown) (unknown) (unknown) (no date) (unknown) (unknown) IV .q6mo 07/25 [History Confirmed 02/14/23] (units unknown) (unknown) (unknown) (no date) (unknown) (unknown) Intake Note: (units unknown) (unknown) (unknown) (no date) (unknown) (unknown) Intake perform ed by: Brooke Gaines (units unknown) (unknown) (unknown) (no date) (unknown) (unknown) Intake (units unknown) (unknown) (unknown) (no date) (unknown) (unknown) Intake- Mohan gore Staff (units unknown) (unknown) (unknown) (no date) (unknown) (unknown) Last Menstural Cycle + Details (units unknown) (unknown) (unknown) (no date) (unknown) (unknown) Loc: [facility] (units unknown) (unknown) (unknown) (no date) (unknown) (unknown) Medical Histor y (units unknown) (unknown) (unknown) (no date) (unknown) (unknown) Medications (units unknown) (unknown) (unknown) (no date) (unknown) (unknown) Mother d Heart disease (units unknown) (unknown) (unknown) (no date) (unknown) (unknown) NAUSEA/ PASSED OUT ( units unknown) (unknown) (unknown) (no date) (unknown) (unknown) Other Menstrua l Period: Postmenopausal (units unknown) (unknown) (unknown) (no date) (unknown) (unknown) PFSH (units unknown) (unknown) (unknown) (no date) (unknown) (unknown) Patient: Theresa Rodriguez MR#: [id number] (units unknown) (unknown) (unknown) (no date) (unknown) (unknown) Pessary maintenance (units unknown) (unknown) (unknown) (no date) (unknown) (unknown) Position Sitting (un its unknown) (unknown) (unknown) (no date) (unknown) (unknown) Pt here for pe ssary check (units unknown) (unknown) (unknown) (no date) (unknown) (unknown) Reason For Visit (un its unknown) (unknown) (unknown) (no date) (unknown) (unknown) Regular) 2 ea PO DAILY ##0 01/10/18 [History Confirmed 02/14/23] (units unknown) (unknown) (unknown) (no date) (unknown) (unknown) Signed By: (units unknown) (unknown) (unknown) (no date) (unknown) (unknown) Smoking Status : Never smoker (units unknown) (unknown) (unknown) (no date) (unknown) (unknown) Social History (unit s unknown) (unknown) (unknown) (no date) (unknown) (unknown) Status post epidural steroid injection (04/15/18) (units unknown) (unknown) (unknown) (no date) (unknown) (unknown) Stroke (units unknown) (unknown) (unknown) (no date) (unknown) (unknown) Surgical Histo ry (units unknown) (unknown) (unknown) (no date) (unknown) (unknown) This note may have been all or partially generated using voice recognition (units unknown) (unknown) (unknown) (no date) (unknown) (unknown) Tobacco + Subs tance Use (units unknown) (unknown) (unknown) (no date) (unknown) (unknown) Tobacco Status (unit s unknown) (unknown) (unknown) (no date) (unknown) (unknown) Vaginal prolapse (un its unknown) (unknown) (unknown) (no date) (unknown) (unknown) Visit Reasons: Pessary out of place/causing pain (units unknown) (unknown) (unknown) (no date) (unknown) (unknown) Vitals (units unknown) (unknown) (unknown) (no date) (unknown) (unknown) Weight 110 lb (units unknown) (unknown) (unknown) (no date) (unknown) (unknown) [History Confi rmed 02/14/23] (units unknown) (unknown) (unknown) (no date) (unknown) (unknown) alcohol intake : never (units unknown) (unknown) (unknown) (no date) (unknown) (unknown) ascorbic acid (vitamin C) 500 mg tablet 500 mg PO QDAY ##0 01/10/18 [History (units unknown) (unknown) (unknown) (no date) (unknown) (unknown) aspirin 81 mg tablet,delayed release (Adult Aspirin Regimen) 81 mg PO DAILY (units unknown) (unknown) (unknown) (no date) (unknown) (unknown) atorvastatin 4 0 mg tablet 40 mg PO DAILY 11/06/21 [History Confirmed 02/14/23] (units unknown) (unknown) (unknown) (no date) (unknown) (unknown) brought it wit h her today for re-insert (units unknown) (unknown) (unknown) (no date) (unknown) (unknown) budesonide 180 mcg/actuation breath activated powder inhaler (Pulmicort (units unknown) (unknown) (unknown) (no date) (unknown) (unknown) calcitonin (sa lmon) 200 unit/actuation nasal spray 1 spray intranasal (ALT) (units unknown) (unknown) (unknown) (no date) (unknown) (unknown) calcium citrat e 250 mg calcium-vitamin D3 5 mcg (200 unit) tablet (Citracal (units unknown) (unknown) (unknown) (no date) (unknown) (unknown) cyanocobalamin (vitamin B-12) 500 mcg lozenges (Vitamin B-12) 500 mcg PO DAILY (units unknown) (unknown) (unknown) (no date) (unknown) (unknown) docusate sodiu m 100 mg tablet 100 mg PO BID #30 tabs 11/09/21 [Rx Confirmed (units unknown) (unknown) (unknown) (no date) (unknown) (unknown) have occurred. If there are any questions, please contact the Medical Records (units unknown) (unknown) (unknown) (no date) (unknown) (unknown) household memb ers: spouse (units unknown) (unknown) (unknown) (no date) (unknown) (unknown) magnesium oxid e 400 mg PO DAILY ##0 01/10/18 [History Confirmed 02/14/23] (units unknown) (unknown) (unknown) (no date) (unknown) (unknown) may occur. Occasional wrong-word or 'sound-alike' substitutions may have (units unknown) (unknown) (unknown) (no date) (unknown) (unknown) metoprolol succinate 25 mg tablet,extended release 24 hr 25 mg PO DAILY 12/29/19 (units unknown) (unknown) (unknown) (no date) (unknown) (unknown) multivitamin (Multiple Vitamins tablet) 1 tab PO QDAY ##0 01/10/18 [History (units unknown) (unknown) (unknown) (no date) (unknown) (unknown) occurred due t o the inherent limitations of voice recognition software. Please (units unknown) (unknown) (unknown) (no date) (unknown) (unknown) omeprazole 20 mg capsule,delayed release 20 mg PO QDAY@0600 ##0 01/10/18 (units unknown) (unknown) (unknown) (no date) (unknown) (unknown) place and was very uncomfortable/painf ul she removed pessary due to the pain and (units unknown) (unknown) (unknown) (no date) (unknown) (unknown) pramipexole [F rom MIRAPEX] Allergy (Severe, Verified 02/14/23 12:02) (units unknown) (unknown) (unknown) (no date) (unknown) (unknown) pt called yest ara saying it felt like her pessary was falling out or out of (units unknown) (unknown) (unknown) (no date) (unknown) (unknown) read the note carefully and recognize, using context, where these substitutions (units unknown) (unknown) (unknown) (no date) (unknown) (unknown) software. 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 (units unknown) (unknown) (unknown) (no date) (unknown) (unknown) warfarin 3 mg tablet 3 mg PO DAILY 02/12/19 [History Confirmed 02/14/23] (units unknown) (unknown) (unknown) (no date) (unknown) (unknown) zoledronic aci d 5 mg/100 mL in mannitol 5 %-water intravenous piggybck (Reclast) (units unknown) (unknown) Result panel 6 (unknown) (no date) (unknown) (unknown) (no value) (units unknown) (unknown) (unknown) (no date) (unknown) (unknown) ##0 01/10/18 [History Confirmed 02/14/23] (units unknown) (unknown) (unknown) (no date) (unknown) (unknown) (1) 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: (units unknown) (unknown) (unknown) (no date) (unknown) (unknown) (2) Vaginal prolapse: (units unknown) (unknown) (unknown) (no date) (unknown) (unknown) (3) Pessary maintenance: (units unknown) (unknown) (unknown) (no date) (unknown) (unknown) 02/14/23 1237 (units unknown) (unknown) (unknown) (no date) (unknown) (unknown) 02/14/23 (units unknown) (unknown) (unknown) (no date) (unknown) (unknown) 02/14/23] (units unknown) (unknown) (unknown) (no date) (unknown) (unknown) 04/18/21 [Hist ory Confirmed 02/14/23] (units unknown) (unknown) (unknown) (no date) (unknown) (unknown) 12:02 (units unknown) (unknown) (unknown) (no date) (unknown) (unknown) [id number] (units unknown) (unknown) (unknown) (no date) (unknown) (unknown) Affect: normal affect (units unknown) (unknown) (unknown) (no date) (unknown) (unknown) Age related osteoporosis (units unknown) (unknown) (unknown) (no date) (unknown) (unknown) Age/Sex: 87 / F Date of Service: (units unknown) (unknown) (unknown) (no date) (unknown) (unknown) Allergies (units unknown) (unknown) (unknown) (no date) (unknown) (unknown) [place] [address] (units unknown) (unknown) (unknown) (no date) (unknown) (unknown) Anemia (units unknown) (unknown) (unknown) (no date) (unknown) (unknown) Appearance: gr ossly normal (units unknown) (unknown) (unknown) (no date) (unknown) (unknown) Arthritis (units unknown) (unknown) (unknown) (no date) (unknown) (unknown) Assessment + Plan (u nits unknown) (unknown) (unknown) (no date) (unknown) (unknown) Attending Dr: Mamadou Bustamante MD (units unknown) (unknown) (unknown) (no date) (unknown) (unknown) Attitude: cooperative (units unknown) (unknown) (unknown) (no date) (unknown) (unknown) BMI 21.1 (units unknown) (unknown) (unknown) (no date) (unknown) (unknown) BP 132/84 (units unknown) (unknown) (unknown) (no date) (unknown) (unknown) Bimanual Exam- Adnexa, other: cystocele and vaginal apex descent (units unknown) (unknown) (unknown) (no date) (unknown) (unknown) Blood Pressure Location Rt brachial (units unknown) (unknown) (unknown) (no date) (unknown) (unknown) Breast cancer (units unknown) (unknown) (unknown) (no date) (unknown) (unknown) Brother Deceas ed Diabetes mellitus (units unknown) (unknown) (unknown) (no date) (unknown) (unknown) Brother Deceas ed Heart disease (units unknown) (unknown) (unknown) (no date) (unknown) (unknown) Chief Complaint (uni ts unknown) (unknown) (unknown) (no date) (unknown) (unknown) Chief Complain t: Pessary maintenance (units unknown) (unknown) (unknown) (no date) (unknown) (unknown) Confirmed 02/14/23] (units unknown) (unknown) (unknown) (no date) (unknown) (unknown) Conjunctivae: conjunctivae normal (units unknown) (unknown) (unknown) (no date) (unknown) (unknown) Const (units unknown) (unknown) (unknown) (no date) (unknown) (unknown) 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 (units unknown) (unknown) (unknown) (no date) (unknown) (unknown) Details: (units unknown) (unknown) (unknown) (no date) (unknown) (unknown) Diabetes mellitus (u nits unknown) (unknown) (unknown) (no date) (unknown) (unknown) Documented By: Mamadou Bustamante MD 02/14/23 1200 (units unknown) (unknown) (unknown) (no date) (unknown) (unknown) Documenting clinical information in EHR/Medical record: 5 (units unknown) (unknown) (unknown) (no date) (unknown) (unknown) EOM: EOM intac t bilaterally (units unknown) (unknown) (unknown) (no date) (unknown) (unknown) Ears: hearing grossly normal bilaterally (units unknown) (unknown) (unknown) (no date) (unknown) (unknown) Effort + Inspection: normal respiratory effort and able to speak in complete (units unknown) (unknown) (unknown) (no date) (unknown) (unknown) Estradiol pear ls 10 mcg vaginal 2XW #30 supp 02/08/22 [Rx Confirmed 02/14/23] (units unknown) (unknown) (unknown) (no date) (unknown) (unknown) Exam (units unknown) (unknown) (unknown) (no date) (unknown) (unknown) External Femal e Exam: normal external appearance (Normal for age and parity), no (units unknown) (unknown) (unknown) (no date) (unknown) (unknown) Eyes (units unknown) (unknown) (unknown) (no date) (unknown) (unknown) Face and sinus : face symmetric (units unknown) (unknown) (unknown) (no date) (unknown) (unknown) Family History (units unknown) (unknown) (unknown) (no date) (unknown) (unknown) Father d Osteoporosis (units unknown) (unknown) (unknown) (no date) (unknown) (unknown) [facility] (units unknown) (unknown) (unknown) (no date) (unknown) (unknown) Flexhaler) 1 inhalation inhalation DAILY 12/29/19 [History Confirmed 02/14/23] (units unknown) (unknown) (unknown) (no date) (unknown) (unknown) (units unknown) (unknown) (unknown) (no date) (unknown) (unknown) General: appea [place] normal, both eyes and all related structures (units unknown) (unknown) (unknown) (no date) (unknown) (unknown) General: cooperative, comfortable and no acute distress (units unknown) (unknown) (unknown) (no date) (unknown) (unknown) Gynecology Visit (un its unknown) (unknown) (unknown) (no date) (unknown) (unknown) HENMT (units unknown) (unknown) (unknown) (no date) (unknown) (unknown) HPI (units unknown) (unknown) (unknown) (no date) (unknown) (unknown) Head: normal t o inspection, normocephalic and atraumatic (units unknown) (unknown) (unknown) (no date) (unknown) (unknown) Headache (units unknown) (unknown) (unknown) (no date) (unknown) (unknown) Height 5 ft 0.5 in ( units unknown) (unknown) (unknown) (no date) (unknown) (unknown) History of car pal tunnel repair (units unknown) (unknown) (unknown) (no date) (unknown) (unknown) History of sin us surgery (units unknown) (unknown) (unknown) (no date) (unknown) (unknown) History of spi nal fusion (units unknown) (unknown) (unknown) (no date) (unknown) (unknown) History of tonsillectomy (units unknown) (unknown) (unknown) (no date) (unknown) (unknown) IV .q6mo 07/25 [History Confirmed 02/14/23] (units unknown) (unknown) (unknown) (no date) (unknown) (unknown) In reviewing h er chart, the patient has had ring pessaries from size 2 through (units unknown) (unknown) (unknown) (no date) (unknown) (unknown) Intake Note: (units unknown) (unknown) (unknown) (no date) (unknown) (unknown) Intake perform ed by: Brooke Gaines (units unknown) (unknown) (unknown) (no date) (unknown) (unknown) Intake (units unknown) (unknown) (unknown) (no date) (unknown) (unknown) Intake- Mohan gore Staff (units unknown) (unknown) (unknown) (no date) (unknown) (unknown) Judgment: judg ment good (units unknown) (unknown) (unknown) (no date) (unknown) (unknown) Last Menstural Cycle + Details (units unknown) (unknown) (unknown) (no date) (unknown) (unknown) Loc: [facility] (units unknown) (unknown) (unknown) (no date) (unknown) (unknown) Medical Histor y (units unknown) (unknown) (unknown) (no date) (unknown) (unknown) Medications (units unknown) (unknown) (unknown) (no date) (unknown) (unknown) Mental Status: mental status grossly normal (units unknown) (unknown) (unknown) (no date) (unknown) (unknown) Mood: congruen t mood (units unknown) (unknown) (unknown) (no date) (unknown) (unknown) Mother d Heart disease (units unknown) (unknown) (unknown) (no date) (unknown) (unknown) Theresa returns today with issues regarding her [place] pessary. Pessary became (units unknown) (unknown) (unknown) (no date) (unknown) (unknown) NAUSEA/ PASSED OUT ( units unknown) (unknown) (unknown) (no date) (unknown) (unknown) Neck (units unknown) (unknown) (unknown) (no date) (unknown) (unknown) Neck: normal v isual inspection (units unknown) (unknown) (unknown) (no date) (unknown) (unknown) Nutritional Appearance: average body habitus (units unknown) (unknown) (unknown) (no date) (unknown) (unknown) Obtaining and/ or reviewing separately obtained history: 5 (units unknown) (unknown) (unknown) (no date) (unknown) (unknown) Orientation: a lert and oriented x3 (units unknown) (unknown) (unknown) (no date) (unknown) (unknown) Other Menstrua l Period: Postmenopausal (units unknown) (unknown) (unknown) (no date) (unknown) (unknown) PFSH (units unknown) (unknown) (unknown) (no date) (unknown) (unknown) Patient will contact the office with any concerns or problems she might have (units unknown) (unknown) (unknown) (no date) (unknown) (unknown) Patient: Theresa Rodriguez MR#: [id number] (units unknown) (unknown) (unknown) (no date) (unknown) (unknown) Pelvic Support : cystocele and vaginal apex descent (units unknown) (unknown) (unknown) (no date) (unknown) (unknown) Performing a medically appropriate exam and/or evaluation: 5 (units unknown) (unknown) (unknown) (no date) (unknown) (unknown) Pessary maintenance (units unknown) (unknown) (unknown) (no date) (unknown) (unknown) Plan (units unknown) (unknown) (unknown) (no date) (unknown) (unknown) Position Sitting (un its unknown) (unknown) (unknown) (no date) (unknown) (unknown) Preparing to s ee the patient, i.e., chart review, review of tests: 5 (units unknown) (unknown) (unknown) (no date) (unknown) (unknown) Problem-specif ic ROS positives included with the HPI (units unknown) (unknown) (unknown) (no date) (unknown) (unknown) Psych (units unknown) (unknown) (unknown) (no date) (unknown) (unknown) Pt here for pe ssary check (units unknown) (unknown) (unknown) (no date) (unknown) (unknown) ROS Narrative (units unknown) (unknown) (unknown) (no date) (unknown) (unknown) ROS Narrative: (unit s unknown) (unknown) (unknown) (no date) (unknown) (unknown) ROS (units unknown) (unknown) (unknown) (no date) (unknown) (unknown) Reason For Visit (un its unknown) (unknown) (unknown) (no date) (unknown) (unknown) Regular) 2 ea PO DAILY ##0 01/10/18 [History Confirmed 02/14/23] (units unknown) (unknown) (unknown) (no date) (unknown) (unknown) Resp (units unknown) (unknown) (unknown) (no date) (unknown) (unknown) Sclera: sclera e normal (units unknown) (unknown) (unknown) (no date) (unknown) (unknown) Signed By: <Electronically signed by Mamadou Bustamante MD> (units unknown) (unknown) (unknown) (no date) (unknown) (unknown) Signed (units unknown) (unknown) (unknown) (no date) (unknown) (unknown) Size 5 ring pe ssary with support fitted and well tolerated. Instructions (units unknown) (unknown) (unknown) (no date) (unknown) (unknown) Smoking Status : Never smoker (units unknown) (unknown) (unknown) (no date) (unknown) (unknown) Social History (unit s unknown) (unknown) (unknown) (no date) (unknown) (unknown) Speculum Exam - Cervix: normal appearance of the cervix (units unknown) (unknown) (unknown) (no date) (unknown) (unknown) Speculum Exam - Vagina: erythematous (Slight, apical) (units unknown) (unknown) (unknown) (no date) (unknown) (unknown) Speech and Movement: speech and movement normal (units unknown) (unknown) (unknown) (no date) (unknown) (unknown) Status post epidural steroid injection (04/15/18) (units unknown) (unknown) (unknown) (no date) (unknown) (unknown) Status: Acute (units unknown) (unknown) (unknown) (no date) (unknown) (unknown) Status: Chronic (uni ts unknown) (unknown) (unknown) (no date) (unknown) (unknown) Stroke (units unknown) (unknown) (unknown) (no date) (unknown) (unknown) Surgical Histo ry (units unknown) (unknown) (unknown) (no date) (unknown) (unknown) This note may have been all or partially generated using voice recognition (units unknown) (unknown) (unknown) (no date) (unknown) (unknown) Thought Conten t: normal (units unknown) (unknown) (unknown) (no date) (unknown) (unknown) Thought Proces s: normal (units unknown) (unknown) (unknown) (no date) (unknown) (unknown) Time Coding Mi nutes Spent: (must be on same date of service/appointment ) (units unknown) (unknown) (unknown) (no date) (unknown) (unknown) Time Spent (units unknown) (unknown) (unknown) (no date) (unknown) (unknown) Tobacco + Subs tance Use (units unknown) (unknown) (unknown) (no date) (unknown) (unknown) Tobacco Status (unit s unknown) (unknown) (unknown) (no date) (unknown) (unknown) Total Time: 25 (unit s unknown) (unknown) (unknown) (no date) (unknown) (unknown) Urethra: tender (uni ts unknown) (unknown) (unknown) (no date) (unknown) (unknown) Vaginal prolapse (un its unknown) (unknown) (unknown) (no date) (unknown) (unknown) Visit Reasons: Pessary out of place/causing pain (units unknown) (unknown) (unknown) (no date) (unknown) (unknown) Vitals (units unknown) (unknown) (unknown) (no date) (unknown) (unknown) Weight 110 lb (units unknown) (unknown) (unknown) (no date) (unknown) (unknown) [History Confi rmed 02/14/23] (units unknown) (unknown) (unknown) (no date) (unknown) (unknown) alcohol intake : never (units unknown) (unknown) (unknown) (no date) (unknown) (unknown) ascorbic acid (vitamin C) 500 mg tablet 500 mg PO QDAY ##0 01/10/18 [History (units unknown) (unknown) (unknown) (no date) (unknown) (unknown) aspirin 81 mg tablet,delayed release (Adult Aspirin Regimen) 81 mg PO DAILY (units unknown) (unknown) (unknown) (no date) (unknown) (unknown) atorvastatin 4 0 mg tablet 40 mg PO DAILY 11/06/21 [History Confirmed 02/14/23] (units unknown) (unknown) (unknown) (no date) (unknown) (unknown) ay occur. Occasional wrong-word or 'sound-alike' substitutions may have (units unknown) (unknown) (unknown) (no date) (unknown) (unknown) brought it wit h her today for re-insert (units unknown) (unknown) (unknown) (no date) (unknown) (unknown) budesonide 180 mcg/actuation breath activated powder inhaler (Pulmicort (units unknown) (unknown) (unknown) (no date) (unknown) (unknown) calcitonin (sa lmon) 200 unit/actuation nasal spray 1 spray intranasal (ALT) (units unknown) (unknown) (unknown) (no date) (unknown) (unknown) calcium citrat e 250 mg calcium-vitamin D3 5 mcg (200 unit) tablet (Citracal (units unknown) (unknown) (unknown) (no date) (unknown) (unknown) cyanocobalamin (vitamin B-12) 500 mcg lozenges (Vitamin B-12) 500 mcg PO DAILY (units unknown) (unknown) (unknown) (no date) (unknown) (unknown) displaced and was quite uncomfortable therefore the patient remove the pessary. (units unknown) (unknown) (unknown) (no date) (unknown) (unknown) docusate sodiu m 100 mg tablet 100 mg PO BID #30 tabs 11/09/21 [Rx Confirmed (units unknown) (unknown) (unknown) (no date) (unknown) (unknown) external swell ing, no lesions and tender (units unknown) (unknown) (unknown) (no date) (unknown) (unknown) have occurred. If there are any questions, please contact the Medical Records (units unknown) (unknown) (unknown) (no date) (unknown) (unknown) household memb ers: spouse (units unknown) (unknown) (unknown) (no date) (unknown) (unknown) magnesium oxid e 400 mg PO DAILY ##0 01/10/18 [History Confirmed 02/14/23] (units unknown) (unknown) (unknown) (no date) (unknown) (unknown) metoprolol succinate 25 mg tablet,extended release 24 hr 25 mg PO DAILY 12/29/19 (units unknown) (unknown) (unknown) (no date) (unknown) (unknown) multivitamin (Multiple Vitamins tablet) 1 tab PO QDAY ##0 01/10/18 [History (units unknown) (unknown) (unknown) (no date) (unknown) (unknown) not seem to be doing well with the caring and will therefore switch back to a (units unknown) (unknown) (unknown) (no date) (unknown) (unknown) occurred due t o the inherent limitations of voice recognition software. Please (units unknown) (unknown) (unknown) (no date) (unknown) (unknown) omeprazole 20 mg capsule,delayed release 20 mg PO QDAY@0600 ##0 01/10/18 (units unknown) (unknown) (unknown) (no date) (unknown) (unknown) otherwise her follow-up will be as scheduled in 2 months. (units unknown) (unknown) (unknown) (no date) (unknown) (unknown) place and was very uncomfortable/painf ul she removed pessary due to the pain and (units unknown) (unknown) (unknown) (no date) (unknown) (unknown) pramipexole [F rom MIRAPEX] Allergy (Severe, Verified 02/14/23 12:02) (units unknown) (unknown) (unknown) (no date) (unknown) (unknown) provided. (units unknown) (unknown) (unknown) (no date) (unknown) (unknown) pt called yest ara saying it felt like her pessary was falling out or out of (units unknown) (unknown) (unknown) (no date) (unknown) (unknown) read the note carefully and recognize, using context, where these substitutions (units unknown) (unknown) (unknown) (no date) (unknown) (unknown) ring pessary w ith support but increase the size if tolerated. (units unknown) (unknown) (unknown) (no date) (unknown) (unknown) sentences (units unknown) (unknown) (unknown) (no date) (unknown) (unknown) size 4 previou sly with the size 4 pessary being expelled on occasion. 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 (units unknown) (unknown) (unknown) (no date) (unknown) (unknown) warfarin 3 mg tablet 3 mg PO DAILY 02/12/19 [History Confirmed 02/14/23] (units unknown) (unknown) (unknown) (no date) (unknown) (unknown) zoledronic aci d 5 mg/100 mL in mannitol 5 %-water intravenous piggybck (Reclast) (units unknown) (unknown) Result panel 7 (unknown) (no date) (unknown) (unknown) (no value) (units unknown) (unknown) (unknown) (no date) (unknown) (unknown) 04/02/23 (units unknown) (unknown) (unknown) (no date) (unknown) (unknown) [id number] (units unknown) (unknown) (unknown) (no date) (unknown) (unknown) Age related osteoporosis (units unknown) (unknown) (unknown) (no date) (unknown) (unknown) Age/Sex: 87 / F Date of Service: (units unknown) (unknown) (unknown) (no date) (unknown) (unknown) Allergies (units unknown) (unknown) (unknown) (no date) (unknown) (unknown) [place] [address] (units unknown) (unknown) (unknown) (no date) (unknown) (unknown) Anemia (units unknown) (unknown) (unknown) (no date) (unknown) (unknown) Arthritis (units unknown) (unknown) (unknown) (no date) (unknown) (unknown) Attending Dr: Mamadou Bustamante MD (units unknown) (unknown) (unknown) (no date) (unknown) (unknown) Breast cancer (units unknown) (unknown) (unknown) (no date) (unknown) (unknown) Brother Deceas ed Diabetes mellitus (units unknown) (unknown) (unknown) (no date) (unknown) (unknown) Brother [place] ed Heart disease (units unknown) (unknown) (unknown) (no date) (unknown) (unknown) : 7 Acct:[id number] (units unknown) (unknown) (unknown) (no date) (unknown) (unknown) Degenerative l umbar spinal stenosis (units unknown) (unknown) (unknown) (no date) (unknown) (unknown) Dept at . (units unknown) (unknown) (unknown) (no date) (unknown) (unknown) Diabetes mellitus (u nits unknown) (unknown) (unknown) (no date) (unknown) (unknown) Documented By: Mamadou Bustamante MD 04/02/23 0847 (units unknown) (unknown) (unknown) (no date) (unknown) (unknown) Draft (units unknown) (unknown) (unknown) (no date) (unknown) (unknown) Family History (units unknown) (unknown) (unknown) (no date) (unknown) (unknown) Father d Osteoporosis (units unknown) (unknown) (unknown) (no date) (unknown) (unknown) [facility] (units unknown) (unknown) (unknown) (no date) (unknown) (unknown) Gynecology Visit (un its unknown) (unknown) (unknown) (no date) (unknown) (unknown) Headache (units unknown) (unknown) (unknown) (no date) (unknown) (unknown) Health Managem ent reviewed with patient: No (units unknown) (unknown) (unknown) (no date) (unknown) (unknown) Health Management (u nits unknown) (unknown) (unknown) (no date) (unknown) (unknown) History of car pal tunnel repair (units unknown) (unknown) (unknown) (no date) (unknown) (unknown) History of sin us surgery (units unknown) (unknown) (unknown) (no date) (unknown) (unknown) History of spi nal fusion (units unknown) (unknown) (unknown) (no date) (unknown) (unknown) History of tonsillectomy (units unknown) (unknown) (unknown) (no date) (unknown) (unknown) Intake Note: (units unknown) (unknown) (unknown) (no date) (unknown) (unknown) Intake perform ed by: Iliana Heredia (units unknown) (unknown) (unknown) (no date) (unknown) (unknown) Intake (units unknown) (unknown) (unknown) (no date) (unknown) (unknown) Intake- Mohan gore Staff (units unknown) (unknown) (unknown) (no date) (unknown) (unknown) Last Menstural Cycle + Details (units unknown) (unknown) (unknown) (no date) (unknown) (unknown) Loc: [facility] (units unknown) (unknown) (unknown) (no date) (unknown) (unknown) Medical Histor y (units unknown) (unknown) (unknown) (no date) (unknown) (unknown) Mother d Heart disease (units unknown) (unknown) (unknown) (no date) (unknown) (unknown) NAUSEA/ PASSED OUT ( units unknown) (unknown) (unknown) (no date) (unknown) (unknown) Other Menstrua l Period: Postmenopausal (units unknown) (unknown) (unknown) (no date) (unknown) (unknown) PFSH (units unknown) (unknown) (unknown) (no date) (unknown) (unknown) Patient is her e today for 2 month pessary check. (units unknown) (unknown) (unknown) (no date) (unknown) (unknown) Patient: Theresa Rodriguez MR#: [id number] (units unknown) (unknown) (unknown) (no date) (unknown) (unknown) Pessary maintenance (units unknown) (unknown) (unknown) (no date) (unknown) (unknown) Reason For Visit (un its unknown) (unknown) (unknown) (no date) (unknown) (unknown) Signed By: (units unknown) (unknown) (unknown) (no date) (unknown) (unknown) Smoking Status : Never smoker (units unknown) (unknown) (unknown) (no date) (unknown) (unknown) Social History (unit s unknown) (unknown) (unknown) (no date) (unknown) (unknown) Status post epidural steroid injection (04/15/18) (units unknown) (unknown) (unknown) (no date) (unknown) (unknown) Stroke (units unknown) (unknown) (unknown) (no date) (unknown) (unknown) Surgical Histo ry (units unknown) (unknown) (unknown) (no date) (unknown) (unknown) This note may have been all or partially generated using voice recognition (units unknown) (unknown) (unknown) (no date) (unknown) (unknown) Tobacco + Subs tance Use (units unknown) (unknown) (unknown) (no date) (unknown) (unknown) Tobacco Status (unit s unknown) (unknown) (unknown) (no date) (unknown) (unknown) Vaginal prolapse (un its unknown) (unknown) (unknown) (no date) (unknown) (unknown) Visit Reasons: 2 mo Pessary check (units unknown) (unknown) (unknown) (no date) (unknown) (unknown) alcohol intake : never (units unknown) (unknown) (unknown) (no date) (unknown) (unknown) have occurred. If there are any questions, please contact the Medical Records (units unknown) (unknown) (unknown) (no date) (unknown) (unknown) household memb ers: spouse (units unknown) (unknown) (unknown) (no date) (unknown) (unknown) may occur. Occasional wrong-word or 'sound-alike' substitutions may have (units unknown) (unknown) (unknown) (no date) (unknown) (unknown) occurred due t o the inherent limitations of voice recognition software. Please (units unknown) (unknown) (unknown) (no date) (unknown) (unknown) pramipexole [F rom MIRAPEX] Allergy (Severe, Verified 02/14/23 12:02) (units unknown) (unknown) (unknown) (no date) (unknown) (unknown) read the note carefully and recognize, using context, where these substitutions (units unknown) (unknown) (unknown) (no date) (unknown) (unknown) software. 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 (units unknown) (unknown) Result panel 8 (unknown) (no date) (unknown) (unknown) (no value) (units unknown) (unknown) (unknown) (no date) (unknown) (unknown) ##0 01/10/18 [History Confirmed 04/02/23] (units unknown) (unknown) (unknown) (no date) (unknown) (unknown) 04/02/23 (units unknown) (unknown) (unknown) (no date) (unknown) (unknown) 04/02/23] (units unknown) (unknown) (unknown) (no date) (unknown) (unknown) 04/18/21 [Hist ory Confirmed 04/02/23] (units unknown) (unknown) (unknown) (no date) (unknown) (unknown) 09:02 (units unknown) (unknown) (unknown) (no date) (unknown) (unknown) [id number] (units unknown) (unknown) (unknown) (no date) (unknown) (unknown) Age related osteoporosis (units unknown) (unknown) (unknown) (no date) (unknown) (unknown) Age/Sex: 87 / F Date of Service: (units unknown) (unknown) (unknown) (no date) (unknown) (unknown) Allergies (units unknown) (unknown) (unknown) (no date) (unknown) (unknown) [place], [place] [address] (units unknown) (unknown) (unknown) (no date) (unknown) (unknown) Anemia (units unknown) (unknown) (unknown) (no date) (unknown) (unknown) Arthritis (units unknown) (unknown) (unknown) (no date) (unknown) (unknown) Attending Dr: Mamadou Bustamante MD (units unknown) (unknown) (unknown) (no date) (unknown) (unknown) BMI 21.1 (units unknown) (unknown) (unknown) (no date) (unknown) (unknown) BP 130/60 (units unknown) (unknown) (unknown) (no date) (unknown) (unknown) Blood Pressure Location Rt brachial (units unknown) (unknown) (unknown) (no date) (unknown) (unknown) Breast cancer (units unknown) (unknown) (unknown) (no date) (unknown) (unknown) Brother Deceas ed Diabetes mellitus (units unknown) (unknown) (unknown) (no date) (unknown) (unknown) Brother Deceas ed Heart disease (units unknown) (unknown) (unknown) (no date) (unknown) (unknown) Confirmed 04/02/23] (units unknown) (unknown) (unknown) (no date) (unknown) (unknown) DAILY 07/25/22 [History Confirmed 04/02/23] (units unknown) (unknown) (unknown) (no date) (unknown) (unknown) : 7 Acct:[id number] (units unknown) (unknown) (unknown) (no date) (unknown) (unknown) Degenerative l umbar spinal stenosis (units unknown) (unknown) (unknown) (no date) (unknown) (unknown) Dept at . (units unknown) (unknown) (unknown) (no date) (unknown) (unknown) Diabetes mellitus (u nits unknown) (unknown) (unknown) (no date) (unknown) (unknown) Documented By: Mamadou Bustamante MD 04/02/23 0847 (units unknown) (unknown) (unknown) (no date) (unknown) (unknown) Draft (units unknown) (unknown) (unknown) (no date) (unknown) (unknown) Estradiol pear ls 10 mcg vaginal 2XW #30 supp 03/14/23 [Rx Confirmed 04/02/23] (units unknown) (unknown) (unknown) (no date) (unknown) (unknown) Family History (units unknown) (unknown) (unknown) (no date) (unknown) (unknown) Father d Osteoporosis (units unknown) (unknown) (unknown) (no date) (unknown) (unknown) [facility] (units unknown) (unknown) (unknown) (no date) (unknown) (unknown) Flexhaler) 1 inhalation inhalation DAILY 12/29/19 [History Confirmed 04/02/23] (units unknown) (unknown) (unknown) (no date) (unknown) (unknown) Gynecology Visit (un its unknown) (unknown) (unknown) (no date) (unknown) (unknown) Headache (units unknown) (unknown) (unknown) (no date) (unknown) (unknown) Health Managem ent reviewed with patient: No (units unknown) (unknown) (unknown) (no date) (unknown) (unknown) Health Management (u nits unknown) (unknown) (unknown) (no date) (unknown) (unknown) Height 5 ft 0.5 in ( units unknown) (unknown) (unknown) (no date) (unknown) (unknown) History of car pal tunnel repair (units unknown) (unknown) (unknown) (no date) (unknown) (unknown) History of sin us surgery (units unknown) (unknown) (unknown) (no date) (unknown) (unknown) History of spi nal fusion (units unknown) (unknown) (unknown) (no date) (unknown) (unknown) History of tonsillectomy (units unknown) (unknown) (unknown) (no date) (unknown) (unknown) IV .q6mo 07/25 [History Confirmed 04/02/23] (units unknown) (unknown) (unknown) (no date) (unknown) (unknown) Intake Note: (units unknown) (unknown) (unknown) (no date) (unknown) (unknown) Intake perform ed by: Iliana Heredia (units unknown) (unknown) (unknown) (no date) (unknown) (unknown) Intake (units unknown) (unknown) (unknown) (no date) (unknown) (unknown) Intake- Mohan gore Staff (units unknown) (unknown) (unknown) (no date) (unknown) (unknown) Last Menstural Cycle + Details (units unknown) (unknown) (unknown) (no date) (unknown) (unknown) Loc: [facility] (units unknown) (unknown) (unknown) (no date) (unknown) (unknown) Medical Histor y (units unknown) (unknown) (unknown) (no date) (unknown) (unknown) Medications (units unknown) (unknown) (unknown) (no date) (unknown) (unknown) Mother d Heart disease (units unknown) (unknown) (unknown) (no date) (unknown) (unknown) NAUSEA/ PASSED OUT ( units unknown) (unknown) (unknown) (no date) (unknown) (unknown) Other Menstrua l Period: Postmenopausal (units unknown) (unknown) (unknown) (no date) (unknown) (unknown) PFSH (units unknown) (unknown) (unknown) (no date) (unknown) (unknown) Patient is her e today for 2 month pessary check. (units unknown) (unknown) (unknown) (no date) (unknown) (unknown) Patient: Theresa Rodriguez MR#: [id number] (units unknown) (unknown) (unknown) (no date) (unknown) (unknown) Per patient st ated that the bladder is coming out even with the pessary. (units unknown) (unknown) (unknown) (no date) (unknown) (unknown) Pessary maintenance (units unknown) (unknown) (unknown) (no date) (unknown) (unknown) Position Sitting (un its unknown) (unknown) (unknown) (no date) (unknown) (unknown) Reason For Visit (un its unknown) (unknown) (unknown) (no date) (unknown) (unknown) Regular) 2 ea PO DAILY ##0 01/10/18 [History Confirmed 04/02/23] (units unknown) (unknown) (unknown) (no date) (unknown) (unknown) Signed By: (units unknown) (unknown) (unknown) (no date) (unknown) (unknown) Smoking Status : Never smoker (units unknown) (unknown) (unknown) (no date) (unknown) (unknown) Social History (unit s unknown) (unknown) (unknown) (no date) (unknown) (unknown) Status post epidural steroid injection (04/15/18) (units unknown) (unknown) (unknown) (no date) (unknown) (unknown) Stroke (units unknown) (unknown) (unknown) (no date) (unknown) (unknown) Surgical Histo ry (units unknown) (unknown) (unknown) (no date) (unknown) (unknown) This note may have been all or partially generated using voice recognition (units unknown) (unknown) (unknown) (no date) (unknown) (unknown) Tobacco + Subs tance Use (units unknown) (unknown) (unknown) (no date) (unknown) (unknown) Tobacco Status (unit s unknown) (unknown) (unknown) (no date) (unknown) (unknown) Vaginal prolapse (un its unknown) (unknown) (unknown) (no date) (unknown) (unknown) Visit Reasons: 2 mo Pessary check (units unknown) (unknown) (unknown) (no date) (unknown) (unknown) Vitals (units unknown) (unknown) (unknown) (no date) (unknown) (unknown) Weight 110 lb (units unknown) (unknown) (unknown) (no date) (unknown) (unknown) [History Confi rmed 04/02/23] (units unknown) (unknown) (unknown) (no date) (unknown) (unknown) alcohol intake : never (units unknown) (unknown) (unknown) (no date) (unknown) (unknown) ascorbic acid (vitamin C) 500 mg tablet 500 mg PO QDAY ##0 01/10/18 [History (units unknown) (unknown) (unknown) (no date) (unknown) (unknown) aspirin 81 mg tablet,delayed release (Adult Aspirin Regimen) 81 mg PO DAILY (units unknown) (unknown) (unknown) (no date) (unknown) (unknown) atorvastatin 4 0 mg tablet 40 mg PO DAILY 11/06/21 [History Confirmed 04/02/23] (units unknown) (unknown) (unknown) (no date) (unknown) (unknown) budesonide 180 mcg/actuation breath activated powder inhaler (Pulmicort (units unknown) (unknown) (unknown) (no date) (unknown) (unknown) calcitonin (sa lmon) 200 unit/actuation nasal spray 1 spray intranasal (ALT) (units unknown) (unknown) (unknown) (no date) (unknown) (unknown) calcium citrat e 250 mg calcium-vitamin D3 5 mcg (200 unit) tablet (Citracal (units unknown) (unknown) (unknown) (no date) (unknown) (unknown) cyanocobalamin (vitamin B-12) 500 mcg lozenges (Vitamin B-12) 500 mcg PO DAILY (units unknown) (unknown) (unknown) (no date) (unknown) (unknown) docusate sodiu m 100 mg tablet 100 mg PO BID #30 tabs 11/09/21 [Rx Confirmed (units unknown) (unknown) (unknown) (no date) (unknown) (unknown) have occurred. If there are any questions, please contact the Medical Records (units unknown) (unknown) (unknown) (no date) (unknown) (unknown) household memb ers: spouse (units unknown) (unknown) (unknown) (no date) (unknown) (unknown) magnesium oxid e 400 mg PO DAILY ##0 01/10/18 [History Confirmed 04/02/23] (units unknown) (unknown) (unknown) (no date) (unknown) (unknown) may occur. Occasional wrong-word or 'sound-alike' substitutions may have (units unknown) (unknown) (unknown) (no date) (unknown) (unknown) metoprolol succinate 25 mg tablet,extended release 24 hr 25 mg PO DAILY 12/29/19 (units unknown) (unknown) (unknown) (no date) (unknown) (unknown) multivitamin (Multiple Vitamins tablet) 1 tab PO QDAY ##0 01/10/18 [History (units unknown) (unknown) (unknown) (no date) (unknown) (unknown) occurred due t o the inherent limitations of voice recognition software. Please (units unknown) (unknown) (unknown) (no date) (unknown) (unknown) omeprazole 20 mg capsule,delayed release 20 mg PO QDAY@0600 ##0 01/10/18 (units unknown) (unknown) (unknown) (no date) (unknown) (unknown) pramipexole [F rom MIRAPEX] Allergy (Severe, Verified 04/02/23 09:02) (units unknown) (unknown) (unknown) (no date) (unknown) (unknown) read the note carefully and recognize, using context, where these substitutions (units unknown) (unknown) (unknown) (no date) (unknown) (unknown) software. 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 (units unknown) (unknown) (unknown) (no date) (unknown) (unknown) warfarin 3 mg tablet 3 mg PO DAILY 02/12/19 [History Confirmed 04/02/23] (units unknown) (unknown) (unknown) (no date) (unknown) (unknown) zoledronic aci d 5 mg/100 mL in mannitol 5 %-water intravenous piggybck (Reclast) (units unknown) (unknown) Result panel 9 (unknown) (no date) (unknown) (unknown) (no value) (units unknown) (unknown) (unknown) (no date) (unknown) (unknown) ##0 01/10/18 [History Confirmed 04/02/23] (units unknown) (unknown) (unknown) (no date) (unknown) (unknown) 04/02/23 (units unknown) (unknown) (unknown) (no date) (unknown) (unknown) 04/02/23] (units unknown) (unknown) (unknown) (no date) (unknown) (unknown) 04/18/21 [Hist ory Confirmed 04/02/23] (units unknown) (unknown) (unknown) (no date) (unknown) (unknown) 09:02 (units unknown) (unknown) (unknown) (no date) (unknown) (unknown) [id number] (units unknown) (unknown) (unknown) (no date) (unknown) (unknown) Affect: normal affect (units unknown) (unknown) (unknown) (no date) (unknown) (unknown) Age related osteoporosis (units unknown) (unknown) (unknown) (no date) (unknown) (unknown) Age/Sex: 87 / F Date of Service: (units unknown) (unknown) (unknown) (no date) (unknown) (unknown) Allergies (units unknown) (unknown) (unknown) (no date) (unknown) (unknown) [place] [address] (units unknown) (unknown) (unknown) (no date) (unknown) (unknown) Anemia (units unknown) (unknown) (unknown) (no date) (unknown) (unknown) Appearance: gr ossly normal (units unknown) (unknown) (unknown) (no date) (unknown) (unknown) Arthritis (units unknown) (unknown) (unknown) (no date) (unknown) (unknown) Attending Dr: Mamadou Bustamante MD (units unknown) (unknown) (unknown) (no date) (unknown) (unknown) Attitude: cooperative (units unknown) (unknown) (unknown) (no date) (unknown) (unknown) BMI 21.1 (units unknown) (unknown) (unknown) (no date) (unknown) (unknown) BP 130/60 (units unknown) (unknown) (unknown) (no date) (unknown) (unknown) Blood Pressure Location Rt brachial (units unknown) (unknown) (unknown) (no date) (unknown) (unknown) Breast cancer (units unknown) (unknown) (unknown) (no date) (unknown) (unknown) Brother Deceas ed Diabetes mellitus (units unknown) (unknown) (unknown) (no date) (unknown) (unknown) Brother Dece ed Heart disease (units unknown) (unknown) (unknown) (no date) (unknown) (unknown) Chief Complaint (uni ts unknown) (unknown) (unknown) (no date) (unknown) (unknown) Chief Complain t: Pessary check (units unknown) (unknown) (unknown) (no date) (unknown) (unknown) Confirmed 04/02/23] (units unknown) (unknown) (unknown) (no date) (unknown) (unknown) Conjunctivae: conjunctivae normal (units unknown) (unknown) (unknown) (no date) (unknown) (unknown) Const (units unknown) (unknown) (unknown) (no date) (unknown) (unknown) DAILY 07/25/22 [History Confirmed 04/02/23] (units unknown) (unknown) (unknown) (no date) (unknown) (unknown) : 7 Acct:[id number] (units unknown) (unknown) (unknown) (no date) (unknown) (unknown) Degenerative l umbar spinal stenosis (units unknown) (unknown) (unknown) (no date) (unknown) (unknown) Dept at . (units unknown) (unknown) (unknown) (no date) (unknown) (unknown) Details: (units unknown) (unknown) (unknown) (no date) (unknown) (unknown) Diabetes mellitus (u nits unknown) (unknown) (unknown) (no date) (unknown) (unknown) Documented By: Mamadou Bustamante MD 04/02/23 0832 (units unknown) (unknown) (unknown) (no date) (unknown) (unknown) Draft (units unknown) (unknown) (unknown) (no date) (unknown) (unknown) EOM: EOM intac t bilaterally (units unknown) (unknown) (unknown) (no date) (unknown) (unknown) Ears: hearing grossly normal bilaterally (units unknown) (unknown) (unknown) (no date) (unknown) (unknown) Effort + Inspection: normal respiratory effort and able to speak in complete (units unknown) (unknown) (unknown) (no date) (unknown) (unknown) Estradiol pear ls 10 mcg vaginal 2XW #30 supp 03/14/23 [Rx Confirmed 04/02/23] (units unknown) (unknown) (unknown) (no date) (unknown) (unknown) Exam (units unknown) (unknown) (unknown) (no date) (unknown) (unknown) External Femal e Exam: normal external appearance (Normal for age and parity), (units unknown) (unknown) (unknown) (no date) (unknown) (unknown) Eyes (units unknown) (unknown) (unknown) (no date) (unknown) (unknown) Face and sinus : face symmetric (units unknown) (unknown) (unknown) (no date) (unknown) (unknown) Family History (units unknown) (unknown) (unknown) (no date) (unknown) (unknown) Father d Osteoporosis (units unknown) (unknown) (unknown) (no date) (unknown) (unknown) [facility] (units unknown) (unknown) (unknown) (no date) (unknown) (unknown) Flexhaler) 1 inhalation inhalation DAILY 12/29/19 [History Confirmed 04/02/23] (units unknown) (unknown) (unknown) (no date) (unknown) (unknown) (units unknown) (unknown) (unknown) (no date) (unknown) (unknown) General: appea maria [place] rosario normal, both eyes and all related structures (units unknown) (unknown) (unknown) (no date) (unknown) (unknown) General: cooperative, comfortable and no acute distress (units unknown) (unknown) (unknown) (no date) (unknown) (unknown) Gynecology Visit (un its unknown) (unknown) (unknown) (no date) (unknown) (unknown) HENMT (units unknown) (unknown) (unknown) (no date) (unknown) (unknown) HPI (units unknown) (unknown) (unknown) (no date) (unknown) (unknown) Head: normal t o inspection, normocephalic and atraumatic (units unknown) (unknown) (unknown) (no date) (unknown) (unknown) Headache (units unknown) (unknown) (unknown) (no date) (unknown) (unknown) Health Managem ent reviewed with patient: No (units unknown) (unknown) (unknown) (no date) (unknown) (unknown) Health Management (u nits unknown) (unknown) (unknown) (no date) (unknown) (unknown) Height 5 ft 0.5 in ( units unknown) (unknown) (unknown) (no date) (unknown) (unknown) History of car pal tunnel repair (units unknown) (unknown) (unknown) (no date) (unknown) (unknown) History of sin us surgery (units unknown) (unknown) (unknown) (no date) (unknown) (unknown) History of spi nal fusion (units unknown) (unknown) (unknown) (no date) (unknown) (unknown) History of tonsillectomy (units unknown) (unknown) (unknown) (no date) (unknown) (unknown) IV .q6mo 07/25 [History Confirmed 04/02/23] (units unknown) (unknown) (unknown) (no date) (unknown) (unknown) Intake Note: (units unknown) (unknown) (unknown) (no date) (unknown) (unknown) Intake perform ed by: Iliana Heredia (units unknown) (unknown) (unknown) (no date) (unknown) (unknown) Intake (units unknown) (unknown) (unknown) (no date) (unknown) (unknown) 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- Mohan gore Staff (units unknown) (unknown) (unknown) (no date) (unknown) (unknown) Judgment: judg ment good (units unknown) (unknown) (unknown) (no date) (unknown) (unknown) Last Menstural Cycle + Details (units unknown) (unknown) (unknown) (no date) (unknown) (unknown) Loc: [facility] (units unknown) (unknown) (unknown) (no date) (unknown) (unknown) Medical Histor y (units unknown) (unknown) (unknown) (no date) (unknown) (unknown) Medications (units unknown) (unknown) (unknown) (no date) (unknown) (unknown) Mental Status: mental status grossly normal (units unknown) (unknown) (unknown) (no date) (unknown) (unknown) Mood: congruen t mood (units unknown) (unknown) (unknown) (no date) (unknown) (unknown) Mother d Heart disease (units unknown) (unknown) (unknown) (no date) (unknown) (unknown) Theresa returns today for her 2 month pessary check after switching over to a (units unknown) (unknown) (unknown) (no date) (unknown) (unknown) NAUSEA/ PASSED OUT ( units unknown) (unknown) (unknown) (no date) (unknown) (unknown) Neck (units unknown) (unknown) (unknown) (no date) (unknown) (unknown) Neck: normal v isual inspection (units unknown) (unknown) (unknown) (no date) (unknown) (unknown) Nutritional Appearance: average body habitus (units unknown) (unknown) (unknown) (no date) (unknown) (unknown) Orientation: a lert and oriented x3 (units unknown) (unknown) (unknown) (no date) (unknown) (unknown) Other Menstrua l Period: Postmenopausal (units unknown) (unknown) (unknown) (no date) (unknown) (unknown) PFSH (units unknown) (unknown) (unknown) (no date) (unknown) (unknown) Patient is her e today for 2 month pessary check. (units unknown) (unknown) (unknown) (no date) (unknown) (unknown) Patient: Theresa Rodriguez MR#: [id number] (units unknown) (unknown) (unknown) (no date) (unknown) (unknown) Per patient st ated that the bladder is coming out even with the pessary. (units unknown) (unknown) (unknown) (no date) (unknown) (unknown) Pessary maintenance (units unknown) (unknown) (unknown) (no date) (unknown) (unknown) Position Sitting (un its unknown) (unknown) (unknown) (no date) (unknown) (unknown) Problem-specif ic ROS positives included with the HPI (units unknown) (unknown) (unknown) (no date) (unknown) (unknown) Psych (units unknown) (unknown) (unknown) (no date) (unknown) (unknown) ROS Narrative (units unknown) (unknown) (unknown) (no date) (unknown) (unknown) ROS Narrative: (unit s unknown) (unknown) (unknown) (no date) (unknown) (unknown) ROS (units unknown) (unknown) (unknown) (no date) (unknown) (unknown) Reason For Visit (un its unknown) (unknown) (unknown) (no date) (unknown) (unknown) Regular) 2 ea PO DAILY ##0 01/10/18 [History Confirmed 04/02/23] (units unknown) (unknown) (unknown) (no date) (unknown) (unknown) Resp (units unknown) (unknown) (unknown) (no date) (unknown) (unknown) Sclera: sclera e normal (units unknown) (unknown) (unknown) (no date) (unknown) (unknown) Signed By: (units unknown) (unknown) (unknown) (no date) (unknown) (unknown) Smoking Status : Never smoker (units unknown) (unknown) (unknown) (no date) (unknown) (unknown) Social History (unit s unknown) (unknown) (unknown) (no date) (unknown) (unknown) Speculum Exam - Vagina: abnormal vaginal discharge malodorous and yellow, vagina (units unknown) (unknown) (unknown) (no date) (unknown) (unknown) Speech and Movement: speech and movement normal (units unknown) (unknown) (unknown) (no date) (unknown) (unknown) Status post epidural steroid injection (04/15/18) (units unknown) (unknown) (unknown) (no date) (unknown) (unknown) Stroke (units unknown) (unknown) (unknown) (no date) (unknown) (unknown) Surgical Histo ry (units unknown) (unknown) (unknown) (no date) (unknown) (unknown) This note may have been all or partially generated using voice recognition (units unknown) (unknown) (unknown) (no date) (unknown) (unknown) Thought Conten t: normal (units unknown) (unknown) (unknown) (no date) (unknown) (unknown) Thought Proces s: normal (units unknown) (unknown) (unknown) (no date) (unknown) (unknown) Tobacco + Subs tance Use (units unknown) (unknown) (unknown) (no date) (unknown) (unknown) Tobacco Status (unit s unknown) (unknown) (unknown) (no date) (unknown) (unknown) Urethra: cindy l appearance of the urethra (units unknown) (unknown) (unknown) (no date) (unknown) (unknown) Vaginal prolapse (un its unknown) (unknown) (unknown) (no date) (unknown) (unknown) Visit Reasons: 2 mo Pessary check (units unknown) (unknown) (unknown) (no date) (unknown) (unknown) Vitals (units unknown) (unknown) (unknown) (no date) (unknown) (unknown) Weight 110 lb (units unknown) (unknown) (unknown) (no date) (unknown) (unknown) [History Confi rmed 04/02/23] (units unknown) (unknown) (unknown) (no date) (unknown) (unknown) alcohol intake : never (units unknown) (unknown) (unknown) (no date) (unknown) (unknown) ascorbic acid (vitamin C) 500 mg tablet 500 mg PO QDAY ##0 01/10/18 [History (units unknown) (unknown) (unknown) (no date) (unknown) (unknown) aspirin 81 mg tablet,delayed release (Adult Aspirin Regimen) 81 mg PO DAILY (units unknown) (unknown) (unknown) (no date) (unknown) (unknown) atorvastatin 4 0 mg tablet 40 mg PO DAILY 11/06/21 [History Confirmed 04/02/23] (units unknown) (unknown) (unknown) (no date) (unknown) (unknown) atrophic and n ot erythematous (units unknown) (unknown) (unknown) (no date) (unknown) (unknown) budesonide 180 mcg/actuation breath activated powder inhaler (Pulmicort (units unknown) (unknown) (unknown) (no date) (unknown) (unknown) calcitonin (sa lmon) 200 unit/actuation nasal spray 1 spray intranasal (ALT) (units unknown) (unknown) (unknown) (no date) (unknown) (unknown) calcium citrat e 250 mg calcium-vitamin D3 5 mcg (200 unit) tablet (Citracal (units unknown) (unknown) (unknown) (no date) (unknown) (unknown) come down to t he introitus cause patient's significant discomfort. (units unknown) (unknown) (unknown) (no date) (unknown) (unknown) cyanocobalamin (vitamin B-12) 500 mcg lozenges (Vitamin B-12) 500 mcg PO DAILY (units unknown) (unknown) (unknown) (no date) (unknown) (unknown) docusate sodiu m 100 mg tablet 100 mg PO BID #30 tabs 11/09/21 [Rx Confirmed (units unknown) (unknown) (unknown) (no date) (unknown) (unknown) have occurred. If there are any questions, please contact the Medical Records (units unknown) (unknown) (unknown) (no date) (unknown) (unknown) household memb ers: spouse (units unknown) (unknown) (unknown) (no date) (unknown) (unknown) larger ring pe ssary with support. The pessary unfortunately is continuing to (units unknown) (unknown) (unknown) (no date) (unknown) (unknown) magnesium oxid e 400 mg PO DAILY ##0 01/10/18 [History Confirmed 04/02/23] (units unknown) (unknown) (unknown) (no date) (unknown) (unknown) may occur. Occasional wrong-word or 'sound-alike' substitutions may have (units unknown) (unknown) (unknown) (no date) (unknown) (unknown) metoprolol succinate 25 mg tablet,extended release 24 hr 25 mg PO DAILY 12/29/19 (units unknown) (unknown) (unknown) (no date) (unknown) (unknown) multivitamin (Multiple Vitamins tablet) 1 tab PO QDAY ##0 01/10/18 [History (units unknown) (unknown) (unknown) (no date) (unknown) (unknown) normal appeara nce of the urethra and no lesions (units unknown) (unknown) (unknown) (no date) (unknown) (unknown) occurred due t o the inherent limitations of voice recognition software. Please (units unknown) (unknown) (unknown) (no date) (unknown) (unknown) omeprazole 20 mg capsule,delayed release 20 mg PO QDAY@0600 ##0 01/10/18 (units unknown) (unknown) (unknown) (no date) (unknown) (unknown) pramipexole [F rom MIRAPEX] Allergy (Severe, Verified 04/02/23 09:02) (units unknown) (unknown) (unknown) (no date) (unknown) (unknown) read the note carefully and recognize, using context, where these substitutions (units unknown) (unknown) (unknown) (no date) (unknown) (unknown) sentences (units unknown) (unknown) (unknown) (no date) (unknown) (unknown) software. 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 (units unknown) (unknown) (unknown) (no date) (unknown) (unknown) warfarin 3 mg tablet 3 mg PO DAILY 02/12/19 [History Confirmed 04/02/23] (units unknown) (unknown) (unknown) (no date) (unknown) (unknown) zoledronic aci d 5 mg/100 mL in mannitol 5 %-water intravenous piggybck (Reclast) (units unknown) (unknown) Result panel 10 (unknown) (no date) (unknown) (unknown) (no value) (units unknown) (unknown) (unknown) (no date) (unknown) (unknown) ##0 01/10/18 [History Confirmed 04/02/23] (units unknown) (unknown) (unknown) (no date) (unknown) (unknown) (1) 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: (units unknown) (unknown) (unknown) (no date) (unknown) (unknown) (2) Pessary maintenance: (units unknown) (unknown) (unknown) (no date) (unknown) (unknown) (Stage 2) (units unknown) (unknown) (unknown) (no date) (unknown) (unknown) 04/02/23 0945 (units unknown) (unknown) (unknown) (no date) (unknown) (unknown) 04/02/23 (units unknown) (unknown) (unknown) (no date) (unknown) (unknown) 04/02/23] (units unknown) (unknown) (unknown) (no date) (unknown) (unknown) 04/18/21 [Hist ory Confirmed 04/02/23] (units unknown) (unknown) (unknown) (no date) (unknown) (unknown) 09:02 (units unknown) (unknown) (unknown) (no date) (unknown) (unknown) [id number] (units unknown) (unknown) (unknown) (no date) (unknown) (unknown) Additional Billing ( units unknown) (unknown) (unknown) (no date) (unknown) (unknown) Affect: normal affect (units unknown) (unknown) (unknown) (no date) (unknown) (unknown) Age related osteoporosis (units unknown) (unknown) (unknown) (no date) (unknown) (unknown) Age/Sex: 87 / F Date of Service: (units unknown) (unknown) (unknown) (no date) (unknown) (unknown) Allergies (units unknown) (unknown) (unknown) (no date) (unknown) (unknown) [place] [id number] (units unknown) (unknown) (unknown) (no date) (unknown) (unknown) Anemia (units unknown) (unknown) (unknown) (no date) (unknown) (unknown) Appearance: gr ossly normal (units unknown) (unknown) (unknown) (no date) (unknown) (unknown) Arthritis (units unknown) (unknown) (unknown) (no date) (unknown) (unknown) Assessment + Plan (u nits unknown) (unknown) (unknown) (no date) (unknown) (unknown) Attending Dr: Mamadou Bustamante MD (units unknown) (unknown) (unknown) (no date) (unknown) (unknown) Attitude: cooperative (units unknown) (unknown) (unknown) (no date) (unknown) (unknown) BMI 21.1 (units unknown) (unknown) (unknown) (no date) (unknown) (unknown) BP 130/60 (units unknown) (unknown) (unknown) (no date) (unknown) (unknown) Billing- Pessa ry: Pessary, Non Rubber- #PESS (units unknown) (unknown) (unknown) (no date) (unknown) (unknown) Bimanual Exam- Adnexa, other: cystocele (Stage 3) and vaginal apex descent (units unknown) (unknown) (unknown) (no date) (unknown) (unknown) Blood Pressure Location Rt brachial (units unknown) (unknown) (unknown) (no date) (unknown) (unknown) Breast cancer (units unknown) (unknown) (unknown) (no date) (unknown) (unknown) Brother Deceas ed Diabetes mellitus (units unknown) (unknown) (unknown) (no date) (unknown) (unknown) Brother Deceas ed Heart disease (units unknown) (unknown) (unknown) (no date) (unknown) (unknown) Chief Complaint (uni ts unknown) (unknown) (unknown) (no date) (unknown) (unknown) Chief Complain t: Pessary check (units unknown) (unknown) (unknown) (no date) (unknown) (unknown) Confirmed 04/02/23] (units unknown) (unknown) (unknown) (no date) (unknown) (unknown) Conjunctivae: conjunctivae normal (units unknown) (unknown) (unknown) (no date) (unknown) (unknown) Const (units unknown) (unknown) (unknown) (no date) (unknown) (unknown) 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 (units unknown) (unknown) (unknown) (no date) (unknown) (unknown) Details: (units unknown) (unknown) (unknown) (no date) (unknown) (unknown) Diabetes mellitus (u nits unknown) (unknown) (unknown) (no date) (unknown) (unknown) Documented By: Mamadou Bustamante MD 04/02/23 0847 (units unknown) (unknown) (unknown) (no date) (unknown) (unknown) Documenting clinical information in EHR/Medical record: 5 (units unknown) (unknown) (unknown) (no date) (unknown) (unknown) EOM: EOM intac t bilaterally (units unknown) (unknown) (unknown) (no date) (unknown) (unknown) Ears: hearing grossly normal bilaterally (units unknown) (unknown) (unknown) (no date) (unknown) (unknown) Effort + Inspection: normal respiratory effort and able to speak in complete (units unknown) (unknown) (unknown) (no date) (unknown) (unknown) Estradiol pear ls 10 mcg vaginal 2XW #30 supp 03/14/23 [Rx Confirmed 04/02/23] (units unknown) (unknown) (unknown) (no date) (unknown) (unknown) Exam (units unknown) (unknown) (unknown) (no date) (unknown) (unknown) External Femal e Exam: normal external appearance (Normal for age and parity), (units unknown) (unknown) (unknown) (no date) (unknown) (unknown) Eyes (units unknown) (unknown) (unknown) (no date) (unknown) (unknown) Face and sinus : face symmetric (units unknown) (unknown) (unknown) (no date) (unknown) (unknown) Family History (units unknown) (unknown) (unknown) (no date) (unknown) (unknown) Father d Osteoporosis (units unknown) (unknown) (unknown) (no date) (unknown) (unknown) [facility] (units unknown) (unknown) (unknown) (no date) (unknown) (unknown) Flexhaler) 1 inhalation inhalation DAILY 12/29/19 [History Confirmed 04/02/23] (units unknown) (unknown) (unknown) (no date) (unknown) (unknown) (units unknown) (unknown) (unknown) (no date) (unknown) (unknown) General: appea mar[place]ario normal, both eyes and all related structures (units unknown) (unknown) (unknown) (no date) (unknown) (unknown) General: cooperative, comfortable and no acute distress (units unknown) (unknown) (unknown) (no date) (unknown) (unknown) Gynecology Visit (un its unknown) (unknown) (unknown) (no date) (unknown) (unknown) HENMT (units unknown) (unknown) (unknown) (no date) (unknown) (unknown) HPI (units unknown) (unknown) (unknown) (no date) (unknown) (unknown) Head: normal t o inspection, normocephalic and atraumatic (units unknown) (unknown) (unknown) (no date) (unknown) (unknown) Headache (units unknown) (unknown) (unknown) (no date) (unknown) (unknown) Health Managem ent reviewed with patient: No (units unknown) (unknown) (unknown) (no date) (unknown) (unknown) Health Management (u nits unknown) (unknown) (unknown) (no date) (unknown) (unknown) Height 5 ft 0.5 in ( units unknown) (unknown) (unknown) (no date) (unknown) (unknown) History of car pal tunnel repair (units unknown) (unknown) (unknown) (no date) (unknown) (unknown) History of sin us surgery (units unknown) (unknown) (unknown) (no date) (unknown) (unknown) History of spi nal fusion (units unknown) (unknown) (unknown) (no date) (unknown) (unknown) History of tonsillectomy (units unknown) (unknown) (unknown) (no date) (unknown) (unknown) IV .q6mo 07/25 [History Confirmed 04/02/23] (units unknown) (unknown) (unknown) (no date) (unknown) (unknown) Intake Note: (units unknown) (unknown) (unknown) (no date) (unknown) (unknown) Intake perform ed by: Iliana Heredia (units unknown) (unknown) (unknown) (no date) (unknown) (unknown) Intake (units unknown) (unknown) (unknown) (no date) (unknown) (unknown) Intake- Mohan gore Staff (units unknown) (unknown) (unknown) (no date) (unknown) (unknown) Judgment: judg ment good (units unknown) (unknown) (unknown) (no date) (unknown) (unknown) Last Menstural Cycle + Details (units unknown) (unknown) (unknown) (no date) (unknown) (unknown) Loc: [facility] (units unknown) (unknown) (unknown) (no date) (unknown) (unknown) Medical Histor y (units unknown) (unknown) (unknown) (no date) (unknown) (unknown) Medications (units unknown) (unknown) (unknown) (no date) (unknown) (unknown) Mental Status: mental status grossly normal (units unknown) (unknown) (unknown) (no date) (unknown) (unknown) Mood: congruen t mood (units unknown) (unknown) (unknown) (no date) (unknown) (unknown) Mother d Heart disease (units unknown) (unknown) (unknown) (no date) (unknown) (unknown) Theresa returns today for her 2 month pessary check after switching over to a (units unknown) (unknown) (unknown) (no date) (unknown) (unknown) NAUSEA/ PASSED OUT ( units unknown) (unknown) (unknown) (no date) (unknown) (unknown) Neck (units unknown) (unknown) (unknown) (no date) (unknown) (unknown) Neck: normal v isual inspection (units unknown) (unknown) (unknown) (no date) (unknown) (unknown) Nutritional Appearance: average body habitus (units unknown) (unknown) (unknown) (no date) (unknown) (unknown) 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 (units unknown) (unknown) (unknown) (no date) (unknown) (unknown) Patient: Theresa Rodriguez MR#: [id number] (units unknown) (unknown) (unknown) (no date) (unknown) (unknown) Pelvic Support : cystocele (Stage 3) and vaginal apex descent (Stage 2) moderate (units unknown) (unknown) (unknown) (no date) (unknown) (unknown) Per patient st ated that the bladder is coming out even with the pessary. (units unknown) (unknown) (unknown) (no date) (unknown) (unknown) Performing a medically appropriate exam and/or evaluation: 5 (units unknown) (unknown) (unknown) (no date) (unknown) (unknown) Pessary maintenance (units unknown) (unknown) (unknown) (no date) (unknown) (unknown) Plan (units unknown) (unknown) (unknown) (no date) (unknown) (unknown) Position Sitting (un its unknown) (unknown) (unknown) (no date) (unknown) (unknown) Post insertion instructions provided and follow-up will be in 1 month or as (units unknown) (unknown) (unknown) (no date) (unknown) (unknown) Preparing to s ee the patient, i.e., chart review, review of tests: 5 (units unknown) (unknown) (unknown) (no date) (unknown) (unknown) Problem-specif ic ROS positives included with the HPI (units unknown) (unknown) (unknown) (no date) (unknown) (unknown) Psych (units unknown) (unknown) (unknown) (no date) (unknown) (unknown) ROS Narrative (units unknown) (unknown) (unknown) (no date) (unknown) (unknown) ROS Narrative: (unit s unknown) (unknown) (unknown) (no date) (unknown) (unknown) ROS (units unknown) (unknown) (unknown) (no date) (unknown) (unknown) Reason For Visit (un its unknown) (unknown) (unknown) (no date) (unknown) (unknown) Regular) 2 ea PO DAILY ##0 01/10/18 [History Confirmed 04/02/23] (units unknown) (unknown) (unknown) (no date) (unknown) (unknown) Resp (units unknown) (unknown) (unknown) (no date) (unknown) (unknown) Ring pessary w ith support replaced with 70 mm [place] pessary which seems to (units unknown) (unknown) (unknown) (no date) (unknown) (unknown) Sclera: sclera e normal (units unknown) (unknown) (unknown) (no date) (unknown) (unknown) Signed By: <Electronically signed by Mamadou Bustamante MD> (units unknown) (unknown) (unknown) (no date) (unknown) (unknown) Signed (units unknown) (unknown) (unknown) (no date) (unknown) (unknown) Smoking Status : Never smoker (units unknown) (unknown) (unknown) (no date) (unknown) (unknown) Social History (unit s unknown) (unknown) (unknown) (no date) (unknown) (unknown) Speculum Exam - Cervix: normal appearance of the cervix (units unknown) (unknown) (unknown) (no date) (unknown) (unknown) Speculum Exam - Vagina: abnormal vaginal discharge malodorous and yellow, vagina (units unknown) (unknown) (unknown) (no date) (unknown) (unknown) Speech and Movement: speech and movement normal (units unknown) (unknown) (unknown) (no date) (unknown) (unknown) Status post epidural steroid injection (04/15/18) (units unknown) (unknown) (unknown) (no date) (unknown) (unknown) Status: Acute (units unknown) (unknown) (unknown) (no date) (unknown) (unknown) Stroke (units unknown) (unknown) (unknown) (no date) (unknown) (unknown) Surgical Histo ry (units unknown) (unknown) (unknown) (no date) (unknown) (unknown) This note may have been all or partially generated using voice recognition (units unknown) (unknown) (unknown) (no date) (unknown) (unknown) Thought Conten t: normal (units unknown) (unknown) (unknown) (no date) (unknown) (unknown) Thought Proces s: normal (units unknown) (unknown) (unknown) (no date) (unknown) (unknown) Time Coding Mi nutes Spent: (must be on same date of service/appointment ) (units unknown) (unknown) (unknown) (no date) (unknown) (unknown) Time Spent (units unknown) (unknown) (unknown) (no date) (unknown) (unknown) Tobacco + Subs tance Use (units unknown) (unknown) (unknown) (no date) (unknown) (unknown) Tobacco Status (unit s unknown) (unknown) (unknown) (no date) (unknown) (unknown) Total Time: 25 (unit s unknown) (unknown) (unknown) (no date) (unknown) (unknown) Urethra: cindy l appearance of the urethra (units unknown) (unknown) (unknown) (no date) (unknown) (unknown) Vaginal prolapse (un its unknown) (unknown) (unknown) (no date) (unknown) (unknown) Visit Reasons: 2 mo Pessary check (units unknown) (unknown) (unknown) (no date) (unknown) (unknown) Vitals (units unknown) (unknown) (unknown) (no date) (unknown) (unknown) Weight 110 lb (units unknown) (unknown) (unknown) (no date) (unknown) (unknown) [History Confi rmed 04/02/23] (units unknown) (unknown) (unknown) (no date) (unknown) (unknown) alcohol intake : never (units unknown) (unknown) (unknown) (no date) (unknown) (unknown) ascorbic acid (vitamin C) 500 mg tablet 500 mg PO QDAY ##0 01/10/18 [History (units unknown) (unknown) (unknown) (no date) (unknown) (unknown) aspirin 81 mg tablet,delayed release (Adult Aspirin Regimen) 81 mg PO DAILY (units unknown) (unknown) (unknown) (no date) (unknown) (unknown) atorvastatin 4 0 mg tablet 40 mg PO DAILY 11/06/21 [History Confirmed 04/02/23] (units unknown) (unknown) (unknown) (no date) (unknown) (unknown) atrophic and n ot erythematous (units unknown) (unknown) (unknown) (no date) (unknown) (unknown) ay occur. Occasional wrong-word or 'sound-alike' substitutions may have (units unknown) (unknown) (unknown) (no date) (unknown) (unknown) budesonide 180 mcg/actuation breath activated powder inhaler (Pulmicort (units unknown) (unknown) (unknown) (no date) (unknown) (unknown) calcitonin (sa lmon) 200 unit/actuation nasal spray 1 spray intranasal (ALT) (units unknown) (unknown) (unknown) (no date) (unknown) (unknown) calcium citrat e 250 mg calcium-vitamin D3 5 mcg (200 unit) tablet (Citracal (units unknown) (unknown) (unknown) (no date) (unknown) (unknown) come down to t he introitus cause patient's significant discomfort. (units unknown) (unknown) (unknown) (no date) (unknown) (unknown) cyanocobalamin (vitamin B-12) 500 mcg lozenges (Vitamin B-12) 500 mcg PO DAILY (units unknown) (unknown) (unknown) (no date) (unknown) (unknown) docusate sodiu m 100 mg tablet 100 mg PO BID #30 tabs 11/09/21 [Rx Confirmed (units unknown) (unknown) (unknown) (no date) (unknown) (unknown) have occurred. If there are any questions, please contact the Medical Records (units unknown) (unknown) (unknown) (no date) (unknown) (unknown) household memb ers: spouse (units unknown) (unknown) (unknown) (no date) (unknown) (unknown) larger ring pe ssary with support. The pessary unfortunately is continuing to (units unknown) (unknown) (unknown) (no date) (unknown) (unknown) magnesium oxid e 400 mg PO DAILY ##0 01/10/18 [History Confirmed 04/02/23] (units unknown) (unknown) (unknown) (no date) (unknown) (unknown) metoprolol succinate 25 mg tablet,extended release 24 hr 25 mg PO DAILY 12/29/19 (units unknown) (unknown) (unknown) (no date) (unknown) (unknown) multivitamin (Multiple Vitamins tablet) 1 tab PO QDAY ##0 01/10/18 [History (units unknown) (unknown) (unknown) (no date) (unknown) (unknown) needed. (units unknown) (unknown) (unknown) (no date) (unknown) (unknown) normal appeara nce of the urethra and no lesions (units unknown) (unknown) (unknown) (no date) (unknown) (unknown) occurred due t o the inherent limitations of voice recognition software. Please (units unknown) (unknown) (unknown) (no date) (unknown) (unknown) omeprazole 20 mg capsule,delayed release 20 mg PO QDAY@0600 ##0 01/10/18 (units unknown) (unknown) (unknown) (no date) (unknown) (unknown) pramipexole [F rom MIRAPEX] Allergy (Severe, Verified 04/02/23 09:02) (units unknown) (unknown) (unknown) (no date) (unknown) (unknown) provide excell ent support and is not uncomfortable for the patient. (units unknown) (unknown) (unknown) (no date) (unknown) (unknown) read the note carefully and recognize, using context, where these substitutions (units unknown) (unknown) (unknown) (no date) (unknown) (unknown) sentences (units unknown) (unknown) (unknown) (no date) (unknown) (unknown) software. 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 (units unknown) (unknown) (unknown) (no date) (unknown) (unknown) warfarin 3 mg tablet 3 mg PO DAILY 02/12/19 [History Confirmed 04/02/23] (units unknown) (unknown) (unknown) (no date) (unknown) (unknown) zoledronic aci d 5 mg/100 mL in mannitol 5 %-water intravenous piggybck (Reclast) (units unknown) (unknown) Result panel 11 (unknown) (no date) (unknown) (unknown) 3.0 (units unknown) (unknown) (unknown) (no date) (unknown) (unknown) 34.3 seconds (unknown ) Result panel 12 (unknown) (no date) (unknown) (unknown) 3.0 (units unknown) (unknown) (unknown) (no date) (unknown) (unknown) 34.3 seconds (unknown ) Result panel 13 (unknown) (no date) (unknown) (unknown) 3.0 (units unknown) (unknown) (unknown) (no date) (unknown) (unknown) 34.3 seconds (unknown ) Social History date description facility 2023-02-12 00:00 Never smoked tobacco (finding) [facility] 2023-02-14 00:00 Never smoked tobacco (finding) [facility] 2023-04-02 00:00 Never smoked tobacco (finding) [facility] Vital Signs date measurement value units 2023-02-12 00:00 BMI 21.1 kg/m2 2023-02-12 00:00 BP_diastolic 68 mmHg 2023-02-12 00:00 BP_systolic 134 mmHg 2023-02-12 00:00 heart_rate 60 /min 2023-02-12 00:00 height_metric 153.67 cm 2023-02-12 00:00 height_standard 60.5 in 2023-02-12 00:00 o2_saturation 96 % 2023-02-12 00:00 weight_metric 49.89 kg 2023-02-12 00:00 weight_standard 109.99 lb 2023-02-14 00:00 BMI 21.1 kg/m2 2023-02-14 00:00 BP_diastolic 84 mmHg 2023-02-14 00:00 BP_systolic 132 mmHg 2023-02-14 00:00 height_metric 153.67 cm 2023-02-14 00:00 height_standard 60.5 in 2023-02-14 00:00 weight_metric 49.89 kg 2023-02-14 00:00 weight_standard 109.99 lb 2023-04-02 00:00 BMI 21.1 kg/m2 2023-04-02 00:00 BP_diastolic 60 mmHg 2023-04-02 00:00 BP_systolic 130 mmHg 2023-04-02 00:00 height_metric 153.67 cm 2023-04-02 00:00 height_standard 60.5 in 2023-04-02 00:00 weight_metric 49.89 kg 2023-04-02 00:00 weight_standard 109.99 lb
[2023-04-20] MEDS ORDERED: KETOROLAC 30 MG/ML VIAL IVP STA (15:27)
[2023-04-20] MEDS ORDERED: iohexoL-300 100 ML VIAL ONE (15:45)
[2023-04-20 15:51] LABS: BILIRUBIN,URINE NEGATIVE (NEGATIVE); GLUCOSE, URINE (UA) NEGATIVE (NEGATIVE); KETONES,URINE (UA) NEGATIVE (NEGATIVE); LEUKOCYTE ESTERASE, URINE NEGATIVE (NEGATIVE); NITRITE,URINE NEGATIVE (NEGATIVE); OCCULT BLOOD,URINE NEGATIVE (NEGATIVE); PROTEIN,URINE NEGATIVE (NEGATIVE); UROBILINOGEN,URINE 0.2 (NORMAL) E.U./dL (NORMAL)
[2023-04-20 15:53] LABS: CLARITY,URINE CLEAR (CLEAR)
[2023-04-20 16:01] LABS: BASOPHILS # (AUTO) 0.1 10^3/uL (0.0-0.1); BASOPHILS % (AUTO) 1.2 %; EOSINOPHILS # (AUTO) 0.1 10^3/uL (0.0-0.7); EOSINOPHILS % (AUTO) 1.2 %; HCT - HEMATOCRIT 39.8 % (37.0-47.0); LYMPHOCYTES # (AUTO) 2.2 10^3/uL (1.5-3.5); LYMPHOCYTES % (AUTO) 19.3 %; MEAN CORPUSCULAR HEMOGLOBIN 33.2 pg (27.0-31.0); MEAN CORPUSCULAR HGB CONC 32.7 g/dL (32.0-36.0); MEAN CORPUSCULAR VOLUME 101.5 fL (81.0-99.0); MEAN PLATELET VOLUME 9.8 fL (7.9-10.8); MONOCYTES % (AUTO) 8.9 %; NEUTROPHILS # (AUTO) 7.8 10^3/uL (1.5-6.6); PLT - PLATELET COUNT 269 10^3/uL (130-450); RED BLOOD COUNT 3.92 10^6/uL (4.20-5.40); WHITE BLOOD COUNT 11.3 x10^3/uL (4.8-10.8)
[2023-04-20 16:07] LABS: INR 2.9 (0.8-1.2)
[2023-04-20 16:13] LABS: ALBUMIN 4.2 g/dL (3.2-5.5); ALBUMIN/GLOBULIN RATIO 1.1 (1.0-2.2); BILIRUBIN,TOTAL 1.1 mg/dL (0.2-1.0); CALCIUM 8.8 mg/dL (8.5-10.3); CREATININE 0.8 mg/dL (0.4-1.0); POTASSIUM 3.8 mmol/L (3.5-5.0); TOTAL PROTEIN 8.2 g/dL (6.7-8.2)
[2023-04-20] MEDS ORDERED: iohexoL-300 100 ML VIAL IVP ONE (16:55)
--- NOTE | 2023-04-20 17:15 | ED Physician Documentation ---
PD HPI ABD PAIN - Stated complaint Stated Complaint: BACK PX/FEMALE - Chief complaint Chief Complaint: General - History obtained from History obtained from: Patient, Family - History of Present Illness Timing - onset: Today Timing - duration: Hours Timing - details: Gradual onset, Still present Quality: Sharp, Pain Location: All over / everywhere Radiation: Lower back Improved by: Laying still Worsened by: Moving, Position Associated symptoms: Nausea, Constipation. No: Vomiting Similar symptoms before: Diagnosis (constipation) Recently seen: Not recently seen - Additional information Additional information: Conchis Rodriguez is a an 87-year-old female who has a history of chronic constipation and back pain. She has severe osteoporosis and a number of compression fractures in her back and she has had some recent back pain that is worse than normal and she took a dose of tramadol about 4 days ago. She has been constipated since and she has now developed some abdominal pain associated with this. She presents to the emergency department with these concerns. She has had constipation bad enough previously that she had to be admitted to [facility] for 4 days. Review of Systems Constitutional: denies: Fever Ears: denies: Ear pain Nose: denies: Congestion Throat: denies: Sore throat Cardiac: denies: Chest pain / pressure Respiratory: denies: Dyspnea, Cough GI: reports: Abdominal Pain, Nausea, Constipation. denies: Vomiting : denies: Dysuria, Frequency Skin: denies: Rash Musculoskeletal: reports: Back pain. denies: Neck pain, Extremity pain PD PAST MEDICAL HISTORY - Past Medical History Cardiovascular: Murmur Respiratory: Asthma Neuro: None Endocrine/Autoimmune: None GI: GERD CRIB PAD MAKER: None : None HEENT: Chronic sinusitis Psych: None Musculoskeletal: Osteoarthritis, Osteopenia Derm: None - Past Surgical History Past Surgical History: Yes Ortho: Carpal Tunnel surgery, Spine surgery Cardiovascular: CABG, Valve replacement, Pacemaker - Present Medications Home Medications: Ambulatory Orders Medication Instructions Recorded Confirmed Beclomethasone Dipropionate [Qvar] 1 spray PO DAILY 05/01/16 12/18/16 Fluticasone [Flonase] 1 spray PO DAILY 05/01/16 12/18/16 Meclizine HCl [Antivert] 25 mg PO Q6H PRN #30 tablet 05/01/16 12/18/16 raNITIdine [Zantac] 150 mg PO DAILY 05/01/16 12/18/16 Albuterol Sulfate [Proair Hfa 1 puffs INH Q4HR PRN 11/21/16 12/18/16 Inhaler] Ascorbic Acid [Vitamin C] 500 mg PO DAILY 11/21/16 12/18/16 Aspirin [Aspir-Low] 81 mg PO DAILY 11/21/16 12/18/16 Calcium Carbonate/Vitamin D3 1 each PO DAILY 11/21/16 12/18/16 [Calcium 600-Vit D3 400 Tablet] Magnesium Oxide [Magnesium] 400 mg PO DAILY 11/21/16 12/18/16 Multivitamin [Multiple Vitamins] 1 tab PO DAILY 11/21/16 12/18/16 Meclizine [Antivert] 12.5 mg PO Q6H PRN #30 tablet 04/27/19 dexAMETHasone [Decadron] 4 mg PO DAILY #5 tablet 04/27/19 Magnesium Citrate 296 ml PO ONCE PRN #296 ml 11/01/21 cephALEXin [Keflex] 500 mg PO Q6H #20 cap 11/01/21 - Allergies Allergies/Adverse Reactions: Allergies Allergy/AdvReac Type Severity Reaction Status Date / Time gabapentin AdvReac Dizziness Verified 04/20/23 14:15 pramipexole di-HCl * AdvReac Dizziness Verified 04/20/23 14:15 [From Mirapex] - Social History Does the pt smoke?: No Smoking Status: Never smoker Does the pt drink ETOH?: No Does the pt have substance abuse?: No - Immunizations Immunizations are current?: Yes - POLST Patient has POLST: No PD ED PE NORMAL - Vitals Vital signs reviewed: Yes - General General: Alert and oriented X 3, No acute distress (Hypertensive), Well developed/nourished - HEENT HEENT: Atraumatic, PERRL, EOMI - Neck Neck: Supple, no meningeal sign, No bony TTP - Cardiac Cardiac: RRR, No murmur - Respiratory Respiratory: No respiratory distress, Clear bilaterally - Abdomen Abdomen: Normal bowel sounds, Soft, No organomegaly, Other (Mild generalized tenderness the abdomen does appear slightly distended) - Back Back: No CVA TTP, Other (Midline point tenderness to the lower lumbar spine and mid lumbar spine.) - Derm Derm: Normal color, Warm and dry, No rash - Extremities Extremities: No deformity, No edema - Neuro Neuro: Alert and oriented X 3, 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, No motor deficit, No sensory deficit, Normal speech Eye Opening: Spontaneous Motor: Obeys Commands Verbal: Oriented GCS Score: 15 - Psych Psych: Normal mood, Normal affect Results - Vitals Vitals: Vital Signs - 24 hr 04/20/23 04/20/23 04/20/23 14:11 14:15 16:15 Temperature 36.5 C 36.5 C Heart Rate 81 81 80 Respiratory 16 16 16 Rate Blood Pressure 156/86 H 156/86 H 140/80 H O2 Saturation 99 99 98 04/20/23 18:00 Temperature 36.5 C Heart Rate 82 Respiratory 16 Rate Blood Pressure 138/88 H O2 Saturation 100 Oxygen O2 Source Room air - Labs Labs: Laboratory Tests 04/20/23 04/20/23 04/20/23 15:37 15:53 15:53 WBC 11.3 H RBC 3.92 L Hgb 13.0 Hct 39.8 MCV 101.5 H MCH 33.2 H MCHC 32.7 RDW 17.0 H Plt Count 269 MPV 9.8 Neut # (Auto) 7.8 H Lymph # (Auto) 2.2 Rowan # (Auto) 1.0 Eos # (Auto) 0.1 Baso # (Auto) 0.1 Absolute Nucleated RBC 0.00 Nucleated RBC % 0.0 PT 30.0 H INR 2.9 H Sodium Potassium Chloride Carbon Dioxide Anion Gap BUN Creatinine Estimated GFR (MDRD) Glucose Calcium Total Bilirubin AST ALT Alkaline Phosphatase Total Protein Albumin Globulin Albumin/Globulin Ratio Lipase Urine Color YELLOW Urine Clarity CLEAR Urine pH 7.0 Ur Specific [place] <=1.005 Urine Protein NEGATIVE Urine Glucose (UA) NEGATIVE Urine Ketones NEGATIVE Urine Occult Blood NEGATIVE Urine Nitrite NEGATIVE Urine Bilirubin NEGATIVE Urine Urobilinogen 0.2 (NORMAL) Ur Leukocyte Esterase NEGATIVE Ur Microscopic Review NOT INDICATED Urine Culture Comments NOT INDICATED 04/20/23 15:53 WBC RBC Hgb Hct MCV MCH MCHC RDW Plt Count MPV Neut # (Auto) Lymph # (Auto) Rowan # (Auto) Eos # (Auto) Baso # (Auto) Absolute Nucleated RBC Nucleated RBC % PT INR Sodium 139 Potassium 3.8 Chloride 106 Carbon Dioxide 26 Anion Gap 7.0 BUN 11 Creatinine 0.8 Estimated GFR (MDRD) 68 L Glucose 92 Calcium 8.8 Total Bilirubin 1.1 H AST 35 ALT 23 Alkaline Phosphatase 73 Total Protein 8.2 Albumin 4.2 Globulin 4.0 Albumin/Globulin Ratio 1.1 Lipase 36 Urine Color Urine Clarity Urine pH Ur Specific [place] Urine Protein Urine Glucose (UA) Urine Ketones Urine Occult Blood Urine Nitrite Urine Bilirubin Urine Urobilinogen Ur Leukocyte Esterase Ur Microscopic Review Urine Culture Comments - Rads (name of study) CT ab/pel w Relevant Findings:: Prelim report reviewed (Impression: Large amount of fecal debris throughout the colon with sparing of the rectum and sigmoid. No evidence of small bowel obstruction. Incidental cholelithiasis without cholecystitis. Additional chronic findings as above.), EMP independent interpretation of test PD Medical Decision Making - ED course Complexity details: reviewed results, re-evaluated patient, considered differential, d/w patient, d/w family ED course: 87-year-old female with concerns of constipation and back pain continues to have back pain and she has abdominal pain. We were able to obtain a CT scan of the abdomen pelvis which demonstrated a significant stool load throughout the large intestine even with air-fluid levels. There is a transition point at the sigmoid colon where there is no longer a significant colonic stool burden. No masses discovered.The patient continued to have back pain and was administered Toradol which did have some improvement in her back pain she is not usually taking anti-inflammatories she is on Coumadin. I queried the patient about why she was on Coumadin and she could only tell me that she has had heart surgery she has had a bovine valve placed and she had some work done on the mitral valve as well. She believes that she has had atrial fibrillation. She was unable to tell me why she was on the Coumadin. I found the Toradol did quite well for her back pain and I have asked the patient to ask her primary about why she is specifically on Coumadin with the intention that if she does not need to be on it maybe she could take some anti-inflammatory for control of her pain. She does have chronic constipation and here in the emergency department initially we are able to get some stool out with an enema and the patient states she still feels impacted and I went to reexamine the patient I found that she did have impacted stool and removed some of the impaction following that we did a higher enema and the patient had satisfactory results. She was discharged to home. Departure - Departure Disposition: 01 Home, Self Care Clinical Impression: Constipation Qualifiers: Constipation type: chronic idiopathic constipation Qualified Code(s): K59.04 - Chronic idiopathic constipation Condition: Stable Instructions: ED Constipation Follow-Up: Leah Hook MD [Primary Care Provider] - Comments: Conchis, today it looks like you were very constipated on your CAT scan. It looks like this is probably a chronic problem. My recommendation is that when you have gone a day without stool, use a dose of milk of magnesia instead of the MiraLAX. Once you have cleaned yourself out, start back on the MiraLAX. I am recommending you ask your primary care doctor about why you are on Coumadin. If you do not need to be on this medication you could tolerate taking an anti- inflammatory that may be better for pain control of your chronic back pain. This would be less constipating. Discharge Date/Time: 04/20/23 19:33
--- NOTE | 2023-04-20 17:16 | CT Report ---
PROCEDURE: CT abdomen pelvis with contrast INDICATIONS: abdominal pain constipation hx of obstruction CONTRAST: 100ml omni 300 TECHNIQUE: After the administration of contrast, 5 mm thick sections acquired from the diaphragms to the symphys is. 5 mm thick coronal and sagittal reformats were acquired. For radiation dose reduction, the foll owing was used: automated exposure control, adjustment of mA and/or kV according to patient size. COMPARISON: FINDINGS: Image quality: Excellent. Lung bases and heart: Heart size enlarged. Moderate hiatal hernia. Midline sternotomy wires, pacer wi res and aortic valve replacement Liver: No solid mass. Gallbladder and biliary tree: Cholelithiasis Spleen: No splenomegaly. Pancreas: No pancreatic ductal dilation. Adrenals: No adrenal nodule. Kidneys and ureters: No hydronephrosis. No renal cystic lesion which requires follow up. No solid mas s. Bowel and peritoneum: Large amount of fecal debris throughout the right, transverse and left colon. T he sigmoid and rectum are decompressed. Small bowel unremarkable Lymph nodes: No central or retroperitoneal adenopathy. Vessels: No infrarenal aortic aneurysm. PELVIS Reproductive organs: Hysterectomy. Pessary device noted. Bladder: No abnormal wall thickening, accounting for underdistension. Pelvic lymph nodes: No pelvic adenopathy by size criteria. Bones: No aggressive osseous abnormality. 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 Multilevel compression fractures involve T10, T12 and L1 with vertebroplasty treatment. Unt reated L3 and L4. Other: No significant ventral or inguinal hernia. IMPRESSION: Large amount of fecal debris throughout the colon with sparing of the rectum and sigmoid. No evidence of small bowel obstruction. Incidental cholelithiasis without cholecystitis Additional chronic findings as above Reviewed by: Werner Coates MD on 04/20/2023 4:14 PM AKMARTINA Approved by: Werner Coates MD on 04/20/2023 4:14 PM AKDT Station ID: [id number]
[2023-04-20] MEDS ORDERED: MAGNESIUM HYDROXIDE 2,400 MG/30 ML UDC PO STA (18:04)
[2023-04-20 18:36] VITALS: BP 138/88
== END 2023-04-20 19:33 | disposition home or self-care (01) ==
LOC: ED 14:00
DX: K59.04 Chronic idiopathic constipation (principal)
CPT/HCPCS: 36415; 74177; 80053; 81003; 83690; 85025; 85610; 96374; 99283; 99284; A9270; Q9967; 81001; 87086

== ENCOUNTER 2023-04-23 19:38 | Emergency (ER) | payer MEDICARE, BC ==
--- OUTSIDE RECORDS SUMMARY | 2023-04-23 20:01 | EXTERNAL MEDICAL SUMMARY RPT | Continuity of Care Document ---
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 [facility] 2023-02-21 08:57 Age-related osteopor osis without current pathological [facility] 2023-04-03 11:46 Age-related osteopor osis without current pathological [facility] Results/Labs test date author facility value unit interpretation Result panel 1 (unknown) (no date) (unknown) (unknown) (no value) (units unknown) (unknown) (unknown) (no date) (unknown) (unknown) 02/12/23 (units unknown) (unknown) (unknown) (no date) (unknown) (unknown) [id number] (units unknown) (unknown) (unknown) (no date) (unknown) (unknown) Age related osteoporosis (units unknown) (unknown) (unknown) (no date) (unknown) (unknown) Age/Sex: 87 / F Date of Service: (units unknown) (unknown) (unknown) (no date) (unknown) (unknown) Allergies (units unknown) (unknown) (unknown) (no date) (unknown) (unknown) [place] [address] (units unknown) (unknown) (unknown) (no date) (unknown) [...] (unknown) (no date) (unknown) (unknown) : 7 Acct:[id number] (units unknown) (unknown) (unknown) (no date) (unknown) [...] unknown) (unknown) (unknown) (no date) (unknown) (unknown) [facility] (units unknown) (unknown) (unknown) [...] (unknown) (unknown) (no date) (unknown) (unknown) Patient: Conchis Rodriguez MR#: [id number] (units unknown) (unknown) (unknown) [...] every effort is made to edit content, facility maintenance technician errors (units unknown) (unknown) Result panel 2 [...] unknown) (unknown) (unknown) (no date) (unknown) (unknown) [id number] (units unknown) (unknown) (unknown) (no date) (unknown) (unknown) Age related osteoporosis (units unknown) (unknown) (unknown) (no date) (unknown) (unknown) Age/Sex: 87 / F Date of Service: (units unknown) (unknown) (unknown) (no date) (unknown) (unknown) Allergies (units unknown) (unknown) (unknown) (no date) (unknown) (unknown) [place] [address] (units unknown) (unknown) (unknown) (no date) (unknown) [...] (unknown) (no date) (unknown) (unknown) : 7 Acct:[id number] (units unknown) (unknown) (unknown) (no date) (unknown) [...] (unknown) (unknown) (no date) (unknown) (unknown) Patient: Conchis Rodriguez MR#: [id number] (units unknown) (unknown) (unknown) [...] every effort is made to edit content, facility maintenance technician errors (units unknown) (unknown) (unknown) (no date) [...] unknown) (unknown) (unknown) (no date) (unknown) (unknown) [id number] (units unknown) (unknown) (unknown) (no date) (unknown) (unknown) Affect: normal affect (units unknown) (unknown) (unknown) (no date) (unknown) (unknown) Age related osteoporosis (units unknown) (unknown) (unknown) (no date) (unknown) (unknown) Age/Sex: 87 / F Date of Service: (units unknown) (unknown) (unknown) (no date) (unknown) (unknown) Allergies (units unknown) (unknown) (unknown) (no date) (unknown) (unknown) [place] [address] (units unknown) (unknown) (unknown) (no date) (unknown) [...] (unknown) (no date) (unknown) (unknown) : 7 Acct:[id number] (units unknown) (unknown) (unknown) (no date) (unknown) [...] unknown) (unknown) (unknown) (no date) (unknown) (unknown) Conchis returns for her pessary check today and [...] (unknown) (unknown) (no date) (unknown) (unknown) Patient: Conchis Rodriguez MR#: [id number] (units unknown) (unknown) (unknown) [...] every effort is made to edit content, facility maintenance technician errors (units unknown) (unknown) (unknown) (no date) [...] unknown) (unknown) (unknown) (no date) (unknown) (unknown) [id number] (units unknown) (unknown) (unknown) (no date) (unknown) (unknown) Affect: normal affect (units unknown) (unknown) (unknown) (no date) (unknown) (unknown) Age related osteoporosis (units unknown) (unknown) (unknown) (no date) (unknown) (unknown) Age/Sex: 87 / F Date of Service: (units unknown) (unknown) (unknown) (no date) (unknown) (unknown) Allergies (units unknown) (unknown) (unknown) (no date) (unknown) (unknown) [place] [address] (units unknown) (unknown) (unknown) (no date) (unknown) [...] date) (unknown) (unknown) Counseling and educating the patient/family/rn medicare: 5 (units unknown) (unknown) (unknown) (no date) (unknown) (unknown) DAILY 07/25/22 [History Confirmed 02/12/23] (units unknown) (unknown) (unknown) (no date) (unknown) (unknown) : 7 Acct:[id number] (units unknown) (unknown) (unknown) (no date) (unknown) [...] unknown) (unknown) (unknown) (no date) (unknown) (unknown) Conchis returns for her pessary check today and [...] (unknown) (unknown) (no date) (unknown) (unknown) Patient: Conchis Rodriguez MR#: [id number] (units unknown) (unknown) (unknown) [...] every effort is made to edit content, facility maintenance technician errors m (units unknown) (unknown) (unknown) (no [...] unknown) (unknown) (unknown) (no date) (unknown) (unknown) [id number] (units unknown) (unknown) (unknown) (no date) (unknown) (unknown) Age related osteoporosis (units unknown) (unknown) (unknown) (no date) (unknown) (unknown) Age/Sex: 87 / F Date of Service: (units unknown) (unknown) (unknown) (no date) (unknown) (unknown) Allergies (units unknown) (unknown) (unknown) (no date) (unknown) (unknown) [place] [address] (units unknown) (unknown) (unknown) (no date) (unknown) [...] (unknown) (no date) (unknown) (unknown) : 7 Acct:[id number] (units unknown) (unknown) (unknown) (no date) (unknown) [...] (unknown) (unknown) (no date) (unknown) (unknown) Patient: Conchis Rodriguez MR#: [id number] (units unknown) (unknown) (unknown) [...] every effort is made to edit content, facility maintenance technician errors (units unknown) (unknown) (unknown) (no date) [...] unknown) (unknown) (unknown) (no date) (unknown) (unknown) [id number] (units unknown) (unknown) (unknown) (no date) (unknown) (unknown) Affect: normal affect (units unknown) (unknown) (unknown) (no date) (unknown) (unknown) Age related osteoporosis (units unknown) (unknown) (unknown) (no date) (unknown) (unknown) Age/Sex: 87 / F Date of Service: (units unknown) (unknown) (unknown) (no date) (unknown) (unknown) Allergies (units unknown) (unknown) (unknown) (no date) (unknown) (unknown) [place] [address] (units unknown) (unknown) (unknown) (no date) (unknown) [...] date) (unknown) (unknown) Counseling and educating the patient/family/rn medicare: 5 (units unknown) (unknown) (unknown) (no date) (unknown) (unknown) DAILY 07/25/22 [History Confirmed 02/14/23] (units unknown) (unknown) (unknown) (no date) (unknown) (unknown) : 7 Acct:[id number] (units unknown) (unknown) (unknown) (no date) (unknown) [...] unknown) (unknown) (unknown) (no date) (unknown) (unknown) Conchis returns today with issues regarding her [place] [...] (unknown) (unknown) (no date) (unknown) (unknown) Patient: Conchis Rodriguez MR#: [id number] (units unknown) (unknown) (unknown) [...] every effort is made to edit content, facility maintenance technician errors m (units unknown) (unknown) (unknown) (no [...] unknown) (unknown) (unknown) (no date) (unknown) (unknown) [id number] (units unknown) (unknown) (unknown) (no date) (unknown) (unknown) Age related osteoporosis (units unknown) (unknown) (unknown) (no date) (unknown) (unknown) Age/Sex: 87 / F Date of Service: (units unknown) (unknown) (unknown) (no date) (unknown) (unknown) Allergies (units unknown) (unknown) (unknown) (no date) (unknown) (unknown) [place] [address] (units unknown) (unknown) (unknown) (no date) (unknown) [...] (unknown) (no date) (unknown) (unknown) : 7 Acct:[id number] (units unknown) (unknown) (unknown) (no date) (unknown) [...] (unknown) (unknown) (no date) (unknown) (unknown) Patient: Conchis Rodriguez MR#: [id number] (units unknown) (unknown) (unknown) [...] every effort is made to edit content, facility maintenance technician errors (units unknown) (unknown) Result panel 8 [...] unknown) (unknown) (unknown) (no date) (unknown) (unknown) [id number] (units unknown) (unknown) (unknown) (no date) (unknown) (unknown) Age related osteoporosis (units unknown) (unknown) (unknown) (no date) (unknown) (unknown) Age/Sex: 87 / F Date of Service: (units unknown) (unknown) (unknown) (no date) (unknown) (unknown) Allergies (units unknown) (unknown) (unknown) (no date) (unknown) (unknown) [place], [place] [address] (units unknown) (unknown) (unknown) (no date) (unknown) [...] (unknown) (no date) (unknown) (unknown) : 7 Acct:[id number] (units unknown) (unknown) (unknown) (no date) (unknown) [...] (unknown) (unknown) (no date) (unknown) (unknown) Patient: Conchis Rodriguez MR#: [id number] (units unknown) (unknown) (unknown) [...] every effort is made to edit content, facility maintenance technician errors (units unknown) (unknown) (unknown) (no date) [...] unknown) (unknown) (unknown) (no date) (unknown) (unknown) [id number] (units unknown) (unknown) (unknown) (no date) (unknown) (unknown) Affect: normal affect (units unknown) (unknown) (unknown) (no date) (unknown) (unknown) Age related osteoporosis (units unknown) (unknown) (unknown) (no date) (unknown) (unknown) Age/Sex: 87 / F Date of Service: (units unknown) (unknown) (unknown) (no date) (unknown) (unknown) Allergies (units unknown) (unknown) (unknown) (no date) (unknown) (unknown) [place] [address] (units unknown) (unknown) (unknown) (no date) (unknown) [...] (unknown) (no date) (unknown) (unknown) : 7 Acct:[id number] (units unknown) (unknown) (unknown) (no date) (unknown) (unknown) Degenerative l umbar spinal stenosis (units unknown) (unknown) (unknown) (no date) (unknown) (unknown) Dept at . (units unknown) (unknown) (unknown) (no date) (unknown) (unknown) Details: (units unknown) (unknown) (unknown) (no date) (unknown) (unknown) Diabetes mellitus (u nits unknown) (unknown) (unknown) (no date) (unknown) (unknown) Documented By: Mamadou Bustamante MD 04/02/23 0888 (units unknown) (unknown) (unknown) (no date) (unknown) [...] unknown) (unknown) (unknown) (no date) (unknown) (unknown) Conchis returns today for her 2 month pessary [...] (unknown) (unknown) (no date) (unknown) (unknown) Patient: Conchis Rodriguez MR#: [id number] (units unknown) (unknown) (unknown) [...] every effort is made to edit content, facility maintenance technician errors (units unknown) (unknown) (unknown) (no date) [...] unknown) (unknown) (unknown) (no date) (unknown) (unknown) [id number] (units unknown) (unknown) (unknown) (no date) (unknown) [...] unknown) (unknown) (unknown) (no date) (unknown) (unknown) [place] [address] (units unknown) (unknown) (unknown) (no date) (unknown) [...] date) (unknown) (unknown) Counseling and educating the patient/family/rn medicare: 5 (units unknown) (unknown) (unknown) (no date) (unknown) (unknown) DAILY 07/25/22 [History Confirmed 04/02/23] (units unknown) (unknown) (unknown) (no date) (unknown) (unknown) : 7 Acct:[id number] (units unknown) (unknown) (unknown) (no date) (unknown) [...] unknown) (unknown) (unknown) (no date) (unknown) (unknown) Conchis returns today for her 2 month pessary [...] unknown) (unknown) (unknown) (no date) (unknown) (unknown) [employer] 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
[2023-04-23 20:08] LABS: BASOPHILS # (AUTO) 0.2 10^3/uL (0.0-0.1); BASOPHILS % (AUTO) 1.4 %; EOSINOPHILS # (AUTO) 0.3 10^3/uL (0.0-0.7); EOSINOPHILS % (AUTO) 2.3 %; HCT - HEMATOCRIT 42.7 % (37.0-47.0); HGB - HEMOGLOBIN 13.5 g/dL (12.0-16.0); LYMPHOCYTES # (AUTO) 3.2 10^3/uL (1.5-3.5); LYMPHOCYTES % (AUTO) 26.8 %; MEAN CORPUSCULAR HEMOGLOBIN 31.9 pg (27.0-31.0); MEAN CORPUSCULAR HGB CONC 31.6 g/dL (32.0-36.0); MEAN CORPUSCULAR VOLUME 100.9 fL (81.0-99.0); MEAN PLATELET VOLUME 10.1 fL (7.9-10.8); MONOCYTES # (AUTO) 1.1 10^3/uL (0.0-1.0); MONOCYTES % (AUTO) 9.7 %; NEUTROPHILS % (AUTO) 59.5 %; PLT - PLATELET COUNT 339 10^3/uL (130-450); RED BLOOD COUNT 4.23 10^6/uL (4.20-5.40); RED CELL DISTRIBUTION WIDTH 16.8 % (12.0-15.0); WHITE BLOOD COUNT 11.8 x10^3/uL (4.8-10.8)
--- NOTE | 2023-04-23 20:17 | ED Physician Documentation ---
PD HPI ABD PAIN - Stated complaint Stated Complaint: ABD PAIN - Chief complaint Chief Complaint: Abd Pain - History obtained from History obtained from: Patient - Additional information Additional information: HPI from patient. Patient was treated and released from this emergency department 3 days ago. At that time, she was being evaluated for abdominal pain, and work-up was consistent with constipation (CT showed "large amount of fecal debris throughout the colon with sparing of rectum and sigmoid." No small bowel obstruction. Incidental multiple stones). Patient says she was given milk of magnesia and an enema and she says she felt slightly improved at the time of discharge. However, she says she has not had bowel movement since leaving the emergency department 3 days ago despite alem nuing to use milk of magnesia daily basis along with MiraLAX and a stool softener. Concordantly, she has been experiencing increasing abdominal distention and cramping abdominal pain that waxes and wanes without exacerbating or ameliorating factors. Review of Systems Constitutional: denies: Fever, Chills, Sweats Cardiac: reports: Reviewed and negative Respiratory: reports: Reviewed and negative GI: reports: Abdominal Pain, Abdominal Swelling, Constipation. 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 : None HEENT: Chronic sinusitis Psych: None Musculoskeletal: Osteoarthritis, Osteopenia Derm: None - Past Surgical History Past Surgical History: Yes Ortho: Carpal Tunnel surgery, Spine surgery Cardiovascular: CABG, Valve replacement, Pacemaker - Present Medications Home Medications: Ambulatory Orders Medication Instructions Recorded Confirmed Beclomethasone Dipropionate [Qvar] 1 spray PO DAILY 05/01/16 12/18/16 Fluticasone [Flonase] 1 spray PO DAILY 05/01/16 12/18/16 Meclizine HCl [Antivert] 25 mg PO Q6H PRN #30 tablet 05/01/16 12/18/16 raNITIdine [Zantac] 150 mg PO DAILY 05/01/16 12/18/16 Albuterol Sulfate [Proair Hfa 1 puffs INH Q4HR PRN 11/21/16 12/18/16 Inhaler] Ascorbic Acid [Vitamin C] 500 mg PO DAILY 11/21/16 12/18/16 Aspirin [Aspir-Low] 81 mg PO DAILY 11/21/16 12/18/16 Calcium Carbonate/Vitamin D3 1 each PO DAILY 11/21/16 12/18/16 [Calcium 600-Vit D3 400 Tablet] Magnesium Oxide [Magnesium] 400 mg PO DAILY 11/21/16 12/18/16 Multivitamin [Multiple Vitamins] 1 tab PO DAILY 11/21/16 12/18/16 Meclizine [Antivert] 12.5 mg PO Q6H PRN #30 tablet 04/27/19 dexAMETHasone [Decadron] 4 mg PO DAILY #5 tablet 04/27/19 Magnesium Citrate 296 ml PO ONCE PRN #296 ml 11/01/21 cephALEXin [Keflex] 500 mg PO Q6H #20 cap 11/01/21 Sodium/Potassium/Mag Sulfates 354 ml PO ONCE #1 kit 04/24/23 [Suprep Bowel Prep Kit] - Allergies Allergies/Adverse Reactions: Allergies Allergy/AdvReac Type Severity Reaction Status Date / Time gabapentin AdvReac Dizziness Verified 04/23/23 19:48 pramipexole di-HCl * AdvReac Dizziness Verified 04/23/23 19:48 [From Mirapex] - Social History Does the pt smoke?: No Smoking Status: Never smoker Does the pt drink ETOH?: No Does the pt have substance abuse?: No - Immunizations Immunizations are current?: Yes - POLST Patient has POLST: No PD ED PE NORMAL - Vitals Vital signs reviewed: Yes - General General: Alert and oriented X 3, No acute distress, Well developed/nourished - Cardiac Cardiac: RRR - Respiratory Respiratory: No respiratory distress, Clear bilaterally - Abdomen Abdomen: Normal bowel sounds, Soft, Non tender, Non distended Results - Vitals Vitals: Oxygen O2 Source Room air - Labs Labs: Laboratory Tests 04/23/23 04/23/23 20:03 20:03 WBC 11.8 H RBC 4.23 Hgb 13.5 Hct 42.7 MCV 100.9 H MCH 31.9 H MCHC 31.6 L RDW 16.8 H Plt Count 339 MPV 10.1 Neut # (Auto) 7.0 H Lymph # (Auto) 3.2 [place] # (Auto) 1.1 H Eos # (Auto) 0.3 Baso # (Auto) 0.2 H Absolute Nucleated RBC 0.00 Nucleated RBC % 0.0 Sodium 139 Potassium 3.8 Chloride 101 Carbon Dioxide 31 Anion Gap 7.0 BUN 17 Creatinine 0.9 Estimated GFR (MDRD) 60 L Glucose 130 H Calcium 9.4 Total Bilirubin 0.8 AST 39 ALT 21 Alkaline Phosphatase 89 Total Protein 8.8 H Albumin 4.5 Globulin 4.3 H Albumin/Globulin Ratio 1.0 Lipase 52 H - Rads (name of study) abdominal xrays Relevant Findings:: Prelim report reviewed, See rad report PD Medical Decision Making - ED course Complexity details: reviewed results, re-evaluated patient, considered differential, d/w patient ED course: There was significant delay in obtaining plain-film xrays of abdomen, as patient apparently repeatedly asked for more time to consider whether to have the xrays performed. I was not told this until over 2 hours of delay from when I ordered the xrays. I had explained to the patient the reasoning for the xrays (looking for bowel obstruction pattern, and also to see if the xrays suggested there was stool in rectal vault, I.e. within distance of being able to be manually disempacted). Patient eventually relented and agreed with xrays. These show mild stool burden, with moderate gasseous distention of ascending and descending colon. Results d/w patient. She was given 30g PO lactulose in ED as well as mineral oil enema, but without results. She says she had been admitted to sometime within past 2-3 years for constipation. With patients permission , I asked [facility] to obtain these records. Unfortunately, insists they have absolutely no records, inpatient or otherwise, on this patient except for a single pt/ptt/INR outpatient draw from a few months ago. I informed patient of this, but she still insists she was inpatient (not just in ED) for constipation recently at . In any event, she is in NAD throughout ED stay. The plain-film abdominal xrays do not suggest any stool within area from which manual disempaction would be feasible. She is discharged and I am e-prescribing suprep, with instruction to only drink 1/3 of the preparation at a time, one hour apart for first bottle, then repeat 8-10 hours later with second bottle, stopping at any time she has adequate results. Return precautions reviewed, and I instructed her to contact her PMD in the morning to arrange for next available appointment for reevaluation Departure - Departure Disposition: 01 Home, Self Care Clinical Impression: Constipation Condition: Good Instructions: ED Constipation Follow-Up: Leah Hook MD [Primary Care Provider] - Prescriptions: Sodium/Potassium/Mag Sulfates [Suprep Bowel Prep Kit] 354 ml PO ONCE #1 kit Comments: There were no concerning findings on your blood tests tonight. The x-rays show a large amount of gas throughout the colon, causing some degree of distention (this alone can cause a uncomfortable bloating sensation). The x-rays also show that he still have a moderate amount of stool in the upper abdomen (in the transverse colon). I have electronically submitted a prescription for a bowel prep to the [facility] pharmacy in [place]. Follow the instructions on how to prepare the bowel prep, but do not *drink* the bowel prep according to the instructions. Instead, I recommend that you drink ONE THIRD of the first preparation (bottle number 1 plus the recommended additional amount of water). If, after an hour, you do not have adequate results, you can then drink another third, and then the last third an hour after that. If, at any point, you feel that you have expelled enough gas and stool that you feel the symptoms have significantly improved, you do not need to use any more of the bowel prep medication. If, at any time, you experience severe abdominal cramping, do not continue with the bowel prep. If you complete the first bottle and still do not have adequate results, you can use the second bottle but allow 8 to 12 hours between the 2 bottles. Follow-up with your primary care provider, next available appointment (call your primary care provider's office in the morning to arrange follow-up). Discharge Date/Time: 04/24/23 02:08
[2023-04-23 20:21] LABS: ALBUMIN 4.5 g/dL (3.2-5.5); BILIRUBIN,TOTAL 0.8 mg/dL (0.2-1.0); CALCIUM 9.4 mg/dL (8.5-10.3); CREATININE 0.9 mg/dL (0.4-1.0); POTASSIUM 3.8 mmol/L (3.5-5.0); TOTAL PROTEIN 8.8 g/dL (6.7-8.2)
[2023-04-23] MEDS ORDERED: MINERAL OIL ENEMA 133 ML BOTTLE RC STA (21:29)
[2023-04-23] MEDS ORDERED: LACTULOSE 10 GM /15 ML UDC PO STA (21:29)
--- NOTE | 2023-04-24 | XRAY Report ---
PROCEDURE: Abdomen 1 View X-Ray INDICATIONS: constipation TECHNIQUE: One view of the abdomen acquired. COMPARISON: Abdominal x-ray 04/23/2023. FINDINGS: Surgical changes and devices: Postsurgical changes are demonstrated within the lower cervical spine i ncluding bone cement placement at T12 and L1. There are partially sclerotic changes within the medias tinum. A pessary device is noted. There is a mild rightward curvature of the lumbar spine. Bowel: There is a mild fecal load. Distended small and large bowel loops are demonstrated with the c olon measuring up to approximately 7.4 cm. Soft tissues: No suspicious abdominal calcifications. Bones: No suspicious bony lesions. IMPRESSION: 1. Mild fecal loading. 2. No definite evidence of bowel obstruction. 3. Bone cement redemonstrated within the lower cervical spine at T12 and L1. Reviewed by: Anshul Oliveros MD on 04/23/2023 11:59 PM PDT Approved by: Anshul Oliveros MD on 04/23/2023 11:59 PM PDT Station ID: [id number]
[2023-04-24] MEDS ORDERED: KETOROLAC 30 MG/ML VIAL IVP STA (01:30)
[2023-04-24 01:56] VITALS: BP 160/78
== END 2023-04-24 02:08 | disposition home or self-care (01) ==
LOC: ED 19:38
DX: K59.00 Constipation, unspecified (principal)
CPT/HCPCS: 36415; 74018; 80053; 83690; 85025; 96374; 99283; 99284; A9270

== ENCOUNTER 2023-11-06 09:08 | Outpatient (CLI) | payer MEDICARE, BC ==
[2023-11-06 09:38] LABS: BASOPHILS # (AUTO) 0.2 10^3/uL (0.0-0.1); BASOPHILS % (AUTO) 2.1 %; EOSINOPHILS # (AUTO) 0.2 10^3/uL (0.0-0.7); EOSINOPHILS % (AUTO) 2.5 %; HCT - HEMATOCRIT 41.5 % (37.0-47.0); HGB - HEMOGLOBIN 12.9 g/dL (12.0-16.0); LYMPHOCYTES # (AUTO) 1.9 10^3/uL (1.5-3.5); LYMPHOCYTES % (AUTO) 25.6 %; MEAN CORPUSCULAR HEMOGLOBIN 31.9 pg (27.0-31.0); MEAN CORPUSCULAR HGB CONC 31.1 g/dL (32.0-36.0); MEAN CORPUSCULAR VOLUME 102.7 fL (81.0-99.0); MEAN PLATELET VOLUME 9.9 fL (7.9-10.8); MONOCYTES # (AUTO) 0.8 10^3/uL (0.0-1.0); MONOCYTES % (AUTO) 10.3 %; NEUTROPHILS # (AUTO) 4.5 10^3/uL (1.5-6.6); NEUTROPHILS % (AUTO) 59.2 %; PLT - PLATELET COUNT 303 10^3/uL (130-450); RED BLOOD COUNT 4.04 10^6/uL (4.20-5.40); WHITE BLOOD COUNT 7.5 x10^3/uL (4.8-10.8)
[2023-11-06 10:02] LABS: ALBUMIN 4.3 g/dL (3.2-5.5); ALBUMIN/GLOBULIN RATIO 1.4 (1.0-2.2); ALKALINE PHOSPHATASE 88 IU/L (42-121); ALT ALANINE AMINOTRANSFERASE 28 IU/L (10-60); AST ASPARTATE AMINOTRANSFERASE 41 IU/L (10-42); BILIRUBIN,TOTAL 0.7 mg/dL (0.2-1.0); BUN - BLOOD UREA NITROGEN 15 mg/dL (6-20); CALCIUM 9.4 mg/dL (8.5-10.3); CARBON DIOXIDE - CO2 31 mmol/L (21-32); CHLORIDE 105 mmol/L (101-111); CHOL/HDL RATIO 2.1 (<4.4); CHOLESTEROL 145 mg/dL; CREATININE 0.8 mg/dL (0.6-1.3); GFR - MDRD 68 (>89); GLUCOSE 84 mg/dL (74-104); HDL CHOLESTEROL 68 mg/dL; LDL CHOLESTEROL,CALCULATED 65 mg/dL; POTASSIUM 4.3 mmol/L (3.5-4.5); SODIUM 140 mmol/L (135-145); TOTAL PROTEIN 7.3 g/dL (6.4-8.9); TRIGLYCERIDES 62 mg/dL (48-352); VLDL CHOLESTEROL 12 mg/dL
[2023-11-06 10:16] LABS: THYROID STIMULATING HORMONE 1.05 uIU/mL (0.34-5.60)
== END 2023-11-06 09:09 | disposition home or self-care (01) ==
LOC: LAB 09:08
PROVIDERS: ATTEND Family Medicine
DX: I10 Essential (primary) hypertension (principal); M54.16 Radiculopathy, lumbar region; Z13.0 Encounter for screening for diseases of the blood and blood-forming organs and certain disorders involving the immune mechanism; S22.080D Wedge compression fracture of T11-T12 vertebra, subsequent encounter for fracture with routine healing; M54.50 Low back pain, unspecified; G89.29 Other chronic pain; I48.0 Paroxysmal atrial fibrillation; Z95.3 Presence of xenogenic heart valve; K59.04 Chronic idiopathic constipation; Z79.01 Long term (current) use of anticoagulants; Z13.29 Encounter for screening for other suspected endocrine disorder; Z95.2 Presence of prosthetic heart valve
CPT/HCPCS: 36415; 80053; 80061; 83721; 84443; 85025; 85610

== ENCOUNTER 2023-12-10 15:27 | Outpatient (CLI) | payer MEDICARE, BC | END 2023-12-10 15:28 | disposition home or self-care (01) | LOC: LAB 15:27 | PROVIDERS: ATTEND Family Medicine | DX: Z51.81 Encounter for therapeutic drug level monitoring (principal); Z95.2 Presence of prosthetic heart valve; Z79.01 Long term (current) use of anticoagulants | CPT/HCPCS: 36416; 85610 ==

== ENCOUNTER 2024-01-06 16:27 | Outpatient (CLI) | payer MEDICARE, BC | END 2024-01-06 16:28 | disposition home or self-care (01) | LOC: LAB 16:27 | PROVIDERS: ATTEND Family Medicine | DX: Z51.81 Encounter for therapeutic drug level monitoring (principal); Z95.2 Presence of prosthetic heart valve; Z79.01 Long term (current) use of anticoagulants | CPT/HCPCS: 36416; 85610 ==

== ENCOUNTER 2024-01-15 11:01 | Outpatient (CLI) | payer MEDICARE, BC | END 2024-01-15 11:02 | disposition home or self-care (01) | LOC: LAB 11:01 | PROVIDERS: ATTEND Family Medicine | DX: Z51.81 Encounter for therapeutic drug level monitoring (principal); Z95.2 Presence of prosthetic heart valve; Z79.01 Long term (current) use of anticoagulants | CPT/HCPCS: 36416; 85610 ==

== ENCOUNTER 2024-01-22 15:29 | Outpatient (CLI) | payer MEDICARE, BC | END 2024-01-22 15:30 | disposition home or self-care (01) | LOC: LAB 15:29 | PROVIDERS: ATTEND Family Medicine | DX: Z95.2 Presence of prosthetic heart valve (principal); Z79.01 Long term (current) use of anticoagulants | CPT/HCPCS: 36416; 85610 ==

== ENCOUNTER 2024-03-25 09:34 | Outpatient (CLI) | payer MEDICARE, BC | END 2024-03-25 09:35 | disposition home or self-care (01) | LOC: LAB 09:34 | PROVIDERS: ATTEND Family Medicine | DX: Z51.81 Encounter for therapeutic drug level monitoring (principal); Z95.2 Presence of prosthetic heart valve; Z79.01 Long term (current) use of anticoagulants | CPT/HCPCS: 36416; 85610 ==

== ENCOUNTER 2024-04-08 09:21 | Outpatient (CLI) | payer MEDICARE, BC | END 2024-04-08 09:22 | disposition home or self-care (01) | LOC: LAB 09:21 | PROVIDERS: ATTEND Family Medicine | DX: Z51.81 Encounter for therapeutic drug level monitoring (principal); Z79.01 Long term (current) use of anticoagulants; Z95.2 Presence of prosthetic heart valve | CPT/HCPCS: 36416; 85610 ==

== ENCOUNTER 2024-05-22 09:55 | Outpatient (CLI) | payer MEDICARE, BC ==
[2024-05-22 10:14] LABS: BASOPHILS # (AUTO) 0.2 10^3/uL (0.0-0.1); BASOPHILS % (AUTO) 1.7 %; EOSINOPHILS # (AUTO) 0.2 10^3/uL (0.0-0.7); EOSINOPHILS % (AUTO) 2.1 %; HCT - HEMATOCRIT 40.1 % (37.0-47.0); HGB - HEMOGLOBIN 12.6 g/dL (12.0-16.0); LYMPHOCYTES # (AUTO) 2.6 10^3/uL (1.5-3.5); MEAN CORPUSCULAR HEMOGLOBIN 32.1 pg (27.0-31.0); MEAN CORPUSCULAR HGB CONC 31.4 g/dL (32.0-36.0); MEAN CORPUSCULAR VOLUME 102.3 fL (81.0-99.0); MEAN PLATELET VOLUME 10.2 fL (7.9-10.8); MONOCYTES # (AUTO) 0.9 10^3/uL (0.0-1.0); MONOCYTES % (AUTO) 9.1 %; NEUTROPHILS # (AUTO) 6.1 10^3/uL (1.5-6.6); NEUTROPHILS % (AUTO) 60.9 %; PLT - PLATELET COUNT 297 10^3/uL (130-450); RED BLOOD COUNT 3.92 10^6/uL (4.20-5.40); WHITE BLOOD COUNT 10.1 x10^3/uL (4.8-10.8)
[2024-05-22 10:33] LABS: ALBUMIN 4.2 g/dL (3.2-5.5); ALBUMIN/GLOBULIN RATIO 1.2 (1.0-2.2); ALKALINE PHOSPHATASE 96 IU/L (42-121); ALT ALANINE AMINOTRANSFERASE 16 IU/L (10-60); AST ASPARTATE AMINOTRANSFERASE 30 IU/L (10-42); BILIRUBIN,TOTAL 0.7 mg/dL (0.2-1.0); BUN - BLOOD UREA NITROGEN 17 mg/dL (6-20); CALCIUM 10.1 mg/dL (8.5-10.3); CARBON DIOXIDE - CO2 30 mmol/L (21-32); CHLORIDE 105 mmol/L (101-111); CHOL/HDL RATIO 2.1 (<4.4); CHOLESTEROL 139 mg/dL; CREATININE 0.8 mg/dL (0.6-1.3); GFR - MDRD 68 (>89); GLUCOSE 88 mg/dL (74-104); HDL CHOLESTEROL 67 mg/dL; LDL CHOLESTEROL,CALCULATED 56 mg/dL; LDL/HDL RATIO 0.8 (<4.4); SODIUM 140 mmol/L (135-145); TOTAL PROTEIN 7.6 g/dL (6.4-8.9); TRIGLYCERIDES 79 mg/dL; VLDL CHOLESTEROL 16 mg/dL
== END 2024-05-22 09:56 | disposition home or self-care (01) ==
LOC: LAB 09:55
PROVIDERS: ATTEND Family Medicine
DX: I10 Essential (primary) hypertension (principal); M54.16 Radiculopathy, lumbar region; R10.84 Generalized abdominal pain; Z95.3 Presence of xenogenic heart valve; R25.2 Cramp and spasm; E55.9 Vitamin D deficiency, unspecified; E78.00 Pure hypercholesterolemia, unspecified; Z13.0 Encounter for screening for diseases of the blood and blood-forming organs and certain disorders involving the immune mechanism; Z95.2 Presence of prosthetic heart valve; Z79.01 Long term (current) use of anticoagulants
CPT/HCPCS: 36415; 80053; 80061; 82306; 83721; 85025; 85610

== ENCOUNTER 2024-07-04 17:50 | Outpatient (CLI) | payer MEDICARE, BC | END 2024-07-04 17:51 | disposition home or self-care (01) | LOC: LAB 17:50 | PROVIDERS: ATTEND Family Medicine | DX: Z51.81 Encounter for therapeutic drug level monitoring (principal); Z95.2 Presence of prosthetic heart valve; Z79.01 Long term (current) use of anticoagulants | CPT/HCPCS: 36416; 85610 ==

== ENCOUNTER 2024-07-21 15:07 | Outpatient (CLI) | payer MEDICARE, BC | END 2024-07-21 15:08 | disposition home or self-care (01) | LOC: LAB 15:07 | PROVIDERS: ATTEND Family Medicine | DX: Z51.81 Encounter for therapeutic drug level monitoring (principal); Z95.2 Presence of prosthetic heart valve; Z79.01 Long term (current) use of anticoagulants | CPT/HCPCS: 36416; 85610 ==

== ENCOUNTER 2024-07-30 14:04 | Outpatient (CLI) | payer MEDICARE, BC | END 2024-07-30 14:05 | disposition home or self-care (01) | LOC: LAB 14:04 | PROVIDERS: ATTEND Family Medicine | DX: Z51.81 Encounter for therapeutic drug level monitoring (principal); Z79.01 Long term (current) use of anticoagulants; Z95.2 Presence of prosthetic heart valve | CPT/HCPCS: 36416; 85610 ==